=== PATIENT | male | born 1960 | race Caucasian/White ===

== ENCOUNTER 2016-09-17 16:35 | Inpatient (IN) ==
[2016-09-17] MEDS ORDERED: Td (TENIVAC) Vaccine 0.5 ML VIAL IM ONE (18:49)
[2016-09-17] MEDS ORDERED: Ondansetron 4 MG/2 ML VIAL IVP PRN (18:53)
[2016-09-17] MEDS ORDERED: Naloxone 0.4 MG/ML INJ IVP PRN ×2 (18:53→19:52)
[2016-09-17] MEDS ORDERED: NON-FORMULARY MEDICATION 1 EACH EACH (Ranitidine Hcl [Zantac] 150 MG) PO PRN (19:44)
[2016-09-17] MEDS ORDERED: Ibuprofen 800 MG TABLET PO PRN (19:44)
[2016-09-17] MEDS ORDERED: Dextrose Gel 15 GM PO PRN ×2 (19:56)
--- NOTE | 2016-09-17 20:04 | Internal Med History&Physical ---
Date of Encounter: 09/17/16 Time of Encounter: 20:01 Assessment and Plan (1) Sepsis affecting skin Current visit: Yes Status: Acute Discussed case with Dr. boateng podiatry on-call. Supportive care with IV antibiotics vancomycin and Zosyn and clindamycin. IV fluids with boluses. Nothing by mouth for now (2) Gangrene of left foot Current visit: Yes Status: Acute Management as above (3) Diabetes mellitus, insulin dependent (IDDM), controlled Current visit: Yes Status: Acute Insulin sliding scale Internal Medicine - H&P: HPI Chief complaint: Worsening left foot gangrene History of present illness: Mr. Alonso is a 55 year old male with hx of DMII on insulin who presents with worsening Left foot gangrene. It was reported that he stepped on a dirty nail several days ago and was treated with outpatient clindamycin but represents due to failure of therapy. Imaging in the ER suggested gas changes in soft tissue. Was also noted to be toxic and hypotensive. No cx sent prior to antibiotics. Reported hx of drug use or alcohol but unable to accurately verify with patient. Past Med Surg Social Fam HX - Past Medical History Medical history: COPD, diabetes, hypertension, other Psychiatric history: no psych history - Past Surgical History Surgical History: no surgical history - Social History Smoking Status: Current every day smoker Smokeless Tobacco Status: No (UNKNOWN) Alcohol use: occasionally Drug use: opiates, marijuana Internal Medicine - H&P: Meds Insulin NPH/REG 70/30 0 units SQ BID 10/27/15 [History] Metoprolol [Lopressor] 50 mg PO DAILY 10/27/15 [History] Ranitidine HCl [Zantac] 150 mg PO DAILY PRN 08/31/16 [History] Amlodipine Besylate 10 mg PO DAILY #30 tablet 09/09/16 [Rx] Clindamycin HCl 300 mg PO Q6H #40 capsule 09/09/16 [Rx] Doxazosin [Cardura] 4 mg PO HS #30 tablet 09/09/16 [Rx] Magnesium Oxide [Mag-Ox] 400 mg PO BID #14 tablet 09/09/16 [Rx] Ibuprofen 800 mg PO TID PRN #15 tablet 09/16/16 [Rx] Aspirin [Ecotrin] 325 mg PO DAILY 09/17/16 [History] FLUoxetine HCl [PROzac] 20 mg PO DAILY 09/17/16 [History] Lisinopril [Zestril] 10 mg PO DAILY 09/17/16 [History] Multivit-Min/Iron Fum/Folic AC [Wegco-Woysdyu-Pvrgulba Tablet] 1 each PO DAILY 09/17/16 [History] Allergies No Known Allergies Allergy (Verified 10/27/15 15:30) All Systems PM: ROS 14 point review of systems reviewed as best as possible given presentation. Pertinent positive or negative as per HPI or otherwise reviewed as negative - Constitutional Vitals: Temp Pulse Resp BP Pulse Ox 98.3 F 96 40 89/54 100 09/17/16 19:05 09/17/16 19:05 09/17/16 19:20 09/17/16 19:20 09/17/16 19:20 Exam: General - somnolent Eyes - OSIEL. Eye lids intact. No scleral icterus ENT - Oral mucosa pink, dentition intact. External ear clear/dry/intact. No thyromegaly Lymphatics - No cervical/inguinal lympadenopathy Heart - Sinus tachycardia. RRR. S1 and S2 present. No added HS/murmurs appreciated. No elevated JVD appreciated. No calf swellings/erythema Lung - Adequate air entry b/l, No crackes/wheezes appreciated GI - Soft, non-tender. No hepatosplenomegaly/ascities. BS+ - No CVA/suprapubic tenderness or palpable bladder distension Skin - gangrene of left foot MSK - gangrene of left foot with swelling
[2016-09-17] MEDS: 0.9 % Sodium Chloride 1,000 ML IVC SCH ×2 (20:20→23:14)
[2016-09-17] MEDS: Clindamycin 600 MG/50 ML 600 MG/50 ML IV.SOLN IVPB SCH (23:14)
[2016-09-17] MEDS: Piperacillin/Tazobactam 3.375 GM in D5% in Water (Mini-Bag+) 100 ML IVPB SCH (23:14)
--- NOTE | 2016-09-17 23:56 | Podiatry Consult Note ---
Date of Encounter: 09/17/16 Time of Encounter: 23:53 Assessment and Plan (1) Cellulitis Current visit: No Status: Acute The cellulitis is minimal on the patient's foot. The majority of the wound looks as though it is ischemic in nature. The significant ischemia is concerning and for that reason we will order ABIs and consider vascular intervention pending the OMI. At the bedside the wound was debrided to evaluate for any necrotizing fasciitis. A wound debridement at bedside was completed, a 2 cm diameter site was opened on the lateral aspect of the foot to inspect and evaluate for any gas. Cultures were obtained and the site was dressed with Betadine and a dry sterile dressing. At this time we will delay any surgical intervention until the ABIs are back at which time we may need some sort of bypass to increase the patient's blood flow. Qualifiers: Site of cellulitis: extremity Site of cellulitis of extremity: lower extremity Laterality: left Qualified Code(s): L03.116 - Cellulitis of left lower limb History of Present Illness Chief complaint: ischemia left foot HPI: Mr. Alonso is a 55 year old male who stepped on a nail and has an infected wound that has not healed. Patient is relatively unresponsive at this time. Past Med Surg Social Fam HX - Past Medical History Medical history: COPD, diabetes, hypertension, other Psychiatric history: no psych history - Past Surgical History Surgical History: no surgical history - Social History Smoking Status: Current every day smoker Smokeless Tobacco Status: No (UNKNOWN) Alcohol use: occasionally Drug use: opiates, marijuana Medications and Allergies Insulin Aspart Prot/Insuln Asp [Novolog Mix 70-30 Flexpen Syrn] 0 unit SQ BID # 0 10/27/15 [History] Metoprolol [Lopressor] 50 mg PO DAILY 10/27/15 [History] Ranitidine HCl [Zantac] 150 mg PO BID PRN 08/31/16 [History] Amlodipine Besylate 10 mg PO DAILY #30 tablet 09/09/16 [Rx] Doxazosin [Cardura] 4 mg PO HS #30 tablet 09/09/16 [Rx] Magnesium Oxide [Mag-Ox] 400 mg PO BID #14 tablet 09/09/16 [Rx] Ibuprofen 800 mg PO TID PRN #15 tablet 09/16/16 [Rx] Aspirin [Ecotrin] 325 mg PO DAILY 09/17/16 [History] FLUoxetine HCl [PROzac] 20 mg PO DAILY 09/17/16 [History] Lisinopril [Zestril] 20 mg PO DAILY 09/17/16 [History] Multivit-Min/Iron Fum/Folic AC [Lkafr-Aqivorr-Pnvoufuh Tablet] 1 tab PO DAILY [History] Allergies No Known Allergies Allergy (Verified 10/27/15 15:30) All Systems Reviewed: A 10-system review of systems was performed and is negative for pertinent findings except as documented above in the HPI. Physical Exam - Constitutional Vitals: Temp Pulse Resp BP Pulse Ox 97.5 F L 97 26 93/62 100 09/17/16 20:08 09/17/16 21:00 09/17/16 20:15 09/17/16 21:00 09/17/16 20:15 Exam: Left foot ischemia, lateral plantar aspect of the foot and a small amount on the lateral aspect of the foot. The ischemia measures approximately 5 cm in diameter. Pedal pulses difficult to palpate. Will obtain ABIs to further evaluate vascularity. Sensation decreased. The wound was thoroughly explored on the lateral aspect of the foot and opened. It was noted to probe to bone and had a small amount of air under the wound. There did not appear to be gas or necrotizing fasciitis but free air and a wound. Very minimal purulence noted. The wound was more consistent with an ischemic wound. Cultures were obtained. Results - Labs Labs: Abnormal lab results POC Glucose 152 (58-89) H 09/17/16 18:40 All other labs normal. Consult Discharge Plan - Plan Referrals: Mara Kiser WEB PRESS OPERATOR [Primary Care Provider] -
[2016-09-18] MEDS: *HR* Dextrose 50 % in Water (Syg) 50 ML SYRINGE IVP PRN ×2 (00:02→04:46)
[2016-09-18] MEDS: Insulin LISPRO 300 UNITS/3 ML VIAL SQ SCH ×5 (00:02→23:25)
[2016-09-18] MEDS ORDERED: *HR* LORazepam 2 MG/ML VIAL IVP PRN ×3 (02:36)
[2016-09-18 04:10] LABS: Basophils % 0.2 %; Eosinophils # 0.1 K/mcL (0.0-0.6); Eosinophils % 0.4 %; Hematocrit 22.7 % (37.5-50.1); Hemoglobin 7.5 g/dL (12.9-16.9); Immature Granulocytes % 1.1 % (0-4); Lymphocytes # 1.2 K/mcL (0.6-4.6); Lymphocytes % 9.4 %; Mean Corpuscular Hemoglobin 32.8 pg (28.0-33.3); Mean Corpuscular Volume 99.1 fL (83.0-100.0); Mean Platelet Volume 8.9 fL (9.4-12.4); Monocytes # 1.1 K/mcL (0.0-1.3); Monocytes % 8.4 %; Neutrophils # 10.6 K/mcL (1.6-8.9); Platelet Count 311 K/mcL (140-400); Red Blood Count 2.29 M/mcL (4.19-5.50); Red Cell Distribution Width 13.4 % (11.5-14.5); Segmented Neutrophils % 80.5 %
[2016-09-18 04:25] LABS: Calcium 7.2 mg/dL (8.6-10.8); Potassium 3.3 mEq/L (3.5-4.5)
[2016-09-18] MEDS: D5% in Water 1,000 ML IVC PRN (04:44)
[2016-09-18] MEDS: 0.9 % Sodium Chloride 1,000 ML IVC SCH ×4 (04:48→13:52)
[2016-09-18] MEDS: *HR* Enoxaparin 30 MG/0.3 ML SYRINGE SQ SCH (04:48)
[2016-09-18] MEDS: Clindamycin 600 MG/50 ML 600 MG/50 ML IV.SOLN IVPB SCH ×3 (08:17→23:18)
[2016-09-18] MEDS: Pantoprazole 40 MG VIAL IVP SCH (08:18)
[2016-09-18] MEDS ORDERED: Aspirin Enteric Coated 325 MG Tablet PO SCH (09:00)
[2016-09-18] MEDS ORDERED: Vancomycin 0 MG in D5% in Water 250 ML IVPB SCH (09:00)
[2016-09-18] MEDS: Piperacillin/Tazobactam 3.375 GM in D5% in Water (Mini-Bag+) 100 ML IVPB SCH ×3 (09:32→23:19)
[2016-09-18] MEDS: FLUoxetine 20 MG CAPSULE PO SCH (09:35)
[2016-09-18] MEDS ORDERED: Td (TENIVAC) Vaccine 0.5 ML VIAL IM ONE (11:04)
--- NOTE | 2016-09-18 11:48 | Internal Med Progress Note ---
Date of Encounter: 09/18/16 Time of Encounter: 10:00 - Assessment and plan (1) COPD (chronic obstructive pulmonary disease) Current Visit: No Status: Acute Assessment and plan: Patient has wheezes today. Will give him DuoNeb treatment. Will check ABG and chest x-ray. Qualifiers: COPD type: unspecified COPD Qualified Code(s): J44.9 - Chronic obstructive pulmonary disease, unspecified (2) Hypertension Current Visit: No Status: Chronic Assessment and plan: Continue home medications. BP is stable Qualifiers: Hypertension type: essential hypertension Qualified Code(s): I10 - Essential (primary) hypertension (3) Diabetes mellitus, insulin dependent (IDDM), controlled Current Visit: Yes Status: Acute Assessment and plan: Patient has hypoglycemia yesterday. Glucose level [address] patient on sliding-scale coverage only. Closely monitor glucose level. (4) Gangrene of left foot Current Visit: Yes Status: Acute Assessment and plan: We will continue IV fluid, IV antibiotic (cover both aerobic and anaerobic). Lactate level is not high. Podiatry saw patient. Had debridement. Will give patient TD vaccine. Patient is at high risk because he is on vancomycin, need close monitoring. - Time Spent With Patient Greater than 35 minutes - Subjective Interval history: Patient is a 55-year-old male admitted for foot gangrene after step on nails. Past medical history is significant for diabetes, COPD, CKD, hypertension. I saw and examined the patient today. Patient is quite drowsy, very difficult to wake up. Has wheezing. Will order chest x-ray and ABG stat to rule out COPD exacerbation. Vital signs generally stable. Will continue antibiotic, IV fluid, and closely monitor patient. - Constitutional Vitals: Temp Pulse Resp BP Pulse Ox 96.9 F L 97 18 112/64 99 09/18/16 09:36 09/18/16 09:36 09/18/16 09:36 09/18/16 09:36 09/18/16 09:36 General appearance: Present: mild distress Exam: Drowsy, cannot communicate. - Head Head exam: Present: atraumatic, normocephalic - Eye Eye exam: Present: PERRL, conjuntiva pink, sclera anicteric Pupils: Present: PERRL - Neck Neck exam general surgery: Present: supple, trachea midline. Absent: lymphadenopathy - Respiratory Respiratory exam: Present: CTAB. Absent: accessory muscle use, rales, rhonchi, wheezes - Cardiovascular Cardiovascular exam: Present: RRR, +S1, +S2. Absent: diastolic murmur, gallop, rubs, systolic murmur - GI/Abdominal GI/Abdominal exam: Present: normal bowel sounds, soft, no peritoneal signs. Absent: distended, tenderness - Extremities Exam Extremities exam: Present: warm, radial pulses palpable and symetrical. Absent : calf tenderness, cyanotic, pedal edema Additional comments: Left foot gangrene, well dressed. - Neurological Exam Neurological exam: Present: CN II-XII intact, oriented X3, no focal deficits. Absent: pronater drift, facial droop, speech deficit - Skin Skin exam: Present: dry, intact Internal Medicine: Result - Labs CBC & Chem 7: 09/18/16 03:54 09/18/16 03:54 Labs: Short CBC 09/18/16 Range/Units 03:54 WBC 13.2 H (4.3-11.1) K/mcL Hgb 7.5 L (12.9-16.9) g/dL Hct 22.7 L (37.5-50.1) % Plt Count 311 (140-400) K/mcL Neutrophils # 10.6 H (1.6-8.9) K/mcL BMP 09/18/16 03:54 Sodium 137 Potassium 3.3 L Chloride 111 H Carbon Dioxide 16 L BUN 57 H Creatinine 1.77 H Glucose 35 L* Calcium 7.2 L Consult Discharge Plan - Plan Referrals: Mara Kiser, SHIRRING MACHINE OPERATOR AUTOMATIC [Primary Care Provider] -
[2016-09-18] MEDS ORDERED: Ipratropium/Albuterol Neb 3 ML IH PRN (11:54)
[2016-09-18 12:39] LABS: ABG Base Excess -9.4 mEq/L (-2.0 to 3.0); ABG HCO3 14.2 mEQ/L (21-27); ABG Oxygen Saturation 99 % (95-98); ABG PCO2 23 mmHg (35-45); ABG PO2 129 mmHg (85-104); ABG TCO2 14.9 mEq/L (20-26)
[2016-09-18 12:40] LABS: Blood Gas Liter Flow 2 L/MIN
[2016-09-18] MEDS ORDERED: Potassium Chloride 40 MEQ, Lidocaine 1% 2 ML in D5% in Water 500 ML IVPB ONE ×2 (12:53→18:22)
[2016-09-18] MEDS ORDERED: Sodium Bicarbonate 150 MEQ in D5% in Water 1,000 ML IVC SCH (13:00)
--- NOTE | 2016-09-18 13:40 | Event Note ---
Date of Encounter: 09/18/16 Time of Encounter: 12:00 Pt's ABG shows metabolic acidosis and respiratory alkalosis, PH 7.40. BE - 9.0. Pt has no hypoxia or CO2 retention. Will start bicarbonate drip to correct acidosis. Aspirin overdose suspected, will check salicylate level (one item not support aspirin toxicity is that AG is only 11, not increased). Lactate is 0.3. CXR shows right lung pneumonia, pt is on abx Vanco, zosyn, and clindamycin already.
[2016-09-18] MEDS: Ipratropium/Albuterol Neb 3 ML IH SCH ×3 (14:28→20:17)
[2016-09-18] MEDS: Vancomycin 1,000 MG in D5% in Water 250 ML IVPB SCH (15:35)
[2016-09-19] MEDS: Ipratropium/Albuterol Neb 3 ML IH SCH ×7 (00:20→23:52)
[2016-09-19 01:29] LABS: Basophils % 0.3 %; Eosinophils # 0.1 K/mcL (0.0-0.6); Eosinophils % 0.9 %; Hematocrit 24.1 % (37.5-50.1); Hemoglobin 8.1 g/dL (12.9-16.9); Immature Granulocytes % 1.5 % (0-4); Lymphocytes # 1.5 K/mcL (0.6-4.6); Lymphocytes % 11.4 %; Mean Corpuscular HGB Conc 33.6 g/dL (31.6-35.5); Mean Corpuscular Hemoglobin 33.5 pg (28.0-33.3); Mean Corpuscular Volume 99.6 fL (83.0-100.0); Monocytes # 1.2 K/mcL (0.0-1.3); Monocytes % 9.3 %; Neutrophils # 9.9 K/mcL (1.6-8.9); Platelet Count 313 K/mcL (140-400); Red Blood Count 2.42 M/mcL (4.19-5.50); Red Cell Distribution Width 13.7 % (11.5-14.5); Segmented Neutrophils % 76.6 %
[2016-09-19 01:41] LABS: Alanine Aminotransferase 102 Units/L (0-55); Albumin/Globulin Ratio 0.6 (1.1-2.2); Alkaline Phosphatase 269 Units/L (38-126); Aspartate Amino Transferase 257 Units/L (5-34); BUN/Creatinine Ratio 27 (6-26); Calcium 7.2 mg/dL (8.6-10.8); Carbon Dioxide 21 mEq/L (19-29); Chloride 107 mEq/L (98-109); Globulin 3.4 g/dL (2.4-3.5); Glucose 140 mg/dL (70-99); Magnesium 1.9 mg/dL (1.6-2.6); Osmolality,Calculated 292 (280-300); Phosphorous 2.3 mg/dL (2.3-4.7); Potassium 3.2 mEq/L (3.5-4.5); Sodium 135 mEq/L (136-145); Total Protein 5.3 g/dL (6.0-8.3); eGFR For African Americans > 60 (> 60); eGFR For Non-African Americans 51 (> 60)
[2016-09-19 01:42] LABS: Albumin 1.9 g/dL (3.5-5.0); Bilirubin,Total < 0.3 mg/dL (0.2-1.2); Blood Urea Nitrogen 39 mg/dL (8-26)
[2016-09-19 02:03] LABS: Thyroid Stimulating Hormone 1.503 mcIU/mL (0.350-4.840)
[2016-09-19] MEDS ORDERED: Sodium Bicarbonate 150 MEQ in D5% in Water 1,000 ML IVC SCH (06:00)
[2016-09-19] MEDS: Insulin LISPRO 300 UNITS/3 ML VIAL SQ SCH ×3 (06:14→17:20)
[2016-09-19] MEDS: *HR* Enoxaparin 30 MG/0.3 ML SYRINGE SQ SCH (06:14)
[2016-09-19] MEDS: Clindamycin 600 MG/50 ML 600 MG/50 ML IV.SOLN IVPB SCH ×2 (08:49→17:20)
[2016-09-19] MEDS: FLUoxetine 20 MG CAPSULE PO SCH (08:49)
[2016-09-19] MEDS: Pantoprazole 40 MG VIAL IVP SCH (08:49)
[2016-09-19] MEDS ORDERED: *HR* HYDROcodone/Acet 5/325 mg TABLET PO PRN (09:33)
[2016-09-19] MEDS: Piperacillin/Tazobactam 3.375 GM in D5% in Water (Mini-Bag+) 100 ML IVPB SCH ×2 (09:57→17:21)
[2016-09-19] MEDS: 0.9 % Sodium Chloride 1,000 ML IVC SCH (10:07)
--- NOTE | 2016-09-19 11:05 | Arterial Study Report ---
LE Arterial Physiologic Study Patient Name:Isaac Alonso Order Number:[id number] Procedure Date:09/18/2016 Date:1960ge:55 yrs Gender:Male Lt BP:117 / mmHg Rt.BP:115 / mmHgHeart Rate: Location:[facility] Room #: 2N6 Cable Splicer Assistant:Nahomy cMdonald RDCS Referring MD:Pablito Shabazz DPM insulation board back tender:Mara Kiser, BACK SIZER Reading MD:Cali Casey MD , FACS Primary Indications:Ischemia Risk Factors Yes/No Hypertension Yes Diabetes Yes Smoking Current Yes Hypercholesterolemia Yes Anticoagulants Unknown Previous Vascular Surgery Unknown Impressions: 1) Bilateral lower extremities waveform demonstrates moderately diminished hemodynamics. 2) Bilateral Ankle Brachial Index demonstrates moderately occlusive disease. Recommendations: Futher evaluation is recommended. Findings LE Arterial Physiologic Exam: Segmental Pressures: Right: The right posterior tibial pressure is 76 mmHg with an index of 0.65. The right dorsalis pedis pressure is 70 mmHg with an index of 0.6. Left: The left posterior tibial pressure is 71 mmHg with an index of 0.61. The left dorsalis pedis pressure is 80 mmHg with an index of 0.68. PVR: Right: The PVR waveforms are moderately diminished in the right ankle. Left: The PVR waveforms are moderately diminished in the left ankle. Physiologic Test Results: The OMI demonstrates moderate arterial insufficiency on the right and left at rest. Prior Study: No significant change compared to prior study dated: 08/02/2014. PREV RT OMI 0.65 PREV LEFT OMI 0.68. Segmental Pressures Side Location Pressure Index Result Right Posterior Tibial 76 0.65 Moderately Diminished Right Dorsalis Pedis 70 0.60 Moderately Diminished Left Posterior Tibial 71 0.61 Moderately Diminished Left Dorsalis Pedis 80 0.68 Moderately Diminished Ankle Brachial Index Right Systolic Diastolic OMI Brachial 115 0.65 Dorsalis Pedis 70 0.60 Posterior Tibial 76 0.65 Left Systolic Diastolic OMI Brachial 117 0.68 Dorsalis Pedis 80 0.68 Posterior Tibial 71 0.61 Updated by Cali Casey MD, FACS on 09/19/2016 11:02:02 AM with Status of Final Cali Casey MD electronically signed on 09/19/2016 11:02:18 AM with status of Final
--- NOTE | 2016-09-19 14:36 | Internal Med Progress Note ---
Date of Encounter: 09/19/16 Time of Encounter: 10:00 - Assessment and plan (1) COPD (chronic obstructive pulmonary disease) Current Visit: No Status: Acute Assessment and plan: Patient has no wheezes today. Will continue home medication and DuoNeb treatment. Qualifiers: COPD type: unspecified COPD Qualified Code(s): J44.9 - Chronic obstructive pulmonary disease, unspecified (2) Hypertension Current Visit: No Status: Chronic Assessment and plan: Continue home medications. BP is stable Qualifiers: Hypertension type: essential hypertension Qualified Code(s): I10 - Essential (primary) hypertension (3) Diabetes mellitus, insulin dependent (IDDM), controlled Current Visit: Yes Status: Acute Assessment and plan: Place patient on sliding-scale coverage. Closely monitor glucose level. (4) Gangrene of left foot Current Visit: Yes Status: Acute Assessment and plan: We will continue IV fluid, IV antibiotic (cover both aerobic and anaerobic with Vanco, Zosyn, and clindamycin). Lactate level is not high. Podiatry saw patient. Had debridement. Will give patient TD vaccine. Patient is at high risk because he is on vancomycin, need close monitoring. (5) Pneumonia Current Visit: Yes Status: Acute Assessment and plan: Chest x-ray shows pneumonia on the right side. Patient has minimal symptoms. Continue antibiotic treatment. Qualifiers: Pneumonia type: due to Pneumococcus Laterality: right Lung location: unspecified part of lung Qualified Code(s): J13 - Pneumonia due to Streptococcus pneumoniae (6) Ofivx-sn-zpobcra kidney injury Current Visit: Yes Status: Acute Assessment and plan: Will continue hydration and follow up his renal function. Creatinine trended down. Qualifiers: Acute renal failure type: unspecified Chronic kidney disease stage: stage 2 (mild) Qualified Code(s): N17.9 - Acute kidney failure, unspecified; N18.2 - Chronic kidney disease, stage 2 (mild) (7) Elevated liver enzymes Current Visit: Yes Status: Acute Assessment and plan: Probably due to sepsis. However, need to rule out liver disease. We will check US liver and hepatitis panel. Follow-up liver function. (8) Metabolic acidosis Current Visit: Yes Status: Acute Assessment and plan: Improved after treatment. - Time Spent With Patient Greater than 35 minutes - Subjective Interval history: Patient is a 55-year-old male admitted for foot gangrene after step on nails. Past medical history is significant for diabetes, COPD, CKD, hypertension. I saw and examined the patient today. Patient is more awake, alert today. Oriented x 3. Denies cough or SOB. Vitals stable, metabolic acidosis has improved, bicarbonate drip has discontinued. Continue IV antibiotics for pneumonia and foot infection. - Constitutional Vitals: Temp Pulse Resp BP Pulse Ox 97.5 F L 99 18 121/78 100 09/19/16 11:08 09/19/16 11:52 09/19/16 11:08 09/19/16 11:08 09/19/16 11:08 General appearance: Present: mild distress, A&O X 3, no acute distress, answers questions appropriately - Head Head exam: Present: atraumatic, normocephalic - Eye Eye exam: Present: PERRL, conjuntiva pink, sclera anicteric Pupils: Present: PERRL - Neck Neck exam general surgery: Present: supple, trachea midline. Absent: lymphadenopathy - Respiratory Respiratory exam: Present: CTAB. Absent: accessory muscle use, rales, rhonchi, wheezes - Cardiovascular Cardiovascular exam: Present: RRR, +S1, +S2. Absent: diastolic murmur, gallop, rubs, systolic murmur - GI/Abdominal GI/Abdominal exam: Present: normal bowel sounds, soft, no peritoneal signs. Absent: distended, tenderness - Extremities Exam Extremities exam: Present: warm, radial pulses palpable and symetrical. Absent : calf tenderness, cyanotic, pedal edema Additional comments: Left foot wound/infection. - Neurological Exam Neurological exam: Present: CN II-XII intact, oriented X3, no focal deficits. Absent: pronater drift, facial droop, speech deficit - Skin Skin exam: Present: dry, intact Internal Medicine: Result - Labs CBC & Chem 7: 09/19/16 01:16 09/19/16 01:16 Labs: Short CBC 09/19/16 Range/Units 01:16 WBC 13.0 H (4.3-11.1) K/mcL Hgb 8.1 L (12.9-16.9) g/dL Hct 24.1 L (37.5-50.1) % Plt Count 313 (140-400) K/mcL Neutrophils # 9.9 H (1.6-8.9) K/mcL BMP 07/30/17 01:16 Sodium 135 L Potassium 3.2 L Chloride 107 Carbon Dioxide 21 BUN 39 H D Creatinine 1.43 H Glucose 140 H Calcium 7.2 L Liver Function 09/19/16 Range/Units 01:16 Total Bilirubin < 0.3 (0.2-1.2) mg/dL AST 257 H (5-34) Units/L ALT 102 H (0-55) Units/L Alkaline Phosphatase 269 H (38-126) Units/L Albumin 1.9 L D (3.5-5.0) g/dL - ABG Interpretation ABG results: ABG ABG pH 7.40 pH Units (7.32-7.45) 09/18/16 12:30 ABG pCO2 23 mmHg (35-45) L 09/18/16 12:30 ABG pO2 129 mmHg (85-104) H 09/18/16 12:30 ABG O2 Saturation 99 % (95-98) H 09/18/16 12:30 Consult Discharge Plan - Plan Referrals: Mara Kiser, STROKE BELT SANDER OPERATOR [Primary Care Provider] -
[2016-09-19] MEDS: Vancomycin 1,000 MG in D5% in Water 250 ML IVPB SCH (14:42)
[2016-09-19] MEDS: *HR* OxyCODONE/APAP 5/325 TABLET PO PRN ×2 (14:42→20:58)
[2016-09-19] MEDS ORDERED: Insulin LISPRO 300 UNITS/3 ML VIAL SQ SCH (21:00)
[2016-09-20] MEDS: Piperacillin/Tazobactam 3.375 GM in D5% in Water (Mini-Bag+) 100 ML IVPB SCH ×4 (00:03→23:47)
[2016-09-20] MEDS: *HR* HYDROcodone/Acet 5/325 mg TABLET PO PRN ×2 (00:03→21:14)
[2016-09-20] MEDS: Clindamycin 600 MG/50 ML 600 MG/50 ML IV.SOLN IVPB SCH ×4 (00:03→23:47)
[2016-09-20] MEDS: Ipratropium/Albuterol Neb 3 ML IH SCH ×6 (03:52→23:02)
[2016-09-20 04:19] LABS: Basophils % 0.3 %; Eosinophils # 0.2 K/mcL (0.0-0.6); Eosinophils % 1.2 %; Hematocrit 22.3 % (37.5-50.1); Hemoglobin 7.3 g/dL (12.9-16.9); Immature Granulocytes % 1.9 % (0-4); Lymphocytes # 1.9 K/mcL (0.6-4.6); Lymphocytes % 13.3 %; Mean Corpuscular HGB Conc 32.7 g/dL (31.6-35.5); Mean Corpuscular Volume 100.9 fL (83.0-100.0); Mean Platelet Volume 9.1 fL (9.4-12.4); Monocytes # 1.3 K/mcL (0.0-1.3); Monocytes % 9.3 %; Neutrophils # 10.6 K/mcL (1.6-8.9); Platelet Count 347 K/mcL (140-400); Red Blood Count 2.21 M/mcL (4.19-5.50); Red Cell Distribution Width 13.8 % (11.5-14.5)
[2016-09-20 04:39] LABS: Albumin/Globulin Ratio 0.6 (1.1-2.2); Bilirubin,Total 0.3 mg/dL (0.2-1.2); Calcium 7.6 mg/dL (8.6-10.8); Globulin 3.5 g/dL (2.4-3.5); Potassium 4.1 mEq/L (3.5-4.5); Total Protein 5.5 g/dL (6.0-8.3)
[2016-09-20] MEDS: *HR* OxyCODONE/APAP 5/325 TABLET PO PRN ×3 (05:15→17:22)
[2016-09-20] MEDS: *HR* Enoxaparin 30 MG/0.3 ML SYRINGE SQ SCH (05:15)
[2016-09-20] MEDS: Pantoprazole 40 MG VIAL IVP SCH (08:15)
[2016-09-20] MEDS: FLUoxetine 20 MG CAPSULE PO SCH (08:16)
[2016-09-20] MEDS: 0.9 % Sodium Chloride 1,000 ML IVC SCH ×3 (08:16→23:48)
[2016-09-20] MEDS: Lactobacillus 1 EACH CAP.SPRINK PO SCH (08:16)
[2016-09-20] MEDS: Insulin LISPRO 300 UNITS/3 ML VIAL SQ SCH ×3 (08:23→16:44)
[2016-09-20 12:06] LABS: Hepatitis A Antibody IgM Nonreactive (Nonreactive); Hepatitis B Core IgM Nonreactive (Nonreactive); Hepatitis B Surface Antigen Nonreactive (Nonreactive); Hepatitis C Virus Antibody Nonreactive (Nonreactive)
--- NOTE | 2016-09-20 13:40 | Vascular/Endovasc Consult Note ---
Date of Encounter: 09/20/16 Time of Encounter: 13:38 Assessment and Plan (1) PAD (peripheral artery disease) Current Visit: Yes Status: Acute Patient has a two-year history of lower extremity pain suggesting femoral popliteal occlusive disease. The patient now has a significant and limb threatening process involving the left foot due to the infection related to stepping on the nail. Because of the severity of the ischemia and the gross tissue necrosis I recommended an angiogram soon as possible. The patient has eaten lunch and so he is not appropriate candidate for angiogram now so therefore we will try to schedule this for tomorrow afternoon. The patient does have a limb threatening process at this time. (2) COPD (chronic obstructive pulmonary disease) Current Visit: Yes Status: Chronic Patient under medical treatment for chronic COPD Qualifiers: COPD type: unspecified COPD Qualified Code(s): J44.9 - Chronic obstructive pulmonary disease, unspecified (3) Cellulitis Current Visit: Yes Status: Acute Left foot cellulitis and probable deeper tissue involvement. This will be followed by podiatry. Qualifiers: Site of cellulitis: extremity Site of cellulitis of extremity: lower extremity Laterality: left Qualified Code(s): L03.116 - Cellulitis of left lower limb - History of Present Illness Consult date: 09/20/16 Requesting physician: Laura Wright Consult reason: ischemic left foot Chief complaint: left foot wound History of present illness: Mr. Alonso is a 55 year old male Seen today for ischemia of the left foot. The patient states that he had stepped on a nail about 1 month ago. He had been seen at [facility] and was treated there though it is unclear as to the duration or type of treatment he received. The patient freely admits that he was trying to treat the problem by himself and obviously unsuccessfully. He was thus admitted over the weekend and placed on an aggressive course of intravenous antibiotics. He had a debridement performed by the podiatry service. Noninvasive testing was performed which revealed an ankle-brachial index of 0.6 bilaterally. On further review with the patient he states that he has been having bilateral lower extremity pain for the past 2 years. His ambulation distance is less than 1 block when the lower extremity pain causes him to stop and rest. This is been a progressive process for the patient and his walking distance has been dropping over the past 2 years. He denies any ischemic rest pain or nocturnal rest pain. He has not had any previous vascular interventions or lower extremity bypass grafting. The patient does have significant risk factors for vascular disease. Past Med Surg Social Fam HX - Past Medical History Medical history: COPD, diabetes, hypertension, other Psychiatric history: no psych history - Past Surgical History Surgical History: no surgical history - Social History Smoking Status: Current every day smoker Smokeless Tobacco Status: No (UNKNOWN) Alcohol use: occasionally Drug use: opiates, marijuana Medications and Allergies Insulin Aspart Prot/Insuln Asp [Novolog Mix 70-30 Flexpen Syrn] 0 unit SQ BID # 0 10/27/15 [History] Metoprolol [Lopressor] 50 mg PO DAILY 10/27/15 [History] Ranitidine HCl [Zantac] 150 mg PO BID PRN 08/31/16 [History] Amlodipine Besylate 10 mg PO DAILY #30 tablet 09/09/16 [Rx] Doxazosin [Cardura] 4 mg PO HS #30 tablet 09/09/16 [Rx] Magnesium Oxide [Mag-Ox] 400 mg PO BID #14 tablet 09/09/16 [Rx] Ibuprofen 800 mg PO TID PRN #15 tablet 09/16/16 [Rx] Aspirin [Ecotrin] 325 mg PO DAILY 09/17/16 [History] FLUoxetine HCl [PROzac] 20 mg PO DAILY 09/17/16 [History] Lisinopril [Zestril] 20 mg PO DAILY 09/17/16 [History] Multivit-Min/Iron Fum/Folic AC [Ivsde-Azlkirw-Bkkapitv Tablet] 1 tab PO DAILY [History] Allergies No Known Allergies Allergy (Verified 10/27/15 15:30) All Systems Review: A 10-system review of systems was performed and is negative for pertinent findings except as documented above in the HPI. Exam Vital Signs, Last 4 Hours Temp Pulse Resp BP Pulse Ox 09/20/16 12:04 98.6 F 110 18 125/72 98 09/20/16 11:10 108 General: Present: Conversant, No Apparent Distress, Well developed, Well nourished, Other (Disheveled white male.) HEENT: Present: Atraumatic, Normocephaly, Trachea midline Neck: Absent: JVD, Left Carotid bruit, Right Carotid bruit, Midline deformity, Tracheal deviation Cardiac: Present: Reg Rate and Rhythm, Normal S1 and S2, No Murmur Lungs: Present: Normal Breath Sounds Neuro: Present: Alert and responsive, No focal deficits noted Abdomen: Present: Soft, Non-tender. Absent: Hepatosplenomegaly, Masses Vascular: Present: Pulse, absent, Cyanosis, Other (Patient has a black distal plantar surface over the lateral aspect over the fourth and fifth metatarsal region. This also includes the fourth and fifth toes. He is status post a wound on the lateral aspect of the foot from the debridement performed earlier this weekend. Patient also has redness over the dorsum of the foot extending to above the ankle. This area is tender to manipulation. There is no signs of gas or bleb formation however. The patient has hair on the dorsum of his feet and toes. There is a strong odor from the left foot indicating necrotic tissue) Consult Discharge Plan - Plan Referrals: Mara Kiser, LINDERMAN MACHINE OPERATOR [Primary Care Provider] -
[2016-09-20] MEDS: Vancomycin 1,000 MG in D5% in Water 250 ML IVPB SCH (14:55)
--- NOTE | 2016-09-20 17:29 | Internal Med Progress Note ---
Date of Encounter: 09/20/16 Time of Encounter: 10:00 - Assessment and plan (1) COPD (chronic obstructive pulmonary disease) Current Visit: Yes Status: Chronic Assessment and plan: Patient has no wheezes today. Will continue home medication and DuoNeb treatment. Qualifiers: COPD type: unspecified COPD Qualified Code(s): J44.9 - Chronic obstructive pulmonary disease, unspecified (2) Hypertension Current Visit: No Status: Chronic Assessment and plan: Continue home medications. BP is stable Qualifiers: Hypertension type: essential hypertension Qualified Code(s): I10 - Essential (primary) hypertension (3) Diabetes mellitus, insulin dependent (IDDM), controlled Current Visit: Yes Status: Acute Assessment and plan: Place patient on basal and sliding-scale coverage. Closely monitor glucose level. (4) Gangrene of left foot Current Visit: Yes Status: Acute Assessment and plan: We will continue IV fluid, IV antibiotic (cover both aerobic and anaerobic with Vanco, Zosyn, and clindamycin). Lactate level is not high. Podiatry saw patient. Had debridement. Have given patient TD vaccine. WBC is still high. Patient is at high risk because he is on vancomycin, need close monitoring. (5) Pneumonia Current Visit: Yes Status: Acute Assessment and plan: Chest x-ray shows pneumonia on the right side. Patient has minimal symptoms. On broad spectrum antibiotic treatment. Qualifiers: Pneumonia type: due to Pneumococcus Laterality: right Lung location: unspecified part of lung Qualified Code(s): J13 - Pneumonia due to Streptococcus pneumoniae (6) Hbzqd-xp-dtwhaht kidney injury Current Visit: Yes Status: Acute Assessment and plan: Will continue hydration and follow up his renal function. Creatinine trended down but still not reach baseline. Qualifiers: Acute renal failure type: unspecified Chronic kidney disease stage: stage 2 (mild) Qualified Code(s): N17.9 - Acute kidney failure, unspecified; N18.2 - Chronic kidney disease, stage 2 (mild) (7) Elevated liver enzymes Current Visit: Yes Status: Acute Assessment and plan: Probably due to sepsis/aspirin overdose. However, need to rule out liver disease. US liver and hepatitis panel unremarkable. Follow-up liver function shows still high AST/ALT level, cont close monitoring. (8) Metabolic acidosis Current Visit: Yes Status: Acute Assessment and plan: Probably due to aspirin overdose. Improved after treatment. Still on sodium bicarbonate by mouth. (9) Aspirin overdose Current Visit: Yes Status: Acute Assessment and plan: Patient said he take a lot of aspirin to control the pain. In [place] [facility], his salicylate level was 56.5, get down to normal now. Metabolic acidosis has improved. Still has elevated AST and ALT, will continue follow up liver function. Qualifiers: Encounter type: initial encounter Injury intent: accidental or unintentional Qualified Code(s): T39.011A - Poisoning by aspirin, accidental ( unintentional), initial encounter - Time Spent With Patient Greater than 35 minutes - Subjective Interval history: Patient is a 55-year-old male admitted for foot gangrene after step on nails. Past medical history is significant for diabetes, COPD, CKD, hypertension. I saw and examined the patient today. Patient is more awake, alert today. Oriented x 3. No cough or SOB. Vitals stable, metabolic acidosis has improved, on bicarbonate pills. Continue IV antibiotics for pneumonia and foot infection. Vascular consult appreciated. Plan for angiogram tomorrow. - Constitutional Vitals: Temp Pulse Resp BP Pulse Ox 98.4 F 101 18 153/75 96 09/20/16 16:03 09/20/16 16:03 09/20/16 16:03 09/20/16 16:03 09/20/16 16:03 General appearance: Present: mild distress, A&O X 3, no acute distress, answers questions appropriately - Head Head exam: Present: atraumatic, normocephalic - Eye Eye exam: Present: PERRL, conjuntiva pink, sclera anicteric Pupils: Present: PERRL - Neck Neck exam general surgery: Present: supple, trachea midline. Absent: lymphadenopathy - Respiratory Respiratory exam: Present: CTAB. Absent: accessory muscle use, rales, rhonchi, wheezes - Cardiovascular Cardiovascular exam: Present: RRR, +S1, +S2. Absent: diastolic murmur, gallop, rubs, systolic murmur - GI/Abdominal GI/Abdominal exam: Present: normal bowel sounds, soft, no peritoneal signs. Absent: distended, tenderness - Extremities Exam Extremities exam: Present: warm, radial pulses palpable and symetrical. Absent : calf tenderness, cyanotic, pedal edema Additional comments: Left foot injury/infection, well dressed. - Neurological Exam Neurological exam: Present: CN II-XII intact, oriented X3, no focal deficits. Absent: pronater drift, facial droop, speech deficit - Skin Skin exam: Present: dry, intact Internal Medicine: Result - Labs CBC & Chem 7: 09/20/16 04:07 09/20/16 04:07 Labs: Short CBC 09/20/16 Range/Units 04:07 WBC 14.3 H (4.3-11.1) K/mcL Hgb 7.3 L (12.9-16.9) g/dL Hct 22.3 L (37.5-50.1) % Plt Count 347 (140-400) K/mcL Neutrophils # 10.6 H (1.6-8.9) K/mcL BMP 09/20/16 04:07 Sodium 134 L Potassium 4.1 Chloride 105 Carbon Dioxide 21 BUN 25 D Creatinine 1.51 H Glucose 293 H Calcium 7.6 L Liver Function 09/20/16 Range/Units 04:07 Total Bilirubin 0.3 (0.2-1.2) mg/dL AST 231 H (5-34) Units/L ALT 113 H (0-55) Units/L Alkaline Phosphatase 279 H (38-126) Units/L Albumin 2.0 L (3.5-5.0) g/dL - ABG Interpretation ABG results: ABG ABG pH 7.40 pH Units (7.32-7.45) 09/18/16 12:30 ABG pCO2 23 mmHg (35-45) L 09/18/16 12:30 ABG pO2 129 mmHg (85-104) H 09/18/16 12:30 ABG O2 Saturation 99 % (95-98) H 09/18/16 12:30 - Impressions Impressions Abdomen Ultrasound 09/20/16 11:00 IMPRESSION: 1. The common bile duct is just above the upper limits of normal in diameter. No gallstones, gallbladder wall thickening or intrahepatic biliary dilation identified. MRCP could be considered for further evaluation if clinically warranted. 2. Slightly heterogeneous echotexture of the liver is nonspecific. This could be further evaluated by liver MRI if clinically warranted. 3. Incidental hemangioma in the left hepatic lobe. 4. Incidental small right-sided pleural effusion. D/ / Abel Garcia MD / Abel Garcia MD Interpreting Provider: Abel Garcia MD Consult Discharge Plan - Plan Referrals: Mara Kiser, PALLET REPAIRER [Primary Care Provider] -
[2016-09-20] MEDS ORDERED: Insulin LISPRO 300 UNITS/3 ML VIAL SQ SCH (21:00)
[2016-09-20] MEDS ORDERED: Insulin DETEMIR 100 UNIT/ML X5UNITS SQ SCH ×2 (21:00)
[2016-09-21] MEDS: Ipratropium/Albuterol Neb 3 ML IH SCH ×5 (03:48→20:18)
[2016-09-21] MEDS: *HR* OxyCODONE/APAP 5/325 TABLET PO PRN ×2 (04:45→12:06)
[2016-09-21] MEDS: *HR* Enoxaparin 40 MG/0.4 ML SYRINGE SQ SCH (04:45)
[2016-09-21 06:13] LABS: Basophils % 0.2 %; Eosinophils # 0.2 K/mcL (0.0-0.6); Eosinophils % 1.4 %; Hematocrit 21.3 % (37.5-50.1); Hemoglobin 6.9 g/dL (12.9-16.9); Immature Granulocytes % 2.1 % (0-4); Lymphocytes # 1.1 K/mcL (0.6-4.6); Lymphocytes % 8.9 %; Mean Corpuscular HGB Conc 32.4 g/dL (31.6-35.5); Mean Corpuscular Hemoglobin 32.5 pg (28.0-33.3); Mean Corpuscular Volume 100.5 fL (83.0-100.0); Mean Platelet Volume 8.5 fL (9.4-12.4); Monocytes # 1.4 K/mcL (0.0-1.3); Neutrophils # 9.4 K/mcL (1.6-8.9); Platelet Count 421 K/mcL (140-400); Red Blood Count 2.12 M/mcL (4.19-5.50); Red Cell Distribution Width 13.7 % (11.5-14.5); Segmented Neutrophils % 76.4 %
[2016-09-21 06:35] LABS: Alanine Aminotransferase 110 Units/L (0-55); Albumin/Globulin Ratio 0.5 (1.1-2.2); Alkaline Phosphatase 319 Units/L (38-126); Aspartate Amino Transferase 151 Units/L (5-34); BUN/Creatinine Ratio 15 (6-26); Bilirubin,Total 0.4 mg/dL (0.2-1.2); Blood Urea Nitrogen 19 mg/dL (8-26); Calcium 8.1 mg/dL (8.6-10.8); Carbon Dioxide 23 mEq/L (19-29); Chloride 105 mEq/L (98-109); Globulin 3.8 g/dL (2.4-3.5); Glucose 323 mg/dL (70-99); Osmolality,Calculated 293 (280-300); Potassium 3.7 mEq/L (3.5-4.5); Sodium 134 mEq/L (136-145); Total Protein 5.8 g/dL (6.0-8.3); eGFR For African Americans > 60 (> 60); eGFR For Non-African Americans > 60 (> 60)
[2016-09-21] MEDS ORDERED: Vancomycin 750 MG in D5% in Water 250 ML IVPB SCH ×2 (08:00→21:00)
[2016-09-21 08:42] LABS: INR 1.3; Prothrombin Time 14.2 Seconds (9.4-12.1)
[2016-09-21 08:45] LABS: Activated Partial Thrombo Time 33.1 Seconds (26.0-36.0)
[2016-09-21] MEDS: Lactobacillus 1 EACH CAP.SPRINK PO SCH (08:50)
[2016-09-21] MEDS: FLUoxetine 20 MG CAPSULE PO SCH (08:50)
[2016-09-21] MEDS: *HR* HYDROcodone/Acet 5/325 mg TABLET PO PRN (08:50)
[2016-09-21] MEDS: Pantoprazole 40 MG VIAL IVP SCH (08:51)
[2016-09-21] MEDS: Insulin LISPRO 300 UNITS/3 ML VIAL SQ SCH ×3 (09:00→16:26)
[2016-09-21] MEDS: Clindamycin 600 MG/50 ML 600 MG/50 ML IV.SOLN IVPB SCH (09:43)
[2016-09-21] MEDS: Piperacillin/Tazobactam 3.375 GM in D5% in Water (Mini-Bag+) 100 ML IVPB SCH ×3 (09:44→23:20)
[2016-09-21] MEDS: 0.9 % Sodium Chloride 1,000 ML IVC SCH (09:45)
--- NOTE | 2016-09-21 09:48 | Internal Med Progress Note ---
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 but it can be d/c later Consulted ID for further abx management d/c Clindamycin Does need amputation of Left 4th, 5th and MTP joints too will talk to molding press operator about further plan of care Scheduled for angiogram today (3) Salicylate causing adverse effect in therapeutic use Current Visit: No Status: Acute Assessment and plan: resolved..no signs of overdose Qualifiers: Encounter type: initial encounter Qualified Code(s): T39.095A - Adverse effect of salicylates, initial encounter (4) PAD (peripheral artery disease) Current Visit: Yes Status: Acute Assessment and plan: scheduled for angiogram today vascular surgery on board Since pt is going for angiogram - started him on Acetylcystine 600mg BID x 2 days due to his ANAI Nephro consulted (5) Acute kidney failure Current Visit: Yes Status: Acute Assessment and plan: Improving cont IV hdyration Since pt is going for angiogram - started him on Acetylcystine 600mg BID x 2 days Nephro consulted Qualifiers: Qualified Code(s): N17.9 - Acute kidney failure, unspecified (6) Diabetes mellitus, insulin dependent (IDDM), controlled Current Visit: Yes Status: Acute Assessment and plan: on ISS + Levemir HbA1C 8.5 BS still not well controlled Inc ISS to large and Inc Levemir to 20 U QHS (7) Elevated liver enzymes Current Visit: Yes Status: Acute Assessment and plan: Mostly due to sepsis + chronic alcohol dependence Reviewed U/S of Liver No acute concerns.. can have MRI of Liver as an out pt once current problems stabilizes his LFT's trending down Cont monitoring avoid hepatotoxic meds (8) Alcohol dependence Current Visit: Yes Status: Acute Assessment and plan: counseled to quit had last alcohol a week ago no signs of withdrawl cont close monitoring Qualifiers: Qualified Code(s): F10.20 - Alcohol dependence, uncomplicated (9) COPD (chronic obstructive pulmonary disease) Current Visit: Yes Status: Chronic Assessment and plan: Not in exacerbation cont home regimen Qualifiers: COPD type: unspecified COPD Qualified Code(s): J44.9 - Chronic obstructive pulmonary disease, unspecified (10) Hypertension Current Visit: No Status: Chronic Assessment and plan: Continue home medications. BP is stable Qualifiers: Hypertension type: essential hypertension Qualified Code(s): I10 - Essential (primary) hypertension (11) Tobacco dependence Current Visit: Yes Status: Acute Assessment and plan: Counseled to quit smoking placed on nicotine patch (12) DVT prophylaxis Current Visit: Yes Status: Acute Assessment and plan: on Lovenox - Subjective Interval history: This is a 55 y/o M with known PMH of HTN, DM2, COPD, Chronic smoker, chronic alcohol dependent pt who recently admitted at [facility] for left foot gangrene developed after he stepped on a nail. He went back to [place] ER on with worsening Left foot swelling / tenderness and 4th and 5th toe black discoloration. Pt was admitted here for further care. He was seen by molding press operator and performed a debridement, however his left foot cellulutis unchanged. He is still c/o pain, does have swelling and erythema with black discolored left 4th and 5th toe as well as base distal 4th,5th MTP joints - Constitutional Vitals: Temp Pulse Resp BP Pulse Ox 98.2 F 108 18 150/74 93 09/21/16 07:38 09/21/16 07:38 09/21/16 08:09 09/21/16 07:38 09/21/16 08:09 General appearance: Present: A&O X 3, no acute distress, answers questions appropriately - Neck Neck exam general surgery: Present: supple. Absent: tenderness - Respiratory Respiratory exam: Present: decreased breath sounds. Absent: accessory muscle use, rales, rhonchi, wheezes - Cardiovascular Cardiovascular exam: Present: RRR, +S1, +S2. Absent: diastolic murmur, gallop, rubs, systolic murmur - GI/Abdominal GI/Abdominal exam: Present: normal bowel sounds, soft. Absent: distended, rebound, rigid - Extremities Exam Additional comments: swelling and erythema with black discolored left 4th and 5th toe as well as base distal 4th,5th MTP joints. Erythema extending into dorsum of ankle Internal Medicine: Result - Labs CBC & Chem 7: 09/21/16 06:01 09/21/16 06:01 Labs: Short CBC 09/21/16 Range/Units 06:01 WBC 12.3 H (4.3-11.1) K/mcL Hgb 6.9 L (12.9-16.9) g/dL Hct 21.3 L (37.5-50.1) % Plt Count 421 H (140-400) K/mcL Neutrophils # 9.4 H (1.6-8.9) K/mcL BMP 09/21/16 06:01 Sodium 134 L Potassium 3.7 Chloride 105 Carbon Dioxide 23 BUN 19 Creatinine 1.23 Glucose 323 H Calcium 8.1 L Liver Function 09/21/16 Range/Units 06:01 Total Bilirubin 0.4 (0.2-1.2) mg/dL AST 151 H (5-34) Units/L ALT 110 H (0-55) Units/L Alkaline Phosphatase 319 H (38-126) Units/L Albumin 2.0 L (3.5-5.0) g/dL - ABG Interpretation ABG results: ABG ABG pH 7.40 pH Units (7.32-7.45) 09/18/16 12:30 ABG pCO2 23 mmHg (35-45) L 09/18/16 12:30 ABG pO2 129 mmHg (85-104) H 09/18/16 12:30 ABG O2 Saturation 99 % (95-98) H 09/18/16 12:30 PT/INR, D-dimer PT 14.2 Seconds (9.4-12.1) H 09/21/16 07:58 - Impressions Impressions Abdomen Ultrasound 09/20/16 11:00 IMPRESSION: 1. The common bile duct is just above the upper limits of normal in diameter. No gallstones, gallbladder wall thickening or intrahepatic biliary dilation identified. MRCP could be considered for further evaluation if clinically warranted. 2. Slightly heterogeneous echotexture of the liver is nonspecific. This could be further evaluated by liver MRI if clinically warranted. 3. Incidental hemangioma in the left hepatic lobe. 4. Incidental small right-sided pleural effusion. D/ / Abel Garcia MD / Abel Garcia MD Interpreting Provider: Abel Garcia MD Consult Discharge Plan - Plan Referrals: Mara Kiser, VAULT INSTALLER [Primary Care Provider] -
--- NOTE | 2016-09-21 10:30 | Nephrology Consult Note ---
Date of Encounter: 09/21/16 Time of Encounter: 10:25 Assessment and Plan (1) ANAI (acute kidney injury) Current Visit: Yes Status: Acute Acute kidney workup will include: UA, urine culture, urine sodium, urine creatinine, urine eosinophils, CPK, renal ultrasound, serum uric acid levels, protein/creatinine ratio. Mucomyst has already been ordered Continue IV fluids .9 NS Vanco must be dosed by pharmacy (2) Gangrene of left foot Current Visit: Yes Status: Acute per podiatry team (3) PAD (peripheral artery disease) Current Visit: Yes Status: Acute per primary team History of Present Illness - Reason for Consult Consult date: 09/21/16 - Chief Complaint ANAI, sepsis affecting skin, gangrene left foot - History of Present Illness Mr. Alonso is a 55 year old male with hx of DMII on insulin, PAD, COPD who presents with worsening Left foot gangrene. It was reported that he stepped on a dirty nail several days ago and was treated with outpatient clindamycin but represents due to failure of therapy. Imaging in the ER suggested gas changes in soft tissue. Was also noted to be toxic and hypotensive. No cx sent prior to antibiotics. Reported hx of drug use or alcohol. Kidney function on admission showed Scr 1.77 and GFR of 40. Today kidney function is WNL. Patient denies any history of kidney problems other than kidney stones; denies any family history of kidney problems; denies frequent use of NSAIDs and has never seen a collection technician. Patient is scheduled today for an angiogram and nephrology has been consulted to manage kidney function since patient will be given contrast. Past Med Surg Social Fam HX - Past Medical History Medical history: COPD, diabetes, hypertension, other Psychiatric history: no psych history - Past Surgical History Surgical History: no surgical history - Social History Smoking Status: Current every day smoker Smokeless Tobacco Status: No (UNKNOWN) Alcohol use: occasionally Drug use: opiates, marijuana Medications and Allergies Insulin Aspart Prot/Insuln Asp [Novolog Mix 70-30 Flexpen Syrn] 0 unit SQ BID # 0 10/27/15 [History] Metoprolol [Lopressor] 50 mg PO DAILY 10/27/15 [History] Ranitidine HCl [Zantac] 150 mg PO BID PRN 08/31/16 [History] Amlodipine Besylate 10 mg PO DAILY #30 tablet 09/09/16 [Rx] Doxazosin [Cardura] 4 mg PO HS #30 tablet 09/09/16 [Rx] Magnesium Oxide [Mag-Ox] 400 mg PO BID #14 tablet 09/09/16 [Rx] Ibuprofen 800 mg PO TID PRN #15 tablet 09/16/16 [Rx] Aspirin [Ecotrin] 325 mg PO DAILY 09/17/16 [History] FLUoxetine HCl [PROzac] 20 mg PO DAILY 09/17/16 [History] Lisinopril [Zestril] 20 mg PO DAILY 09/17/16 [History] Multivit-Min/Iron Fum/Folic AC [Mztjr-Vkncvox-Swxqdjve Tablet] 1 tab PO DAILY [History] Allergies No Known Allergies Allergy (Verified 10/27/15 15:30) Review of Systems All Systems: reviewed and no additional remarkable complaints except as stated Constitutional: fever(s) Cardiovascular: no chest pain, no dyspnea, no edema Respiratory: wheezing, no dyspnea Gastrointestinal: no diarrhea, no nausea Integumentary: skin ulcer (left foot-in dressing), wounds (left foot, in dressing) Neurological: no confusion Exam - Vital Signs Vital signs: Initial Vital Signs Temp Pulse Resp BP Pulse Ox 98.2 F 95 38 76/50 100 09/17/16 17:58 09/17/16 17:58 09/17/16 17:58 09/17/16 17:58 09/17/16 17:58 Vital Signs - Last 8 Hours Temp Pulse Resp BP Pulse Ox 09/21/16 08:09 18 93 09/21/16 07:38 98.2 F 108 18 150/74 91 09/21/16 04:07 99.2 F 115 18 145/80 91 09/21/16 03:48 18 95 Intake and Output 09/20/16 09/21/16 09/21/16 23:59 07:59 15:59 Intake Total 1270 / 1270 150 / 150 1000 / 1000 Output Total 300 / 300 460 / 460 Balance 970 / 970 -310 / -310 1000 / 1000 Intake: IV Fluids 1150 / 1150 150 / 150 1000 / 1000 0.9 % Sodium Chloride 1, 1000 / 1000 1000 / 1000 000 ML @ 90 mls/hr IVC . [id number] [facility] Rx#:[id number] Cleocin Premix 600 MG/50 50 / 50 50 / 50 ML 600 mg In 50 ml @ 50 mls/hr IVPB Q8HR [facility] Rx#: [id number] Zosyn 3.375 GM In 100 / 100 100 / 100 Dextrose 5% (Minibag+) 100 ML 100 ML @ 25 mls/hr IVPB Q8HR [facility] Rx#: [id number] Oral 120 / 120 Output: Urine 300 / 300 460 / 460 Other: Meal Dinner Percent of Meal Consumed 80% Weight 66 kg Blood Glucose* 310 285 Patient Weight 09/21/16 23:59 Weight 66 kg - General Appearance General appearance: well-developed, well-nourished EENT: ATNC, mucous membranes moist, hearing intact, vision intact Neck: supple Respiratory: wheezing (LESLI) Cardiology: no edema, normal S1, normal S2 Gastrointestinal: no tenderness, no guarding Integumentary: warm and dry Neurologic: alert and oriented x3 Psychiatric: mood/affect appropriate, cooperative Results - Lab Results 09/21/16 06:01 09/21/16 06:01 Most recent lab results ABG pH 7.40 pH Units (7.32-7.45) 09/18/16 12:30 ABG pCO2 23 mmHg (35-45) L 09/18/16 12:30 ABG pO2 129 mmHg (85-104) H 09/18/16 12:30 ABG HCO3 14.2 mEQ/L (21-27) L 09/18/16 12:30 ABG O2 Saturation 99 % (95-98) H 09/18/16 12:30 Calcium 8.1 mg/dL (8.6-10.8) L 09/21/16 06:01 Phosphorus 2.3 mg/dL (2.3-4.7) 09/19/16 01:16 Magnesium 1.9 mg/dL (1.6-2.6) 09/19/16 01:16 Consult Discharge Plan - Plan Referrals: Mara Kiser, CORN COOKER [Primary Care Provider] -
[2016-09-21 11:01] LABS: Uric Acid 4.2 mg/dL (3.5-7.2)
[2016-09-21] MEDS: *HR* Acetylcysteine 20% 600 MG/3 ML ORAL SYRINGE PO SCH ×2 (12:04→21:54)
[2016-09-21 12:27] LABS: Creatine Kinase 3773 Units/L (30-200)
--- NOTE | 2016-09-21 13:10 | Infectious Disease Consult ---
Date of Encounter: 09/21/16 Time of Encounter: 13:01 Assessment and Plan (1) Sepsis Status: Resolved Assessment and plan: Severe sepsis: The patient had two SIRS criteria plus abnormal LFTs and ANAI on admission. Likely secondary to left foot infection. Improved. WBC remains elevated, but trending down. He continues to have tachycardia. He has remained afebrile. LFTs and ANAI are improving. Blood cultures drawn 09/17/16 are NGTD x 2 sets. Qualifiers: Sepsis type: sepsis due to unspecified organism Qualified Code(s): A41.9 - Sepsis, unspecified organism (2) Left foot infection Status: Acute Assessment and plan: Location: Left lateral foot at level of 5th MTP joint. Causative organism: Citrobacter freundii, Proteus vulgaris, and Serratia rubidaea. Concern for anaerobes as well due to soft tissue gas. Likely secondary to previous nail puncture wound. Podiatry consulted and following. Status post bedside bedridement by Dr. Shabazz. Wound probes to bone, but no evidence of necrotizing fasciitis. Recommends holding off on further surgical intervention until arterial workup complete. Wound cultures obtained by podiatry during debridement. No inflammatory markers have been checked. Given that the wound probes to bone, will need to treat as osteomyelitis. Check ESR and CRP. will continue vanc and zosyn for now, consider switching to IV levaquin and flagyl if all cultures are final Duration of treatment depends on the clinical picture. Monitor renal function and dose-adjust antibiotics. (3) Gangrene of left foot Status: Acute Assessment and plan: Etiology unclear: infectious vs. ischemia. Podiatry consulted and following. Status post bedside bedridement by Dr. Shabazz. Wound probes to bone, but no evidence of necrotizing fasciitis. Recommends holding off on further surgical intervention until arterial workup complete. ABIs show moderate bilateral occlusive disease. Vascular surgery consulted and planning to perform angiogram later today. Wound cultures obtained by podiatry during debridement. No inflammatory markers have been checked. Given that the wound probes to bone, will need to treat as osteomyelitis. Wound care and activity restrictions per the podiatry team. Antibiotics as recommended above. (4) Cellulitis Status: Acute Assessment and plan: Location: Left foot. Causative organism likely P. vulgaris, Citrobacter freundii, and Serratia rubidaea. Likely secondary to left foot puncture wound. X-ray of the left foot shows persistent soft tissue gas, but no osteomyelitis. Continue antibiotics as above. Qualifiers: Site of cellulitis: extremity Site of cellulitis of extremity: lower extremity Laterality: left Qualified Code(s): L03.116 - Cellulitis of left lower limb (5) Pneumonia Status: Acute Assessment and plan: Location: Right lower lobe. Causative organism unclear. Given recent AMS and patient's ETOH use, concern for aspiration. Continue Zosyn as above. Continue Vancomycin IV. Pharmacy to dose. Goal trough approximately 15. Duration of treatment depends on the clinical picture. Monitor renal function and for drug toxicity and dose-adjust antibiotics. Qualifiers: Pneumonia type: due to unspecified organism Laterality: right Lung location: unspecified part of lung Qualified Code(s): J18.9 - Pneumonia, unspecified organism (6) ANAI (acute kidney injury) Status: Acute Assessment and plan: Likely secondary to sepsis. Improved. Continue to trend. Nephrology consulted and following. Avoid nephrotoxins as able and dose-adjust antibiotics. (7) PAD (peripheral artery disease) Status: Acute Assessment and plan: ABIs revealed bilateral moderate occlusive disease. Vascular surgery consulted. Plan for angiogram later today. (8) Aspirin overdose Status: Acute Assessment and plan: Unintentional. Management per the primary team. Qualifiers: Encounter type: initial encounter Injury intent: accidental or unintentional Qualified Code(s): T39.011A - Poisoning by aspirin, accidental ( unintentional), initial encounter (9) Alcohol dependence Status: Chronic Assessment and plan: Patient reports drinking 4-6 beers per day. Continue CIWA per primary team's recommendations. Qualifiers: Substance use status: uncomplicated Qualified Code(s): F10.20 - Alcohol dependence, uncomplicated (10) Tobacco dependence Status: Chronic (11) COPD (chronic obstructive pulmonary disease) Status: Chronic Qualifiers: COPD type: unspecified COPD Qualified Code(s): J44.9 - Chronic obstructive pulmonary disease, unspecified (12) Diabetes mellitus, insulin dependent (IDDM), controlled Status: Acute Assessment and plan: Check HgbA1C. Recommend aggressive glucose monitoring and control to promote wound healing and prevent re-infection. Infectious Disease HPI - Data of Consult Patient: new to practice Consult date: 09/21/16 Requesting Physician: Laura Wright MD Primary Care Provider: Mara S Rashel, [employer] - Consult Narrative Reason for consult: Left foot gangrene History of present illness: Mr. Alonso is a 55 year old male past medical history of COPD, diabetes, and hypertension. The patient was admitted to the hospital September 17 for nonhealing wound to the left foot. We are consulted September 21 for further evaluation and treatment recommendations regarding left foot infection. The patient is a 55-year-old male with past medical history as stated above. The patient appears to be somewhat of a poor historian, therefore, most of the information is obtained from the medical record. Apparently, the patient stepped on a nail about a month ago and remove the nail himself. He failed to seek treatment until about 7 days later when he was seen in the emergency department at [facility]. An x-ray showed soft tissue gas at the lateral aspect of the fifth MTP joint. He was discharged home to complete a ten-day course of Augmentin and clindamycin. The patient reports presented to the emergency department on September 06 due to continued pain and worsening of the foot that included a superficial blister turning black on the lateral aspect of his foot. He received a couple days of IV antibiotics and was again discharged on oral Augmentin and clindamycin to complete an additional 10 days. On September 16, the patient went back to the ER seems still having pain. It was noted that the foot looked better and the patient was discharged back home. The patient went back to the emergency department again on September 17 and was noted to have developed necrosis and eschar of the wound. The patient reported taking a large amount of aspirin at home to help control his pain. Upon arrival, the patient was afebrile , but he was tachycardic. Laboratory studies revealed leukocytosis with neutrophilic predominance and in acute kidney injury. Additionally, the patient' s salicylate level was 56.5 and his LFTs were elevated. He was started on empiric IV antibiotics. A chest x-ray was negative. A left foot x-ray again revealed persistent soft tissue gas, but no osteomyelitis. Patient was subsequently transferred here to the [facility] for further evaluation. Since admission, podiatry has been consulted and completed a bedside debridement that revealed an ulcer that probes to the bone. Wound cultures were obtained that grew Citrobacter, Proteus, and Serratia. Based on the clinical picture, there is concern that the patient is ischemic rather than infectious and vascular surgery has been consulted. ABIs were completed that revealed moderate occlusive disease. The vascular surgery team plans on taking the patient for angiogram later today. Further surgical intervention has been put on hold by the podiatry team until vascular studies are complete. Since admission, the patient has remained hemodynamically stable. His white blood cell count remains elevated, but is improved. His LFTs are starting to trend down. A repeat chest x-ray completed September 18 is airspace opacity in the right lung suspicious for pneumonia. Due to the elevated LFTs, an abdominal ultrasound was completed that showed a common bile duct just above the upper limits of normal as well as a left hepatic lobe hemangioma in her right pleural effusion. The patient's acute kidney injury continues to improve. Nephrology has been consulted and is following that. Currently, the patient is on IV vancomycin and IV Zosyn. We've been asked to evaluate and make further recommendations. During my exam today, the patient endorses a history as stated above. He denies any fevers or chills or rigors. He denies any headache or neck pain. He denies any weakness or dizziness. He denies any congestion, earache, or sore throat. He denies chest pain, shortness of breath, or cough. He denies any nausea, vomiting, diarrhea, or constipation. He denies any abdominal pain and states appetite is okay. He complains of pain in the left foot and leg, but states the leg pain is improved since admission. He states that he noticed that the 2 toes on his left foot started to turn black the day prior to coming to the hospital. He denies any drainage or known foul odor. He states he had had some redness streaking up the leg as well. He denies any oral thrush or any other skin lesions. CC: Laura Wright MD Past Med Surg Social Fam HX - Past Medical History Attestation: Yes The following information was validated with the patient. Source: patient, old records reviewed, nursing notes reviewed Medical history: COPD, diabetes, hypertension, other Psychiatric history: no psych history - Past Surgical History Surgical History: no surgical history - Social History Smoking Status: Current every day smoker Packs per day: 1 Smokeless Tobacco Status: No (UNKNOWN) Alcohol use: heavy (4-6 beers/day) Drug use: opiates, marijuana Occupational status: unemployed Current living situation: Home - Independent Activity Level: Independent ambulation Recent Out of Country Travel Within the Last 8 Weeks: No Exposure or Possible Exposure to Illness During Travel: No Infectious Disease-CN:Meds Insulin Aspart Prot/Insuln Asp [Novolog Mix 70-30 Flexpen Syrn] 0 unit SQ BID # 0 10/27/15 [History] Metoprolol [Lopressor] 50 mg PO DAILY 10/27/15 [History] Ranitidine HCl [Zantac] 150 mg PO BID PRN 08/31/16 [History] Amlodipine Besylate 10 mg PO DAILY #30 tablet 09/09/16 [Rx] Doxazosin [Cardura] 4 mg PO HS #30 tablet 09/09/16 [Rx] Magnesium Oxide [Mag-Ox] 400 mg PO BID #14 tablet 09/09/16 [Rx] Ibuprofen 800 mg PO TID PRN #15 tablet 09/16/16 [Rx] Aspirin [Ecotrin] 325 mg PO DAILY 09/17/16 [History] FLUoxetine HCl [PROzac] 20 mg PO DAILY 09/17/16 [History] Lisinopril [Zestril] 20 mg PO DAILY 09/17/16 [History] Multivit-Min/Iron Fum/Folic AC [Cizxe-Waxjcgy-Cnptdijv Tablet] 1 tab PO DAILY [History] Allergies No Known Allergies Allergy (Verified 10/27/15 15:30) All systems: reviewed and no additional remarkable complaints except as stated Exam - Constitutional Vitals: Temp Pulse Resp BP Pulse Ox 97.9 F 105 20 145/71 96 09/21/16 12:33 09/21/16 12:33 09/21/16 12:33 09/21/16 12:33 09/21/16 12:33 General appearance: average body habitus, cooperative, no acute distress - Head Head exam: Present: atraumatic, normal inspection, normocephalic - Eye Eye exam: Present: EOMI, normal appearance, PERRL Pupils: Present: normal accommodation - ENT ENT exam: Present: mucous membranes moist - Neck Neck exam: Present: normal inspection - Respiratory Respiratory exam: Present: wheezes (fine expiratory wheezes throughout). Absent : rales, respiratory distress, rhonchi, tachypnea - Cardiovascular Cardiovascular exam: Present: +S1, +S2, tachycardia. Absent: irregular rhythm - GI/Abdominal GI/Abdominal exam: Present: normal bowel sounds, soft. Absent: distended, tenderness - Extremities Exam Extremities exam: Present: tenderness (Left foot). Absent: joint swelling, pedal edema Additional comments: Left foot edematous, erythema to the dorsal aspect with necrotic lesion to the lateral and plantar aspects. No drainage. Wound bed dry and necrotic. 4th and 5th toes are ischemic. - Back Exam Back exam: Present: normal inspection. Absent: paraspinal tenderness, vertebral tenderness - Neurological Exam Neurological exam: Present: alert, oriented X3, no focal deficits - Psychiatric Psychiatric exam: Present: normal affect, normal mood - Skin Skin exam: Present: dry, intact, normal color, warm Infectious Disease CN: Results - Labs CBC & Chem 7: 09/21/16 06:01 09/21/16 06:01 Cultures: Cultures 09/17/16 22:47 Anaerobic Culture - Preliminary Left Foot At this time, no anaerobic growth is present. The culture will be finalized after 5 days of incubation. 09/17/16 22:47 Wound Culture - Final Left Foot Proteus vulgaris Citrobacter freundii complex Serratia rubidaea 09/17/16 20:52 Blood Culture - Preliminary Peripheral Venipuncture No growth. 09/17/16 20:59 Blood Culture - Preliminary Peripheral Venipuncture No growth. Serology: Serology 09/20/16 Range/Units 04:07 Hepatitis A IgM Ab Nonreactive (Nonreactive) Hep Bs Antigen Nonreactive (Nonreactive) Hep B Core IgM Ab Nonreactive (Nonreactive) Hepatitis C Ab Screen Nonreactive (Nonreactive) Consult Discharge Plan - Plan Referrals: Mara Kiser CNP [Primary Care Provider] - 10/04/16 4:00 pm - Attending Attestation I examined this patient and my medical decision-making was reviewed with the Resident Physician. I agree with the documented findings, disposition and treatment plan as described except to the extent set forth below. This is an addendum to original report dictated by Debra Rob CNP. Please refer to Kathrin man for full day tells. Next Patient is a 55-year-old gentleman admitted to the hospital for nonhealing wound of the left foot and we are consulted for what appears to be left foot gangrene with necrosis. Patient was evaluated by Dr. lyon from podiatry and it seems like the infection is tracking all the way down to the bone with bone involvement. Patient cultures were obtained and are positive so far for Citrobacter, Proteus and Serratia. Keep in mind the patient has been on Augmentin and clindamycin all this time. Patient was also evaluated by Dr. Casey and taken down for angiogram. We were asked to evaluate the patient and make further recommendations. At this point patient will need broad-spectrum antibiotic (vanc and zosy for now ) consider switching to levaquin/flagyl if no signs of MRSA. There was some error on the x-ray but patient did have a puncture wound still not sure if that was introduced or there is some anaerobic activity. Either way we will wait for anaerobic cultures to finalize. We will wait to see what Dr. Casey finds on the angiogram. Monitor kidney function very closely since the patients CK with very elevated and keep the patient well hydrated. If patient does not improve I might have to also cover for MRSA but for now we will just observe.
[2016-09-21] MEDS: *HR* Dextrose 50 % in Water (Syg) 50 ML SYRINGE IVP PRN ×3 (15:20→17:05)
[2016-09-21] MEDS: D5% in Water 1,000 ML IVC PRN (15:47)
[2016-09-21] MEDS ORDERED: Insulin LISPRO 300 UNITS/3 ML VIAL SQ SCH ×3 (16:30→21:00)
[2016-09-21] MEDS ORDERED: *HR* Heparin 10,000 UNIT/10 ML VIAL ONE (17:04)
[2016-09-21] MEDS ORDERED: Heparin 1,000 UNITS/500 mL NS 500 ML ONE (17:04)
[2016-09-21] MEDS ORDERED: 0.9 % Sodium Chloride 1,000 ML ONE ×2 (17:04→18:12)
--- NOTE | 2016-09-21 17:45 | Pre-Sedation Evaluation ---
Pre-sedation evaluation - Pre-sedation checklist Date of procedure: 09/21/16 Procedure: angiogram Recent Vitals: Last Vital Signs Temp 97.4 F L 09/21/16 16:05 Pulse 87 09/21/16 16:05 Resp 18 09/21/16 16:05 BP 162/81 09/21/16 16:05 Pulse Ox 97 09/21/16 16:05 H&P (including ROS) documented in medical record: Yes Dietary Status: NPO after Midnight Dentition: poor dentition Possible difficult airway: No ASA Classification *see protocol: CLASS III-Severe systemic disease Plan of Care: Pt appropriate candidate for procedure/moderate/conscious sedation , Risks/benefits of procedure/sedation discussed w/ patient/family
[2016-09-21] MEDS ORDERED: *HR* FentaNYL (PF) 100 MCG/2 ML VIAL ONE (18:11)
[2016-09-21] MEDS ORDERED: *HR* Midazolam HCl 2 MG/2 ML VIAL ONE (18:37)
--- NOTE | 2016-09-21 19:45 | Invasive Diagnostic Lab Proc ---
Name: Isaac Alonso Date of Study: 09/21/2016 Date: 1960 Ht: 163.1 in Medical Record#: [id number] Age: 55 Wt: 65.27280 lb Gender: Male BSA: 1.71 Order #: [id number] BMI: 24.77 Physicians Performing MD: Cali Casey MD, FACS Referring MD: Referring MD: Staff Name Position Time In Sites, Rosalinda RT (R) Monitor Bean Love RT (R) Scrub Catarina Ryan RN Youth Leader Indications Non-healing Ulcer Procedures Performed AORTOGRAPHY, ABDOMINAL S&I AORTOGRAPHY EXT Bilat S&I FEM/POPL REVAS W/TLA TIB/PER REVASC W/TLA Pre-Procedure Checklist Informed consent is complete signed and on chart. H&P is on chart. ID band is on and ID verified with patient. Patient NPO for procedure The procedure was described for the patient and questions were answered. Blood Pressure: 174/102 ECG is on chart. Rhythm: NSR Plan of Care Patient will tolerate the procedure without complications. Adequate level of comfort will be maintained. Hemodynamics will remain stable Patient will recover from procedure without complications. Respiratory function will be maintained. Cardiac rhythm will remain stable. Patient temperature will be maintained. Patient and/or family have verbalized understanding of the procedure. Patient Education Chief Complaint/Reason for Test: Peripheral angiogram Developmental Category: Adult (18-64 years) Learning Barriers: None Education Needs: Procedure Education Method: Verbal Information Taught: Peripheral angiogram Educational Evaluation: Able to repeat information Intravenous Access Time IV Size Location DC'd Fluid/Drip Rate Units RN 20g 1 1/" Patent On Arrival Lt Hand Packed RBC's infusing Catarina Ryan RN 18g 1 1/" Patent On Arrival Rt Antecubital 0.9NaCl 25 ml/hr Catarina Ryan RN Allergies No Known Allergies Vital Signs Time BP Systolic BP Diastolic HR O2 Sats ASA 06:16 PM 06:16 PM 06:32 PM 06:47 PM 07:02 PM 06:16 PM 174 102 83 95 06:20 PM 158 101 82 95 06:25 PM 164 105 84 95 06:30 PM 160 102 82 95 06:35 PM 162 96 84 95 06:40 PM 174 99 86 95 06:46 PM 176 102 88 94 06:50 PM 178 103 89 94 06:56 PM 175 104 91 93 07:01 PM 197 108 92 94 07:06 PM 174 108 90 93 07:10 PM 185 104 91 94 07:16 PM 189 102 93 94 07:21 PM 180 107 95 93 07:26 PM 176 103 94 92 07:18 PM Procedure Medications Time Medication Dose Units Method Route 05:52 PM Oxygen 2 L/min nasal cannula 06:16 PM Fentanyl 50 mcg Intravenous 06:18 PM Lidocaine 2% 10 ml Subcutaneous 06:37 PM Versed 1 mg Intravenous 06:41 PM Fentanyl 50 mcg Intravenous 06:43 PM Heparin 4000 units Intravenous 06:43 PM 0.9NaCl 25 ml/hr Intravenous 07:12 PM Versed 1 mg Intravenous 07:27 PM Plavix 75 mg Orally ASA Classification: CLASS III- Severe systemic disease (i.e. prior AMI, diabetes with vascular complications, morbid obesity) Marc Score Preprocedure Postprocedure Activity 2- Moves 4 extremities sustained head lift Activity 2- Moves 4 extremities sustained head lift Circulation 2- SBP +/= 20 points of pre-anesthetic level Circulation 2- SBP +/= 20 points of pre-anesthetic level Consciousness 2- Awake and alert oriented x 3 Consciousness 2- Awake and alert oriented x 3 O2 Saturation 2- Able to maintain O2 satruation of 92% on room air O2 Saturation 2- Able to maintain O2 satruation of 92% on room air Respiratory 2- Able to deep breathe and cough well Respiratory 2- Able to deep breathe and cough well Total Score 10 Total Score 10 Contrast: Isovue 300- 150ml Contrast Amount: 98 ml Fluoro Dose: 324 mGy Activated Clotting Time Time Drawn ACT (sec) 07:34 PM 168 Procedure Log Time Note Entered By 05:46 PM Pt arrived to [facility] 1 at 17:46 [email or web address] 05:52 PM Rosalinda Valenzuela RT (R) Position: Monitor Time in: 17:52 tsites 05:52 PM Bean Love RT (R) Position: Scrub Time in: 17:52 tsites 05:52 PM Catarina Ryan RN Position: Youth Leader Time in: 17:52 tsites 05:52 PM Physician paged/called 17:49 tsites 05:52 PM Case delayed: No tsites 05:52 PM 17:52 Oxygen at 2 L/min per nasal cannula by Catarina Ryan RN tsites 05:53 PM Patient charges- Angio tray pack, Pulse Oximetry and ACIST tubing and transducer tsites 05:55 PM Physician paged/called 17:55 tsites 05:58 PM audible wheezes present . respiratory at bedside breathing treatment started tsites 06:01 PM paging center called for Dr. Casey tsites 06:05 PM Physican responded and notified patient is ready 18:05 tsites 06:10 PM Physician arrived 18:10 tsites 06:11 PM Meet and greet completed tsites 06:11 PM Sign in performed according to hospital policy. tsites 06:11 PM Procedure start 18:11 tsites 06:16 PM Hair removed from procedure site in procedure lab using clippers. Bilateral groin prepped with Chloraprep by Nicolas, Rosalinda DAWSON (R), safety strap applied then patient was draped. Skin intact. tsites 06:16 PM 18:16 Fentanyl 50 mcg Intravenous Given by Catarina Ryan RN tsites 06:16 PM Time: 18:16 Is patient comfortable and pain free?: Yes tsites 06:16 PM Time: 18:16LOC: 4 = Oriented but drowsy tsites 06:18 PM Time out perfomed tsites 06:18 PM 18:18 10 ml Lidocaine 2% to right groin Subcutaneous Given By Cali Casey MD, FACS tsites 06:21 PM Access obtained in the right femoral artery by percutaneous puncture. 5 Fr. 10 cm Terumo [place] sheath placed in right femoral artery tsites 06:22 PM 0.035 180cm J-wire wire utilized to assist with catheter placement tsites 06:20 PM venous access abtained wire in place tsites 06:23 PM venous wire pulled . manual pressure held per Dr. Casey tsites 06:23 PM 5Fr Short pigtail catheter inserted over the wire tsites 06:24 PM Isovue 300- 150ml contrast 4 ml given by Cali Casey MD, FACS tsites 06:25 PM Abdominal aorta angiography performed in AP contrast injected 10/25 mls. tsites 06:25 PM repositioning catheter tsites 06:26 PM Setting up for stepping tsites 06:26 PM Abdominal angiogram with runoff completed: 6 ml/sec for a total of 60 mls tsites 06:32 PM Time: 18:16LOC: 4 = Oriented but drowsy tsites 06:32 PM Time: 18:16 Is patient comfortable and pain free?: Yes tsites 06:32 PM Physician reviewing films tsites 06:32 PM wire reinserted catheter removed tsites 06:33 PM 5Fr Omniflush catheter inserted over the wire tsites 06:35 PM Catheter removed tsites 06:35 PM Intervention started at this time tsites 06:35 PM Sheath exchanged for a 6 Fr 45 cm Terumo [place] sheath inserted into right femoral artery tsites 06:36 PM 0.035 Glidewire Angled 260cm guidewire advanced. tsites 06:37 PM 5Fr 100cm Glidecath Angled-Taper guide catheter advanced tsites 06:37 PM 18:37 Versed 1 mg Intravenous Given by Catarina Ryan RN tsites 06:40 PM Isovue 300- 150ml contrast 4 ml given by Cali Casey MD, FACS tsites 06:41 PM 18:41 Fentanyl 50 mcg Intravenous Given by Catarina Ryan RN tsites 06:41 PM Isovue 300- 150ml contrast 4 ml given by Cali Casey MD, FACS tsites 06:43 PM Guide wire removed intact tsites 06:43 PM 18:43 Heparin 4000 units Intravenous by Catarina Ryan RN tsites 06:43 PM 18:43 0.9NaCl 25 ml/hr Intravenous Given by Catarina Ryan RN tsites 06:30 PM blood products finished 164/105 95% 82 HR tsites 06:46 PM 0.018 [place] 14, 18 gram 300cm guidewire advanced. tsites 06:47 PM Time: 18:32 Is patient comfortable and pain free?: Yes tsites 06:47 PM Time: 18:32LOC: 4 = Oriented but drowsy tsites 06:55 PM Inflation device tsites 06:56 PM 2 mm x 220 mm [place] balloon catheter placed into left anterior tibial tsites 06:58 PM Balloon inflated @ 14 leanne for 120 seconds tsites 07:03 PM Balloon removed intact tsites 07:01 PM Guide wire removed intact tsites 07:02 PM 0.014 Journey 300cm guidewire advanced. tsites 07:02 PM Time: 18:47LOC: 4 = Oriented but drowsy tsites 07:02 PM Time: 18:47 Is patient comfortable and pain free?: Yes tsites 07:04 PM 3 mm x 220 mm [place] balloon catheter placed into left anterior tibial tsites 07:06 PM Balloon inflated @ 14 leanne for 120 seconds tsites 07:09 PM Balloon removed intact tsites 07:11 PM Isovue 300- 150ml contrast 4 ml given by Cali Casey MD, FACS tsites 07:11 PM 4 mm x 220 mm [place] balloon catheter placed into left popliteal tsites 07:12 PM 19:12 Versed 1 mg Intravenous Given by Catarina Ryna RN tsites 07:13 PM Balloon inflated @ 12 leanne for 60 seconds tsites 07:15 PM Balloon inflated @ 12 leanne for 60 seconds tsites 07:18 PM Time: 19:02 Is patient comfortable and pain free?: Yes tsites 07:18 PM Time: 19:02LOC: 4 = Oriented but drowsy tsites 07:19 PM Balloon inflated @ 12 leanne for 120 seconds tsites 07:22 PM Balloon inflated @ 12 leanne for 120 seconds tsites 07:26 PM Isovue 300- 150ml contrast 4 ml given by Clai Casey MD, FACS tsites 07:27 PM Isovue 370- 500ml contrast 4 ml given by Cali Casey MD, FACS tsites 07:27 PM Isovue 300- 150ml contrast 4 ml given by Cali Casey MD, FACS tsites 07:28 PM Time: 19:27 Plavix 75 mg Orally Given by Catarina Ryan RN tsites 04:00 PM PVIStat 06:15 PM Vitals capture started with the following parameters, Patient=Adult, Interval=5 min, Initial Vuixmbxz=566 mmHg, Deflation Rate=5 mmHg, Cuff placed on Right Arm 06:15 PM Recorded ECG: HR=82 Condition=Condition 1 06:16 PM HR=83 bpm, PTEH=508/102 mmhg, SpO2=95.0 %, Resp=22 B/min 06:20 PM Pressure channel 2 zeroed. 06:20 PM HR=82 bpm, GBPF=353/101 mmhg, SpO2=95.0 %, Resp=20 B/min 06:24 PM Recorded Pressure: Ao, HR=82, Condition=Condition 1 (Aorta) Ao 169/82/118 06:25 PM HR=84 bpm, DCBY=036/105 mmhg, SpO2=95 %, Resp=17 B/min 06:30 PM HR=82 bpm, MMLN=404/102 mmhg, SpO2=95 %, Resp=20 B/min 06:35 PM HR=84 bpm, GJBB=304/96 mmhg, SpO2=95 %, Resp=21 B/min 06:40 PM HR=86 bpm, OPMM=239/99 mmhg, SpO2=95 %, Resp=22 B/min 06:46 PM HR=88 bpm, NUNF=619/102 mmhg, SpO2=94 %, Resp=19 B/min 06:50 PM HR=89 bpm, DFRS=303/103 mmhg, SpO2=94 %, Resp=20 B/min 06:56 PM HR=91 bpm, LWKC=185/104 mmhg, SpO2=93.0 %, Resp=21 B/min 07:01 PM HR=92 bpm, WCAY=839/108 mmhg, SpO2=94 %, Resp=20 B/min 07:06 PM HR=90 bpm, EUDY=476/108 mmhg, SpO2=93 %, Resp=20 B/min 07:10 PM HR=91 bpm, YFML=774/104 mmhg, SpO2=94 %, Resp=21 B/min 07:16 PM HR=93 bpm, MPCG=227/102 mmhg, SpO2=94 %, Resp=20 B/min 07:21 PM HR=95 bpm, PZNU=308/107 mmhg, SpO2=93 %, Resp=22 B/min 07:26 PM HR=94 bpm, MIEN=516/103 mmhg, SpO2=92 %, Resp=23 B/min 07:29 PM Balloon removed intact tsites 07:29 PM Guide wire removed intact tsites 07:29 PM Procedure completed at 19:29 tsites 07:29 PM Sign Out completed: Radiation Dose 324 mGy Fluoro Time: 10.7 minutes. Isovue 300- 150ml contrast 98 ml given by Cali Casey MD, FACS. Complications: None. Confirmed administered medications:Yes tsites 07:29 PM Isovue 300- 150ml,1 bottle(s) used. tsites 07:29 PM Sheath left in place to be pulled on floor/holding areaV+Pad tsites 07:30 PM Post Blood Pressure: 176/103 tsites 07:30 PM Post EKG: NSR tsites 07:30 PM Information taught: Peripheral angiogram and FACER OPERATOR tsites 07:30 PM Education needs: Procedure, Plan of Care, and Responsibilities of Patient in Care tsites 07:30 PM Learning barriers: None tsites 07:30 PM Education methods: Verbal tsites 07:30 PM Education evaluation: Able to repeat information tsites 07:30 PM Patient pain level 0/10 tsites 07:30 PM Site status No bleeding/hematoma - Rt Groin as reported by Bean Love RT (R) at 19:30 tsites 07:30 PM ACT drawn tsites 07:30 PM Opsite applied tsites 07:30 PM Delay to floor: No tsites 07:30 PM Pt taken to Room# 6 tsites 07:31 PM no family at this time tsites 07:31 PM Patient out of room 19:31 tsites 07:32 PM Report given to gregg JOHNSON. Pt taken to , Room # 6 19:31 tsites 07:33 PM Time: 19:18LOC: 5 = Fully awake and oriented or at pre-proc level tsites 07:33 PM Time: 19:18 Is patient comfortable and pain free?: Yes tsites 07:34 PM ACT: 168 seconds 19:34 tsites 07:36 PM Diagram Region: Lower Extremity Arteries Anatomical Region: LE-Tbt080% occlusion in Right Superficial Femoral Intervention done: 0 (1=yes, 0=no) RACK WASHER lesion tsites 07:37 PM Diagram Region: Lower Extremity Arteries Anatomical Region: LE-Rhn375% occlusion in Mid Left Superficial Femoral Intervention done: 1 (1=yes, 0=no) tsites 07:38 PM Diagram Region: Lower Extremity Arteries Anatomical Region: LE-Art75% Lesion in Left Popliteal Intervention done: 1 (1=yes, 0=no) tsites 07:39 PM Diagram Region: Lower Extremity Arteries Anatomical Region: LE-Ihd420% occlusion in Left Post. Tibial Intervention done: 0 (1=yes, 0=no) tsites 07:39 PM Diagram Region: Lower Extremity Arteries Anatomical Region: LE-Pvy239% occlusion in Right Post. Tibial Intervention done: 0 (1=yes, 0=no) tsites 07:39 PM Diagram Region: Lower Extremity Arteries Anatomical Region: LE-Art90% Lesion in Distal Left Ant. Tibial Intervention done: 1 (1=yes, 0=no) [facility] medical center Hemodynamic Results Site Systolic Diastolic Mean Location Timing Ao 169 82 118 Peripheral Anatomy Vessel Pathology Lesion Stenosis Aneurysm Diameter Thrombus Type Right Superficial Femoral occlusion 100 Left Superficial Femoral occlusion 100 Left Popliteal Lesion 75 Left Post. Tibial occlusion 100 Right Post. Tibial occlusion 100 Left Ant. Tibial Lesion 90 Peripheral Intervention Anatomical Region:LE-Art Vessel Segment:Undefined Bookmark: [email or web address] Pathology Type:occlusion Pre-Stenosis:100 Peripheral Intervention Anatomical Region:LE-Art Vessel Segment:Undefined Bookmark: [email or web address] Pathology Type:Lesion Pre-Stenosis:75 Peripheral Intervention Anatomical Region:LE-Art Vessel Segment:Undefined Bookmark: [email or web address] Pathology Type:Lesion Pre-Stenosis:90 Post Procedure Information Blood Pressure: 176/103 mmHg Rhythm: NSR Post procedure instructions given Site Checks Time Location Status Staff Sheath In? Note 7:30:00 PM Rt Bean Monahan RT (R) Pulses Time Site Pre Procedure Post Procedure Note Rt DP and PT Doppler Lt DP and PT None un able to assess Updated by [facility] RT (R) on 09/21/2016 7:40:04 PM [facility] RT electronically signed on 09/21/2016 7:41:01 PM with status of Final
--- NOTE | 2016-09-21 19:46 | Procedure Note ---
Date of procedure: 09/21/16 Pre-op diagnosis: PAD?left foot gangrene Post-op diagnosis: same Procedure: Abdominal aortogram Aortogram with runoff Balloon angioplasty of left anterior tibial artery with 2 mm and 3 mm diameter balloons Balloon angioplasty of left popliteal and superficial femoral artery with 4 mm diameter balloon [facility] [facility] Surgeon: Cali Casey Pathology: none sent Condition: other (Patient is agitated and minimally cooperative) Disposition: other (Patient has right superficial femoral artery occlusion and tibial artery occlusions bilaterally. Once he is stabilized he will need to return for further endovascular therapy as an outpatient.)
[2016-09-21] MEDS ORDERED: *HR* Atropine Sulfate 1 MG/10 ML SYRINGE ONE (20:35)
[2016-09-21 20:44] LABS: Bilirubin,Urine Negative (Negative); Blood,Urine Large (Negative); Clarity,Urine Clear (Clear); Color,Urine Yellow (Yellow); Glucose,Urine (UA) >=1000 mg/dL (Normal); Ketones,Urine Negative (Negative); Leukocyte Esterase,Urine Negative (Negative); Nitrite,Urine Negative (Negative); Protein,Urine 100 mg/dL (Neg-Trace); Specific Gravity,Urine > 1.030 (1.010-1.025); Urobilinogen,Urine Normal (Normal)
[2016-09-21 20:48] LABS: Bacteria,Urine None Seen per hpf (None-Few); Hyaline Casts,Urine None Seen per lpf (None-Few); Squamous Epithelial Cell,Urine Many per lpf (None-Few)
[2016-09-21 20:50] LABS: Protein/Creatinine Ratio,Urine 1.26 mg/mg (0-0.20)
[2016-09-21 21:02] LABS: RBC,Urine 0-3 per hpf (0-3)
[2016-09-21] MEDS: Insulin DETEMIR 100 UNIT/ML X5UNITS SQ SCH (21:54)
[2016-09-21] MEDS ORDERED: Furosemide 40 MG/4 ML VIAL IVP ONE (22:06)
[2016-09-21] MEDS ORDERED: Furosemide 20 MG/2 ML VIAL IVP ONE (22:09)
[2016-09-22] MEDS: Ipratropium/Albuterol Neb 3 ML IH SCH ×7 (00:45→23:41)
[2016-09-22] MEDS: *HR* OxyCODONE/APAP 5/325 TABLET PO PRN ×4 (00:52→23:38)
[2016-09-22] MEDS ORDERED: MethylPREDNISolone 40 MG/ML VIAL IVP SCH (01:10)
[2016-09-22] MEDS: Nicotine 21 MG PATCH.TD24 TD PRN (01:24)
[2016-09-22] MEDS: 0.9 % Sodium Chloride 1,000 ML IVC SCH ×2 (01:27→08:20)
[2016-09-22] MEDS: *HR* Enoxaparin 40 MG/0.4 ML SYRINGE SQ SCH (05:15)
[2016-09-22 07:22] LABS: Basophils % 0.2 %; Hematocrit 29.1 % (37.5-50.1); Immature Granulocytes % 1.6 % (0-4); Lymphocytes # 0.3 K/mcL (0.6-4.6); Lymphocytes % 2.5 %; Mean Corpuscular HGB Conc 32.3 g/dL (31.6-35.5); Mean Corpuscular Hemoglobin 31.1 pg (28.0-33.3); Mean Corpuscular Volume 96.4 fL (83.0-100.0); Monocytes # 0.3 K/mcL (0.0-1.3); Monocytes % 2.5 %; Neutrophils # 9.2 K/mcL (1.6-8.9); Platelet Count 453 K/mcL (140-400); Red Blood Count 3.02 M/mcL (4.19-5.50); Red Cell Distribution Width 15.6 % (11.5-14.5); Segmented Neutrophils % 93.2 %
[2016-09-22 07:35] LABS: BUN/Creatinine Ratio 16 (6-26); Blood Urea Nitrogen 19 mg/dL (8-26); Calcium 8.4 mg/dL (8.6-10.8); Carbon Dioxide 25 mEq/L (19-29); Chloride 102 mEq/L (98-109); Glucose 469 mg/dL (70-99); Magnesium 1.5 mg/dL (1.6-2.6); Osmolality,Calculated 299 (280-300); Potassium 4.2 mEq/L (3.5-4.5); Sodium 133 mEq/L (136-145); eGFR For African Americans > 60 (> 60); eGFR For Non-African Americans > 60 (> 60)
[2016-09-22 07:49] LABS: Hemoglobin 9.4 g/dL (12.9-16.9)
[2016-09-22] MEDS: Lactobacillus 1 EACH CAP.SPRINK PO SCH (08:06)
[2016-09-22] MEDS: FLUoxetine 20 MG CAPSULE PO SCH (08:07)
[2016-09-22] MEDS: Pantoprazole 40 MG VIAL IVP SCH (08:07)
[2016-09-22] MEDS: Piperacillin/Tazobactam 3.375 GM in D5% in Water (Mini-Bag+) 100 ML IVPB SCH ×3 (08:08→23:41)
[2016-09-22] MEDS: *HR* Acetylcysteine 20% 600 MG/3 ML ORAL SYRINGE PO SCH ×2 (08:08→20:31)
[2016-09-22] MEDS: Insulin LISPRO 300 UNITS/3 ML VIAL SQ SCH ×4 (08:20→20:33)
--- NOTE | 2016-09-22 09:30 | Nephrology Progress Note ---
Date of Encounter: 09/22/16 Time of Encounter: 09:25 - Assessment and Plan (1) ANAI (acute kidney injury) Current Visit: Yes Status: Acute Non-oliguric and his SCr remains stable today at 1.2. Though he is s/p an angiogram, typically DARLINE is not seen until 24 to 72 hr after exposure, so continue to monitor SCr To finish three days of NAC 600mg po bid (currently day 2 of 3). Reasonable to wean off IVF later today, since he's eating and drinking well Meanwhile continue to avoid any other nephrotoxin exposures, as able. Thank you (2) Metabolic acidosis Current Visit: Yes Status: Acute He's on oral sodium bicarb tablets, which is reasonable to continue. Aim for a goal serum CO2 of 21-26 (3) Hyponatremia Current Visit: Yes Status: Acute Psudohyponatremia from hyperglycemia. Will defer to primary on glycemic control. (4) PAD (peripheral artery disease) Current Visit: Yes Status: Acute As per primary and Vasc surgery (5) Hypomagnesemia Current Visit: No Status: Acute Rec repleting. (6) Hypertension Current Visit: No Status: Chronic Avoid CELESTINO or ARB for today and until about 72 hr after contrast exposure. Qualifiers: Hypertension type: essential hypertension Qualified Code(s): I10 - Essential (primary) hypertension Subjective Principal diagnosis: Left foot wound with PVD and recent ANAI Interval history: He did not affirm N/V/D. He reported feeling sweat today. He did not affirm new major complaints such as CP or confusion. Eating breakfast without diminished appetite, he affirmed. Objective - Vital Signs Vital signs: Vital Signs Temp Pulse Pulse Resp BP Pulse Ox 09/22/16 08:14 16 97 09/22/16 08:10 99 96 09/22/16 07:07 97.4 F L 101 17 143/95 98 09/22/16 04:04 20 96 09/22/16 03:28 98.8 F 92 18 153/94 96 09/22/16 01:00 103 138/102 09/22/16 00:45 20 96 09/22/16 00:00 97 143/74 09/21/16 23:30 98.0 F 96 22 161/93 96 09/21/16 23:00 98 149/75 09/21/16 22:30 94 160/87 09/21/16 22:15 100 168/100 09/21/16 22:00 104 192/108 09/21/16 21:40 15 169/85 95 09/21/16 21:35 96 16 96 09/21/16 21:30 98 17 164/82 97 09/21/16 21:25 99 99 18 155/89 95 09/21/16 21:20 91 91 16 150/89 95 09/21/16 21:15 98 145/74 09/21/16 20:18 24 95 09/21/16 20:02 98.6 F 91 18 164/120 92 09/21/16 17:58 18 97 09/21/16 16:05 97.4 F L 87 18 162/81 97 09/21/16 15:46 97.3 F L 86 18 164/76 97 09/21/16 15:45 97.7 F 86 18 160/72 98 09/21/16 12:33 97.9 F 105 20 145/71 96 09/21/16 12:18 97.3 F L 112 18 173/69 95 09/21/16 11:45 105 09/21/16 11:32 20 145/71 96 09/21/16 11:10 98.0 F 106 22 167/79 97 Intake and Output 09/21/16 09/22/16 09/22/16 23:59 07:59 15:59 Intake Total 100 / 100 400 / 400 237 / 237 Output Total 900 / 900 1100 / 1100 Balance -800 / -800 -700 / -700 237 / 237 Intake: IV Fluids 100 / 100 100 / 100 0.9 % Sodium Chloride 1, 0 / 0 000 ML @ 90 mls/hr IVC . [id number] OLIVIA Rx#:[id number] Zosyn 3.375 GM In 100 / 100 100 / 100 Dextrose 5% (Minibag+) 100 ML 100 ML @ 25 mls/hr IVPB Q8HR OLIVIA Rx#: [id number] Oral 237 / 237 Blood Product 0 / 0 300 / 300 Rbcs Leuko Poor As-1 0 / 0 300 / 300 Unit [id number] Output: Urine 900 / 900 1100 / 1100 Other: Weight 67.3 kg Blood Glucose* 211 Patient Weight 09/22/16 23:59 Weight 67.3 kg - General Appearance General appearance: Present: well-developed, well-nourished, appears started age EENT: Present: ATNC, PERRL, mucous membranes moist Neck: Present: supple Respiratory: Present: clear Cardiology: Present: edema (trace pretibial pitting edema b/l ), normal S1, normal S2 Gastrointestinal: Present: normoactive bowel sounds, no tenderness Additional Comments: Left foot was dressed and was C/D/I Musculoskeletal: Present: no cyanosis, no clubbing Psychiatric: Present: mood/affect appropriate, cooperative - Lab 09/22/16 06:45 09/22/16 06:45 Most recent lab results ABG pH 7.40 pH Units (7.32-7.45) 09/18/16 12:30 ABG pCO2 23 mmHg (35-45) L 09/18/16 12:30 ABG pO2 129 mmHg (85-104) H 09/18/16 12:30 ABG HCO3 14.2 mEQ/L (21-27) L 09/18/16 12:30 ABG O2 Saturation 99 % (95-98) H 09/18/16 12:30 Calcium 8.4 mg/dL (8.6-10.8) L 09/22/16 06:45 Phosphorus 2.3 mg/dL (2.3-4.7) 09/19/16 01:16 Magnesium 1.5 mg/dL (1.6-2.6) L 09/22/16 06:45 Urine Creatinine 70 mg/dL 09/21/16 20:25 Urine Sodium 38.0 mEq/L 09/21/16 20:25 Urine Total Protein 88 mg/dL (1-14) H 09/21/16 20:25 Consult Discharge Plan - Plan Referrals: Mara Kiser ADVERTISING SPECIALIST [Primary Care Provider] - 10/04/16 4:00 pm
[2016-09-22] MEDS ORDERED: Magnesium Sulfate 2 GM in D5% in Water 100 ML IVPB ONE (10:42)
--- NOTE | 2016-09-22 10:50 | Infectious Disease Progress No ---
Date of Encounter: 09/22/16 Time of Encounter: 10:48 - Assessment and Plan (1) Sepsis Current Visit: Yes Status: Resolved Severe sepsis: The patient had two SIRS criteria plus abnormal LFTs and ANAI on admission. Likely secondary to left foot infection. Improved. WBC remains elevated, but trending down. He continues to have tachycardia. He has remained afebrile. LFTs and ANAI are improving. Blood cultures drawn 09/17/16 are NGTD x 2 sets. Qualifiers: Sepsis type: sepsis due to unspecified organism Qualified Code(s): A41.9 - Sepsis, unspecified organism (2) Left foot infection Current Visit: Yes Status: Acute Location: Left lateral foot at level of 5th MTP joint. Causative organism: Citrobacter freundii, Proteus vulgaris, and Serratia rubidaea. Concern for anaerobes as well due to soft tissue gas. Likely secondary to previous nail puncture wound. Podiatry consulted and following. Status post bedside bedridement by Dr. Shabazz. Wound probes to bone, but no evidence of necrotizing fasciitis. Per nursing, plan for TMA possibly tomorrow. If patient goes to surgery, please get intra-operative cultures including aerobic cultures, anaerobic cultures, AFB, and GMS. Wound cultures obtained by podiatry during debridement. No inflammatory markers have been checked. Given that the wound probes to bone, will need to treat as osteomyelitis. Check ESR and CRP.--> pending. Will continue vanc and zosyn for now, consider switching to IV levaquin and flagyl if all cultures are final. Will likely also discontinue Vancomycin post- op. Duration of treatment depends on the clinical picture. Monitor renal function and dose-adjust antibiotics. (3) Gangrene of left foot Current Visit: Yes Status: Acute Likely multifactoria: infectious + ischemia. Podiatry consulted and following. Status post bedside bedridement by Dr. Shabazz. Wound probes to bone, but no evidence of necrotizing fasciitis. ABIs show moderate bilateral occlusive disease. Vascular surgery consulted. Status post Abdominal aortogram, Aortogram with runoff, Balloon angioplasty of left anterior tibial artery with 2 mm and 3 mm diameter balloons, and Balloon angioplasty of left popliteal and superficial femoral artery with 4 mm diameter balloon 09/21/[address] Casey. Per the note, the patient will require additional intervention as an outpatient for right superficial femoral artery occlusion and tibial artery occlusions bilaterally. Wound cultures obtained by podiatry during debridement. No inflammatory markers have been checked. Given that the wound probes to bone, will need to treat as osteomyelitis. Wound care and activity restrictions per the podiatry team. Antibiotics as recommended above. (4) Cellulitis Current Visit: Yes Status: Acute Location: Left foot. Causative organism likely P. vulgaris, Citrobacter freundii, and Serratia rubidaea. Likely secondary to left foot puncture wound. X-ray of the left foot shows persistent soft tissue gas, but no osteomyelitis. Continue antibiotics as above. Qualifiers: Site of cellulitis: extremity Site of cellulitis of extremity: lower extremity Laterality: left Qualified Code(s): L03.116 - Cellulitis of left lower limb (5) Pneumonia Current Visit: Yes Status: Acute Location: Right lower lobe. Causative organism unclear. Given recent AMS and patient's ETOH use, concern for aspiration. Continue Zosyn as above. Continue Vancomycin IV. Pharmacy to dose. Goal trough approximately 15. Duration of treatment depends on the clinical picture. Monitor renal function and for drug toxicity and dose-adjust antibiotics. Qualifiers: Pneumonia type: due to unspecified organism Laterality: right Lung location: unspecified part of lung Qualified Code(s): J18.9 - Pneumonia, unspecified organism (6) ANAI (acute kidney injury) Current Visit: Yes Status: Resolved Likely secondary to sepsis. Resolved. Continue to trend. Nephrology consulted and following. Avoid nephrotoxins as able and dose-adjust antibiotics. (7) Anemia Current Visit: Yes Status: Acute Etiology unclear. No active bleeding noted. Improved. Further workup and management per the primary team. Qualifiers: Anemia type: unspecified type Qualified Code(s): D64.9 - Anemia, unspecified (8) Elevated liver enzymes Current Visit: Yes Status: Acute Likely secondary to aspirin over-use. Improved. Continue to trend. (9) Metabolic acidosis Current Visit: Yes Status: Acute (10) PAD (peripheral artery disease) Current Visit: Yes Status: Acute ABIs revealed bilateral moderate occlusive disease. Vascular surgery consulted. Status post Abdominal aortogram, Aortogram with runoff, Balloon angioplasty of left anterior tibial artery with 2 mm and 3 mm diameter balloons, and Balloon angioplasty of left popliteal and superficial femoral artery with 4 mm diameter balloon 09/21/[address] Casey. Per the note, the patient will require additional intervention as an outpatient for right superficial femoral artery occlusion and tibial artery occlusions bilaterally. (11) Aspirin overdose Current Visit: Yes Status: Acute Unintentional. Management per the primary team. Qualifiers: Encounter type: initial encounter Injury intent: accidental or unintentional Qualified Code(s): T39.011A - Poisoning by aspirin, accidental ( unintentional), initial encounter (12) Alcohol dependence Current Visit: Yes Status: Chronic Patient reports drinking 4-6 beers per day. Continue CIWA per primary team's recommendations. Qualifiers: Substance use status: uncomplicated Qualified Code(s): F10.20 - Alcohol dependence, uncomplicated (13) Tobacco dependence Current Visit: Yes Status: Chronic (14) COPD (chronic obstructive pulmonary disease) Current Visit: Yes Status: Chronic Qualifiers: COPD type: unspecified COPD Qualified Code(s): J44.9 - Chronic obstructive pulmonary disease, unspecified (15) Diabetes mellitus, insulin dependent (IDDM), controlled Current Visit: Yes Status: Acute Check HgbA1C. Recommend aggressive glucose monitoring and control to promote wound healing and prevent re-infection. - Subjective Interval history: Patient seen and examined. No acute events noted overnight. Patient resting quietly in bed. Complains of pain in the right groin and left foot/leg. Denies fevers, chills, or rigors. Denies chest pain, shortness of breath, or cough. Denies nausea, vomiting, diarrhea, or constipation. Denies urinary complaints. Denies abdominal pain and states he ate breakfast this morning. Denies oral thrush or new skin lesions. Status post angiogram 09/21/16. Per patient, podiatry planning for TMA tomorrow. Infect Dis PN-Objective Data - Labs CBC & Chem 7: 09/23/16 04:37 09/23/16 04:37 Labs: Laboratory Results - last 24 hr 09/21/16 09/21/16 09/21/16 06:01 08: 10:16 WBC RBC Hgb Hct MCV MCH MCHC RDW Plt Count MPV Immature Gran % Seg Neutrophils % Lymphocytes % Monocytes % Eosinophils % Basophils % Neutrophils # Lymphocytes # Monocytes # Eosinophils # Basophils # Sodium Potassium Chloride Carbon Dioxide BUN Creatinine Est GFR ( Amer) Est GFR (Non-Af Amer) BUN/Creatinine Ratio Glucose POC Glucose 285 H Calculated Osmolality Uric Acid 4.2 Calcium Magnesium Creatine Kinase 3773 H Urine Color Urine Clarity Urine pH Ur Specific [place] Urine Protein Urine Glucose (UA) Urine Ketones Urine Blood Urine Nitrite Urine Bilirubin Urine Urobilinogen Ur Leukocyte Esterase Urine Microscopic RBC Urine Microscopic WBC Ur Eosinophil Smear Ur Squamous Epith Cells Urine Bacteria Hyaline Casts Urine Yeast Ur Culture Indicated? Urine Creatinine Protein/Creatinin Ratio Urine Sodium Urine Total Protein Vancomycin Trough Blood Type O POSITIVE Antibody Screen NEGATIVE Crossmatch See Detail 09/21/16 09/21/16 09/21/16 11:14 15:22 15:22 WBC RBC Hgb Hct MCV MCH MCHC RDW Plt Count MPV Immature Gran % Seg Neutrophils % Lymphocytes % Monocytes % Eosinophils % Basophils % Neutrophils # Lymphocytes # Monocytes # Eosinophils # Basophils # Sodium Potassium Chloride Carbon Dioxide BUN Creatinine Est GFR ( Amer) Est GFR (Non-Af Amer) BUN/Creatinine Ratio Glucose POC Glucose 199 H 19 L* 18 L* Calculated Osmolality Uric Acid Calcium Magnesium Creatine Kinase Urine Color Urine Clarity Urine pH Ur Specific [place] Urine Protein Urine Glucose (UA) Urine Ketones Urine Blood Urine Nitrite Urine Bilirubin Urine Urobilinogen Ur Leukocyte Esterase Urine Microscopic RBC Urine Microscopic WBC Ur Eosinophil Smear Ur Squamous Epith Cells Urine Bacteria Hyaline Casts Urine Yeast Ur Culture Indicated? Urine Creatinine Protein/Creatinin Ratio Urine Sodium Urine Total Protein Vancomycin Trough Blood Type Antibody Screen Crossmatch 09/21/16 09/21/16 09/21/16 15:35 15:44 16:25 WBC RBC Hgb Hct MCV MCH MCHC RDW Plt Count MPV Immature Gran % Seg Neutrophils % Lymphocytes % Monocytes % Eosinophils % Basophils % Neutrophils # Lymphocytes # Monocytes # Eosinophils # Basophils # Sodium Potassium Chloride Carbon Dioxide BUN Creatinine Est GFR ( Amer) Est GFR (Non-Af Amer) BUN/Creatinine Ratio Glucose POC Glucose 149 H 132 H 74 Calculated Osmolality Uric Acid Calcium Magnesium Creatine Kinase Urine Color Urine Clarity Urine pH Ur Specific [place] Urine Protein Urine Glucose (UA) Urine Ketones Urine Blood Urine Nitrite Urine Bilirubin Urine Urobilinogen Ur Leukocyte Esterase Urine Microscopic RBC Urine Microscopic WBC Ur Eosinophil Smear Ur Squamous Epith Cells Urine Bacteria Hyaline Casts Urine Yeast Ur Culture Indicated? Urine Creatinine Protein/Creatinin Ratio Urine Sodium Urine Total Protein Vancomycin Trough Blood Type Antibody Screen Crossmatch 09/21/16 09/21/16 09/21/16 16:55 17:08 17:38 WBC RBC Hgb Hct MCV MCH MCHC RDW Plt Count MPV Immature Gran % Seg Neutrophils % Lymphocytes % Monocytes % Eosinophils % Basophils % Neutrophils # Lymphocytes # Monocytes # Eosinophils # Basophils # Sodium Potassium Chloride Carbon Dioxide BUN Creatinine Est GFR ( Amer) Est GFR (Non-Af Amer) BUN/Creatinine Ratio Glucose POC Glucose 55 L 191 H 183 H Calculated Osmolality Uric Acid Calcium Magnesium Creatine Kinase Urine Color Urine Clarity Urine pH Ur Specific [place] Urine Protein Urine Glucose (UA) Urine Ketones Urine Blood Urine Nitrite Urine Bilirubin Urine Urobilinogen Ur Leukocyte Esterase Urine Microscopic RBC Urine Microscopic WBC Ur Eosinophil Smear Ur Squamous Epith Cells Urine Bacteria Hyaline Casts Urine Yeast Ur Culture Indicated? Urine Creatinine Protein/Creatinin Ratio Urine Sodium Urine Total Protein Vancomycin Trough Blood Type Antibody Screen Crossmatch 09/21/16 09/21/16 09/21/16 19:57 19:57 20:25 WBC RBC Hgb Hct MCV MCH MCHC RDW Plt Count MPV Immature Gran % Seg Neutrophils % Lymphocytes % Monocytes % Eosinophils % Basophils % Neutrophils # Lymphocytes # Monocytes # Eosinophils # Basophils # Sodium Potassium Chloride Carbon Dioxide BUN Creatinine Est GFR ( Amer) Est GFR (Non-Af Amer) BUN/Creatinine Ratio Glucose POC Glucose 116 H Calculated Osmolality Uric Acid Calcium Magnesium Creatine Kinase Urine Color Yellow Urine Clarity Clear Urine pH 6.0 Ur Specific [place] > 1.030 H Urine Protein 100 H Urine Glucose (UA) >=1000 H Urine Ketones Negative Urine Blood Large H Urine Nitrite Negative Urine Bilirubin Negative Urine Urobilinogen Normal Ur Leukocyte Esterase Negative Urine Microscopic RBC 0-3 Urine Microscopic WBC 3-5 H Ur Eosinophil Smear 0 Ur Squamous Epith Cells Many H Urine Bacteria None Seen Hyaline Casts None Seen Urine Yeast Test Not Performed Ur Culture Indicated? NO Urine Creatinine Protein/Creatinin Ratio Urine Sodium Urine Total Protein Vancomycin Trough 12.0 Blood Type Antibody Screen Crossmatch 09/21/16 09/21/16 09/22/16 20:25 23:12 06:45 WBC 9.9 RBC 3.02 L Hgb 9.4 L D Hct 29.1 L MCV 96.4 MCH 31.1 MCHC 32.3 RDW 15.6 H Plt Count 453 H MPV 9.0 L Immature Gran % 1.6 Seg Neutrophils % 93.2 Lymphocytes % 2.5 Monocytes % 2.5 Eosinophils % 0.0 Basophils % 0.2 Neutrophils # 9.2 H Lymphocytes # 0.3 L Monocytes # 0.3 Eosinophils # 0.0 Basophils # 0.0 Sodium Potassium Chloride Carbon Dioxide BUN Creatinine Est GFR ( Amer) Est GFR (Non-Af Amer) BUN/Creatinine Ratio Glucose POC Glucose 211 H Calculated Osmolality Uric Acid Calcium Magnesium Creatine Kinase Urine Color Urine Clarity Urine pH Ur Specific [place] Urine Protein Urine Glucose (UA) Urine Ketones Urine Blood Urine Nitrite Urine Bilirubin Urine Urobilinogen Ur Leukocyte Esterase Urine Microscopic RBC Urine Microscopic WBC Ur Eosinophil Smear Ur Squamous Epith Cells Urine Bacteria Hyaline Casts Urine Yeast Ur Culture Indicated? Urine Creatinine 70 Protein/Creatinin Ratio 1.26 H Urine Sodium 38.0 Urine Total Protein 88 H Vancomycin Trough Blood Type Antibody Screen Crossmatch 09/22/16 09/22/16 06:45 06:45 WBC RBC Hgb Hct MCV MCH MCHC RDW Plt Count MPV Immature Gran % Seg Neutrophils % Lymphocytes % Monocytes % Eosinophils % Basophils % Neutrophils # Lymphocytes # Monocytes # Eosinophils # Basophils # Sodium 133 L Potassium 4.2 Chloride 102 Carbon Dioxide 25 BUN 19 Creatinine 1.21 Est GFR ( Amer) > 60 Est GFR (Non-Af Amer) > 60 BUN/Creatinine Ratio 16 Glucose 469 H POC Glucose Calculated Osmolality 299 Uric Acid Calcium 8.4 L Magnesium 1.5 L Creatine Kinase Urine Color Urine Clarity Urine pH Ur Specific [place] Urine Protein Urine Glucose (UA) Urine Ketones Urine Blood Urine Nitrite Urine Bilirubin Urine Urobilinogen Ur Leukocyte Esterase Urine Microscopic RBC Urine Microscopic WBC Ur Eosinophil Smear Ur Squamous Epith Cells Urine Bacteria Hyaline Casts Urine Yeast Ur Culture Indicated? Urine Creatinine Protein/Creatinin Ratio Urine Sodium Urine Total Protein Vancomycin Trough 16.4 Blood Type Antibody Screen Crossmatch Cultures: Cultures 09/17/16 22:47 Anaerobic Culture - Final Left Foot No anaerobes were recovered. 09/17/16 22:47 Wound Culture - Final Left Foot Proteus vulgaris Citrobacter freundii complex Serratia rubidaea 09/17/16 20:52 Blood Culture - Preliminary Peripheral Venipuncture No growth. 09/17/16 20:59 Blood Culture - Preliminary Peripheral Venipuncture No growth. Serology 09/21/16 09/21/16 09/20/16 Range/Units 20:25 20:25 04:07 Urine Color Yellow (Yellow) Urine Clarity Clear (Clear) Urine pH 6.0 (5.0-8.0) pH Units Ur Specific [place] > 1.030 H (1.010-1.025) Urine Protein 100 H (Neg-Trace) mg/dL Urine Glucose (UA) >=1000 H (Normal) mg/dL Urine Ketones Negative (Negative) mg/dL Urine Blood Large H (Negative) Urine Nitrite Negative (Negative) Urine Bilirubin Negative (Negative) Urine Urobilinogen Normal (Normal) mg/dL Ur Leukocyte Esterase Negative (Negative) Urine Microscopic RBC 0-3 (0-3) per hpf Urine Microscopic WBC 3-5 H (0-3) per hpf Ur Eosinophil Smear 0 (None Seen) % Ur Squamous Epith Cells Many H (None-Few) per lpf Urine Bacteria None Seen (None-Few) per hpf Hyaline Casts None Seen (None-Few) per lpf Urine Yeast Test Not Performed Ur Culture Indicated? NO (NO) Urine Creatinine 70 mg/dL Protein/Creatinin Ratio 1.26 H (0-0.20) mg/mg Urine Sodium 38.0 mEq/L Urine Total Protein 88 H (1-14) mg/dL Hepatitis A IgM Ab Nonreactive (Nonreactive) Hep Bs Antigen Nonreactive (Nonreactive) Hep B Core IgM Ab Nonreactive (Nonreactive) Hepatitis C Ab Screen Nonreactive (Nonreactive) Exam - Constitutional Vitals: Temp Pulse Resp BP Pulse Ox 97.4 F L 99 16 143/95 97 09/22/16 07:07 09/22/16 08:10 09/22/16 08:14 09/22/16 07:07 09/22/16 08:14 General appearance: average body habitus, cooperative, no acute distress - Head Head exam: Present: atraumatic, normal inspection, normocephalic - Eye Eye exam: Present: EOMI, normal appearance, PERRL Pupils: Present: normal accommodation - ENT ENT exam: Present: mucous membranes moist - Neck Neck exam: Present: normal inspection - Respiratory Respiratory exam: Present: CTAB. Absent: rales, respiratory distress, rhonchi, wheezes - Cardiovascular Cardiovascular exam: Present: RRR, +S1, +S2 - GI/Abdominal GI/Abdominal exam: Present: distended, normal bowel sounds, soft, tenderness ( RLQ) - Extremities Exam Extremities exam: Present: normal inspection, pedal edema (1+ RLE, 2+ LLE), tenderness (left foot, left lower leg). Absent: joint swelling Additional comments: Toes #4 and #5 to the left foot remain cyanotic. Left foot ulcer unchanged from previous. Foul odor noted. No drainage. - Neurological Exam Neurological exam: Present: alert, oriented X3, no focal deficits - Psychiatric Psychiatric exam: Present: normal affect, normal mood - Skin Skin exam: Present: dry, intact, normal color, warm - Additional findings Additional findings: Right groin dressing noted. No drainage. Site soft without hematoma. Consult Discharge Plan - Plan Referrals: Mara Kiser CNP [Primary Care Provider] - 10/04/16 4:00 pm - Attending Attestation I examined this patient and my medical decision-making was reviewed with the Resident Physician. I agree with the documented findings, disposition and treatment plan as described except to the extent set forth below.
[2016-09-22] MEDS ORDERED: 0.9 % Sodium Chloride 1,000 ML IVC SCH (10:54)
--- NOTE | 2016-09-22 10:57 | Internal Med Progress Note ---
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 but it can be d/c later Consulted ID for further abx management Had angiogram 09/21/16 with Balloon angioplasty of left anterior tibial artery with 2 mm and 3 mm diameter balloons Balloon angioplasty of left popliteal and superficial femoral artery with 4 mm diameter balloon Regarding further debridement vs amputation - will f/u with camp assistant may need half-way IV abx (3) Salicylate causing adverse effect in therapeutic use Current Visit: No Status: Acute Assessment and plan: resolved..no signs of overdose Qualifiers: Qualified Code(s): T39.095A - Adverse effect of salicylates, initial encounter (4) PAD (peripheral artery disease) Current Visit: Yes Status: Acute Assessment and plan: s/p Balloon angioplasty of left anterior tibial artery with 2 mm and 3 mm diameter balloons Balloon angioplasty of left popliteal and superficial femoral artery with 4 mm diameter balloon cont Plavix Cont Acetylcysteine and IV fluids for another 24 hrs (5) Acute kidney failure Current Visit: Yes Status: Acute Assessment and plan: Improving cont IV hdyration Since pt went for angiogram - started him on Acetylcystine 600mg BID x 2 days Nephro consulted Qualifiers: Qualified Code(s): N17.9 - Acute kidney failure, unspecified (6) Diabetes mellitus, insulin dependent (IDDM), controlled Current Visit: Yes Status: Acute Assessment and plan: Con ISS + Levemir 20 U QHS HbA1C 8.5 Y/D had hypoglycemic episode mostly due to NPO .. which resolved now (7) Elevated liver enzymes Current Visit: Yes Status: Acute (8) Alcohol dependence Current Visit: Yes Status: Chronic Assessment and plan: counseled to quit had last alcohol a week ago no signs of withdrawl cont close monitoring Qualifiers: Qualified Code(s): F10.20 - Alcohol dependence, uncomplicated (9) COPD (chronic obstructive pulmonary disease) Current Visit: Yes Status: Chronic Assessment and plan: Not in exacerbation cont home regimen Qualifiers: Qualified Code(s): J44.9 - Chronic obstructive pulmonary disease, unspecified (10) Hypertension Current Visit: No Status: Chronic Assessment and plan: Continue home medications. BP is stable Qualifiers: Qualified Code(s): I10 - Essential (primary) hypertension (11) Tobacco dependence Current Visit: Yes Status: Chronic Assessment and plan: Counseled to quit smoking placed on nicotine patch (12) DVT prophylaxis Current Visit: Yes Status: Acute Assessment and plan: on Lovenox - Subjective Interval history: This is a 55 y/o M with known PMH of HTN, DM2, COPD, Chronic smoker, chronic alcohol dependent pt who recently admitted at [facility] for left foot gangrene developed after he stepped on a nail. He went back to [facility] on with worsening Left foot swelling / tenderness and 4th and 5th toe black discoloration. Pt was admitted here for further care. He was seen by camp assistant and performed a debridement, however his left foot cellulites unchanged. He is still c/o pain, does have swelling and erythema with black discolored left 4th and 5th toe as well as base distal 4th,5th MTP joints. He did go for angioplasty on 09/21/16 - Constitutional Vitals: Temp Pulse Resp BP Pulse Ox 97.4 F L 99 16 143/95 97 09/22/16 07:07 09/22/16 08:10 09/22/16 08:14 09/22/16 07:07 09/22/16 08:14 General appearance: Present: A&O X 3, no acute distress, answers questions appropriately - Head Head exam: Present: atraumatic, normal inspection - Neck Neck exam general surgery: Present: supple - Respiratory Respiratory exam: Present: decreased breath sounds, wheezes. Absent: rales, respiratory distress, rhonchi - Cardiovascular Cardiovascular exam: Present: RRR, +S1, +S2. Absent: systolic murmur - GI/Abdominal GI/Abdominal exam: Present: normal bowel sounds, soft, no peritoneal signs. Absent: distended, tenderness - Extremities Exam Additional comments: mild improving discoloration over Left 4th and 5th toes noticed. Still has erythema and swelling over left foot dorsal region - Neurological Exam Neurological exam: Present: alert, oriented X3 - Psychiatric Psychiatric exam: Present: normal affect, normal mood Internal Medicine: Result - Labs CBC & Chem 7: 09/22/16 06:45 09/22/16 06:45 Labs: Short CBC 09/22/16 Range/Units 06:45 WBC 9.9 (4.3-11.1) K/mcL Hgb 9.4 L D (12.9-16.9) g/dL Hct 29.1 L (37.5-50.1) % Plt Count 453 H (140-400) K/mcL Neutrophils # 9.2 H (1.6-8.9) K/mcL BMP 09/22/16 06:45 Sodium 133 L Potassium 4.2 Chloride 102 Carbon Dioxide 25 BUN 19 Creatinine 1.21 Glucose 469 H Calcium 8.4 L Urine 09/21/16 Range/Units 20:25 Urine Color Yellow (Yellow) Urine Clarity Clear (Clear) Urine pH 6.0 (5.0-8.0) pH Units Ur Specific [place] > 1.030 H (1.010-1.025) Urine Protein 100 H (Neg-Trace) mg/dL Urine Glucose (UA) >=1000 H (Normal) mg/dL - ABG Interpretation ABG results: ABG ABG pH 7.40 pH Units (7.32-7.45) 09/18/16 12:30 ABG pCO2 23 mmHg (35-45) L 09/18/16 12:30 ABG pO2 129 mmHg (85-104) H 09/18/16 12:30 ABG O2 Saturation 99 % (95-98) H 09/18/16 12:30 PT/INR, D-dimer PT 14.2 Seconds (9.4-12.1) H 09/21/16 07:58 Consult Discharge Plan - Plan Referrals: Mara Kiser CNP [Primary Care Provider] - 10/04/16 4:00 pm
[2016-09-22] MEDS: *HR* HYDROcodone/Acet 5/325 mg TABLET PO PRN ×2 (11:10→21:41)
[2016-09-22] MEDS ORDERED: Vancomycin 1,000 MG in D5% in Water 250 ML IVPB SCH (17:00)
--- NOTE | 2016-09-22 17:25 | Vascular/Endovas Progress Note ---
Date of Encounter: 09/22/16 Time of Encounter: 17:23 - Assessment and plan (1) PAD (peripheral artery disease) Current Visit: Yes Status: Acute Patent left lower extremity endovascular intervention. Perfusion of left foot is improved. Patient's white blood cell count and hemoglobin are stable. Serum creatinine is stable. Patient is overall clinically stable following intervention. Further debridement of foot is pending. (2) COPD (chronic obstructive pulmonary disease) Current Visit: Yes Status: Chronic Patient under medical treatment for chronic COPD Qualifiers: COPD type: unspecified COPD Qualified Code(s): J44.9 - Chronic obstructive pulmonary disease, unspecified (3) Cellulitis Current Visit: Yes Status: Acute Left foot cellulitis and probable deeper tissue involvement. This will be followed by podiatry. Qualifiers: Site of cellulitis: extremity Site of cellulitis of extremity: lower extremity Laterality: left Qualified Code(s): L03.116 - Cellulitis of left lower limb - Subjective Interval history: Patient is postprocedure day #1 following Adriana Bryan and angioplasty performed last night. Patient complains of pain left lower extremity but no other significant change. Vital Signs, Last 4 Hours Temp Pulse Resp BP Pulse Ox 09/22/16 16:23 16 90 09/22/16 16:15 97.4 F L 103 19 167/86 93 - Physical Examination General: Present: Conversant, No Apparent Distress Vascular: Present: Color/Temperature (Left foot is warm and pink.), Other ( Patient has Doppler signals 3 at the left ankle and also a strong biphasic signal in the first inner digital web space.) Results 09/22/16 06:45 09/22/16 06:45 Lab Results, Last 24 hours 09/22/16 09/22/16 06:45 06:45 WBC 9.9 Hgb 9.4 L D Hct 29.1 L Plt Count 453 H Sodium 133 L Potassium 4.2 Chloride 102 Carbon Dioxide 25 BUN 19 Creatinine 1.21 Glucose 469 H Calcium 8.4 L Magnesium 1.5 L Consult Discharge Plan - Plan Referrals: Mara Kiser, GUIT[employer] [Primary Care Provider] - 10/04/16 4:00 pm
[2016-09-22] MEDS: Insulin DETEMIR 100 UNIT/ML X5UNITS SQ SCH (20:32)
[2016-09-23] MEDS: *HR* HYDROcodone/Acet 5/325 mg TABLET PO PRN ×2 (04:30→11:02)
[2016-09-23] MEDS: Ipratropium/Albuterol Neb 3 ML IH SCH ×6 (05:05→23:13)
[2016-09-23 05:34] LABS: Basophils % 0.2 %; Eosinophils # 0.1 K/mcL (0.0-0.6); Eosinophils % 0.7 %; Hematocrit 28.7 % (37.5-50.1); Hemoglobin 9.2 g/dL (12.9-16.9); Immature Granulocytes % 1.1 % (0-4); Lymphocytes # 1.5 K/mcL (0.6-4.6); Mean Corpuscular HGB Conc 32.1 g/dL (31.6-35.5); Mean Corpuscular Hemoglobin 31.2 pg (28.0-33.3); Mean Corpuscular Volume 97.3 fL (83.0-100.0); Mean Platelet Volume 8.8 fL (9.4-12.4); Monocytes # 1.2 K/mcL (0.0-1.3); Neutrophils # 9.5 K/mcL (1.6-8.9); Platelet Count 459 K/mcL (140-400); Red Blood Count 2.95 M/mcL (4.19-5.50); Red Cell Distribution Width 15.4 % (11.5-14.5)
[2016-09-23 05:48] LABS: BUN/Creatinine Ratio 18 (6-26); Blood Urea Nitrogen 18 mg/dL (8-26); Calcium 8.5 mg/dL (8.6-10.8); Carbon Dioxide 28 mEq/L (19-29); Chloride 101 mEq/L (98-109); Glucose 182 mg/dL (70-99); Osmolality,Calculated 285 (280-300); Potassium 4.2 mEq/L (3.5-4.5); Sodium 134 mEq/L (136-145); eGFR For African Americans > 60 (> 60); eGFR For Non-African Americans > 60 (> 60)
[2016-09-23] MEDS: *HR* Enoxaparin 40 MG/0.4 ML SYRINGE SQ SCH (06:48)
[2016-09-23] MEDS: Insulin LISPRO 300 UNITS/3 ML VIAL SQ SCH ×4 (07:59→21:00)
[2016-09-23 08:36] LABS: Hemoglobin A1C 7.4 %
[2016-09-23] MEDS: FLUoxetine 20 MG CAPSULE PO SCH (08:52)
[2016-09-23] MEDS: MethylPREDNISolone 40 MG/ML VIAL IVP SCH (08:52)
[2016-09-23] MEDS: Lactobacillus 1 EACH CAP.SPRINK PO SCH (08:52)
[2016-09-23] MEDS: *HR* OxyCODONE/APAP 5/325 TABLET PO PRN ×3 (08:52→22:16)
[2016-09-23] MEDS: Piperacillin/Tazobactam 3.375 GM in D5% in Water (Mini-Bag+) 100 ML IVPB SCH ×2 (08:53→16:13)
--- NOTE | 2016-09-23 09:14 | Nephrology Progress Note ---
Date of Encounter: 09/23/16 Time of Encounter: 09:12 - Assessment and Plan (1) ANAI (acute kidney injury) Current Visit: Yes Status: Resolved Kidney function WNL Nephrology signing off case BMP 1 week after discharge Follow up in office with Dr Beltran in 2 months (2) Gangrene of left foot Current Visit: Yes Status: Acute per podiatry team (3) PAD (peripheral artery disease) Current Visit: Yes Status: Acute per primary and vascular surgery teams Subjective Principal diagnosis: Left foot wound with PVD and recent ANAI Interval history: Patient seen and examined. Says he is feeling better. Objective - Vital Signs Vital signs: Vital Signs Temp Pulse Resp BP Pulse Ox 09/23/16 08:16 98.4 F 103 19 144/87 96 09/23/16 07:50 19 98 09/23/16 07:30 98.0 F 90 19 155/79 98 09/23/16 05:07 14 98 09/23/16 04:22 98.7 F 92 135/75 97 09/23/16 04:20 89 09/22/16 23:42 15 139/114 97 09/22/16 23:40 95 09/22/16 23:24 98.4 F 91 139/114 97 09/22/16 20:45 105 09/22/16 20:25 15 100 09/22/16 19:39 98.1 F 101 18 159/76 98 09/22/16 17:22 104 98 09/22/16 16:23 16 90 09/22/16 16:15 97.4 F L 103 19 167/86 93 09/22/16 11:24 16 94 09/22/16 11:10 94 09/22/16 10:59 97.4 F L 93 18 141/75 95 Intake and Output 09/22/16 09/23/16 09/23/16 23:59 07:59 15:59 Intake Total 827 / 827 100 / 100 Output Total 650 / 650 850 / 850 Balance 177 / 177 -750 / -750 Intake: IV Fluids 350 / 350 100 / 100 Zosyn 3.375 GM In 100 / 100 100 / 100 Dextrose 5% (Minibag+) 100 ML 100 ML @ 25 mls/hr IVPB Q8HR [facility] Rx#: [id number] Vancocin 1,000 MG In 250 / 250 Dextrose 5% 250 ML @ 166. 667 mls/hr IVPB Q24H [facility] Rx#:[id number] Oral 477 / 477 Output: Urine 650 / 650 850 / 850 Other: Stool Size Moderate Stool Consistency loose soft Stool Characteristics Normal for Patient Stool Color Brown Weight 73.936 kg 73.936 kg Blood Glucose* 115 156 Patient Weight 09/23/16 23:59 Weight 73.936 kg - General Appearance General appearance: Present: well-developed, well-nourished EENT: Present: ATNC, mucous membranes moist, hearing intact, vision intact Neck: Present: supple Respiratory: Present: clear Cardiology: Present: no edema, normal S1, normal S2 Gastrointestinal: Present: no tenderness, no guarding Neurologic: Present: alert and oriented x3 Psychiatric: Present: mood/affect appropriate, cooperative - Lab 09/23/16 04:37 09/23/16 04:37 Most recent lab results ABG pH 7.40 pH Units (7.32-7.45) 09/18/16 12:30 ABG pCO2 23 mmHg (35-45) L 09/18/16 12:30 ABG pO2 129 mmHg (85-104) H 09/18/16 12:30 ABG HCO3 14.2 mEQ/L (21-27) L 09/18/16 12:30 ABG O2 Saturation 99 % (95-98) H 09/18/16 12:30 Calcium 8.5 mg/dL (8.6-10.8) L 09/23/16 04:37 Phosphorus 2.3 mg/dL (2.3-4.7) 09/19/16 01:16 Magnesium 1.5 mg/dL (1.6-2.6) L 09/22/16 06:45 Urine Creatinine 70 mg/dL 09/21/16 20:25 Urine Sodium 38.0 mEq/L 09/21/16 20:25 Urine Total Protein 88 mg/dL (1-14) H 09/21/16 20:25 Consult Discharge Plan - Plan Referrals: Mara Kiser [employer]CH[employer]IC [Primary Care Provider] - 10/04/16 4:00 pm
[2016-09-23 09:55] LABS: C-Reactive Protein 133 mg/L (Less than 5)
[2016-09-23] MEDS: *HR* Acetylcysteine 20% 600 MG/3 ML ORAL SYRINGE PO SCH (10:04)
[2016-09-23] MEDS: Nicotine 21 MG PATCH.TD24 TD PRN (11:17)
--- NOTE | 2016-09-23 13:34 | Infectious Disease Progress No ---
Date of Encounter: 09/23/16 Time of Encounter: 13:33 - Assessment and Plan (1) Sepsis Current Visit: Yes Status: Resolved Severe sepsis: The patient had two SIRS criteria plus abnormal LFTs and ANAI on admission. Likely secondary to left foot infection. Improved. WBC back up a littel today. He continues to have tachycardia. He has remained afebrile. LFTs and ANAI are improving. Blood cultures drawn 09/17/16 are NGTD x 2 sets. Qualifiers: Sepsis type: sepsis due to unspecified organism Qualified Code(s): A41.9 - Sepsis, unspecified organism (2) Left foot infection Current Visit: Yes Status: Acute Location: Left lateral foot at level of 5th MTP joint. Causative organism: Citrobacter freundii, Proteus vulgaris, and Serratia rubidaea. Concern for anaerobes as well due to soft tissue gas. Likely secondary to previous nail puncture wound. Podiatry consulted and following. Status post bedside bedridement by Dr. Shabazz. Wound probes to bone, but no evidence of necrotizing fasciitis. Possible surgery later today. If patient goes to surgery, please get intra- operative cultures including aerobic cultures, anaerobic cultures, AFB, and GMS. Wound cultures obtained by podiatry during debridement. ESR and CRP are markedly elevated. Given that the wound probes to bone, will need to treat as osteomyelitis. Will continue vanc and zosyn for now, consider switching to IV levaquin and flagyl if all cultures are final. Will likely also discontinue Vancomycin post- op. Duration of treatment depends on the clinical picture. Monitor renal function and for drug toxicity and dose-adjust antibiotics. (3) Gangrene of left foot Current Visit: Yes Status: Acute Likely multifactorial: infectious + ischemia. Podiatry consulted and following. Status post bedside bedridement by Dr. Shabazz. Wound probes to bone, but no evidence of necrotizing fasciitis. ABIs show moderate bilateral occlusive disease. Vascular surgery consulted. Status post Abdominal aortogram, Aortogram with runoff, Balloon angioplasty of left anterior tibial artery with 2 mm and 3 mm diameter balloons, and Balloon angioplasty of left popliteal and superficial femoral artery with 4 mm diameter balloon 09/21/[address] Casey. Per the note, the patient will require additional intervention as an outpatient for right superficial femoral artery occlusion and tibial artery occlusions bilaterally. Wound cultures obtained by podiatry during debridement. Given that the wound probes to bone, will need to treat as osteomyelitis. Wound care and activity restrictions per the podiatry team. Antibiotics as recommended above. (4) Cellulitis Current Visit: Yes Status: Acute Location: Left foot. Causative organism likely P. vulgaris, Citrobacter freundii, and Serratia rubidaea. Likely secondary to left foot puncture wound. X-ray of the left foot shows persistent soft tissue gas, but no osteomyelitis. Continue antibiotics as above. Qualifiers: Site of cellulitis: extremity Site of cellulitis of extremity: lower extremity Laterality: left Qualified Code(s): L03.116 - Cellulitis of left lower limb (5) Pneumonia Current Visit: Yes Status: Acute Location: Right lower lobe. Causative organism unclear. Given recent AMS and patient's ETOH use, concern for aspiration. Continue Zosyn as above. Continue Vancomycin IV. Pharmacy to dose. Goal trough approximately 15. Duration of treatment depends on the clinical picture. Monitor renal function and for drug toxicity and dose-adjust antibiotics. Consider repeating CXR in the AM. Qualifiers: Pneumonia type: due to unspecified organism Laterality: right Lung location: unspecified part of lung Qualified Code(s): J18.9 - Pneumonia, unspecified organism (6) ANAI (acute kidney injury) Current Visit: Yes Status: Resolved Likely secondary to sepsis. Resolved. Continue to trend. Nephrology consulted and following. Avoid nephrotoxins as able and dose-adjust antibiotics. (7) Anemia Current Visit: Yes Status: Acute Etiology unclear. No active bleeding noted. Improved. Further workup and management per the primary team. Qualifiers: Anemia type: unspecified type Qualified Code(s): D64.9 - Anemia, unspecified (8) Elevated liver enzymes Current Visit: Yes Status: Acute Likely secondary to aspirin over-use. Improved. Continue to trend. (9) Metabolic acidosis Current Visit: Yes Status: Acute (10) PAD (peripheral artery disease) Current Visit: Yes Status: Acute ABIs revealed bilateral moderate occlusive disease. Vascular surgery consulted. Status post Abdominal aortogram, Aortogram with runoff, Balloon angioplasty of left anterior tibial artery with 2 mm and 3 mm diameter balloons, and Balloon angioplasty of left popliteal and superficial femoral artery with 4 mm diameter balloon 09/21/[address] Casey. Per the note, the patient will require additional intervention as an outpatient for right superficial femoral artery occlusion and tibial artery occlusions bilaterally. (11) Aspirin overdose Current Visit: Yes Status: Acute Unintentional. Management per the primary team. Qualifiers: Encounter type: initial encounter Injury intent: accidental or unintentional Qualified Code(s): T39.011A - Poisoning by aspirin, accidental ( unintentional), initial encounter (12) Alcohol dependence Current Visit: Yes Status: Chronic Patient reports drinking 4-6 beers per day. Continue CIWA per primary team's recommendations. Qualifiers: Substance use status: uncomplicated Qualified Code(s): F10.20 - Alcohol dependence, uncomplicated (13) Tobacco dependence Current Visit: Yes Status: Chronic (14) COPD (chronic obstructive pulmonary disease) Current Visit: Yes Status: Chronic Qualifiers: COPD type: unspecified COPD Qualified Code(s): J44.9 - Chronic obstructive pulmonary disease, unspecified (15) Diabetes mellitus, insulin dependent (IDDM), controlled Current Visit: Yes Status: Acute HgbA1C 7.4%. Recommend aggressive glucose monitoring and control to promote wound healing and prevent re-infection. - Subjective Interval history: Patient seen and examined. No acute events noted overnight. Patient resting quietly in bed. Complains of pain in the left foot/leg. Denies fevers, chills, or rigors. Denies chest pain, shortness of breath, or cough. Denies nausea, vomiting, diarrhea, or constipation. Denies urinary complaints. Denies abdominal pain. Currently NPO for possible surgery later today. Denies oral thrush or new skin lesions. Status post angiogram 09/21/16. Infect Dis PN-Objective Data - Labs CBC & Chem 7: 09/23/16 04:37 09/23/16 04:37 Labs: Laboratory Results - last 24 hr 09/22/16 09/22/16 09/22/16 08:11 08:13 16:18 WBC RBC Hgb Hct MCV MCH MCHC RDW Plt Count MPV Immature Gran % Seg Neutrophils % Lymphocytes % Monocytes % Eosinophils % Basophils % Neutrophils # Lymphocytes # Monocytes # Eosinophils # Basophils # ESR Sodium Potassium Chloride Carbon Dioxide BUN Creatinine Est GFR ( Amer) Est GFR (Non-Af Amer) BUN/Creatinine Ratio Glucose POC Glucose 403 H* 544 H* 253 H Est Mean Plasma Glucose Hemoglobin A1c Calculated Osmolality Calcium C-Reactive Protein 09/22/16 09/22/16 09/23/16 19:45 23:29 04:37 WBC RBC Hgb Hct MCV MCH MCHC RDW Plt Count MPV Immature Gran % Seg Neutrophils % Lymphocytes % Monocytes % Eosinophils % Basophils % Neutrophils # Lymphocytes # Monocytes # Eosinophils # Basophils # ESR 108 H Sodium Potassium Chloride Carbon Dioxide BUN Creatinine Est GFR ( Amer) Est GFR (Non-Af Amer) BUN/Creatinine Ratio Glucose POC Glucose 265 H 115 H Est Mean Plasma Glucose Hemoglobin A1c Calculated Osmolality Calcium C-Reactive Protein 09/23/16 09/23/16 09/23/16 04:37 04:37 04:37 WBC 12.5 H RBC 2.95 L Hgb 9.2 L Hct 28.7 L MCV 97.3 MCH 31.2 MCHC 32.1 RDW 15.4 H Plt Count 459 H MPV 8.8 L Immature Gran % 1.1 Seg Neutrophils % 76.0 Lymphocytes % 12.0 Monocytes % 10.0 Eosinophils % 0.7 Basophils % 0.2 Neutrophils # 9.5 H Lymphocytes # 1.5 Monocytes # 1.2 Eosinophils # 0.1 Basophils # 0.0 ESR Sodium 134 L Potassium 4.2 Chloride 101 Carbon Dioxide 28 BUN 18 Creatinine 1.01 Est GFR ( Amer) > 60 Est GFR (Non-Af Amer) > 60 BUN/Creatinine Ratio 18 Glucose 182 H POC Glucose Est Mean Plasma Glucose 166 Hemoglobin A1c 7.4 H Calculated Osmolality 285 Calcium 8.5 L C-Reactive Protein 133 H Cultures: Cultures 09/17/16 20:52 Blood Culture - Final Peripheral Venipuncture No growth. 09/17/16 20:59 Blood Culture - Final Peripheral Venipuncture No growth. 09/17/16 22:47 Anaerobic Culture - Final Left Foot No anaerobes were recovered. 09/17/16 22:47 Wound Culture - Final Left Foot Proteus vulgaris Citrobacter freundii complex Serratia rubidaea Serology 09/21/16 09/21/16 09/20/16 Range/Units 20:25 20:25 04:07 Urine Color Yellow (Yellow) Urine Clarity Clear (Clear) Urine pH 6.0 (5.0-8.0) pH Units Ur Specific [place] > 1.030 H (1.010-1.025) Urine Protein 100 H (Neg-Trace) mg/dL Urine Glucose (UA) >=1000 H (Normal) mg/dL Urine Ketones Negative (Negative) mg/dL Urine Blood Large H (Negative) Urine Nitrite Negative (Negative) Urine Bilirubin Negative (Negative) Urine Urobilinogen Normal (Normal) mg/dL Ur Leukocyte Esterase Negative (Negative) Urine Microscopic RBC 0-3 (0-3) per hpf Urine Microscopic WBC 3-5 H (0-3) per hpf Ur Eosinophil Smear 0 (None Seen) % Ur Squamous Epith Cells Many H (None-Few) per lpf Urine Bacteria None Seen (None-Few) per hpf Hyaline Casts None Seen (None-Few) per lpf Urine Yeast Test Not Performed Ur Culture Indicated? NO (NO) Urine Creatinine 70 mg/dL Protein/Creatinin Ratio 1.26 H (0-0.20) mg/mg Urine Sodium 38.0 mEq/L Urine Total Protein 88 H (1-14) mg/dL Hepatitis A IgM Ab Nonreactive (Nonreactive) Hep Bs Antigen Nonreactive (Nonreactive) Hep B Core IgM Ab Nonreactive (Nonreactive) Hepatitis C Ab Screen Nonreactive (Nonreactive) - Impressions Impressions Retroperitoneum Ultrasound 09/22/16 15:00 IMPRESSION: No evidence of hydronephrosis bilaterally. Bilateral pleural effusions. Distended bladder. Findings are suggestive of cellular or proteinaceous debris within the bladder lumen. Suggest correlation with urinalysis. D/ / Diego Crisostomo MD / Diego Crisostomo MD Interpreting Provider: Diego Crisostomo MD Exam - Constitutional Vitals: Temp Pulse Resp BP Pulse Ox 98.1 F 93 15 140/92 94 09/23/16 11:04 09/23/16 11:15 09/23/16 11:14 09/23/16 12:11 09/23/16 12:11 General appearance: average body habitus, cooperative, no acute distress - Head Head exam: Present: atraumatic, normal inspection, normocephalic - Eye Eye exam: Present: EOMI, normal appearance, PERRL Pupils: Present: normal accommodation - ENT ENT exam: Present: mucous membranes moist - Neck Neck exam: Present: normal inspection - Respiratory Respiratory exam: Present: wheezes (Coarse expiratory wheezes throughout). Absent: rales, respiratory distress, rhonchi - Cardiovascular Cardiovascular exam: Present: RRR, +S1, +S2 - GI/Abdominal GI/Abdominal exam: Present: distended, firm, normal bowel sounds. Absent: tenderness - Extremities Exam Extremities exam: Present: pedal edema (2+ LLE, 1+ RLE), tenderness (left foot) Additional comments: Left foot edematous with erythema noted to the dorsal aspect. Dry, necrotic ulcer noted to the lateral aspect of the left foot. Foul odor noted. Toes #4 and #5 remain cyanotic with slight improvement noted to the dorsal aspect of toe #4. - Neurological Exam Neurological exam: Present: alert, oriented X3, no focal deficits - Psychiatric Psychiatric exam: Present: normal affect, normal mood - Skin Skin exam: Present: dry, intact, normal color, warm Consult Discharge Plan - Plan Referrals: Mara Kiser CNP [Primary Care Provider] - 10/04/16 4:00 pm - Attending Attestation I examined this patient and my medical decision-making was reviewed with the Resident Physician. I agree with the documented findings, disposition and treatment plan as described except to the extent set forth below.
--- NOTE | 2016-09-23 16:40 | Internal Med Progress Note ---
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 but it can be d/c later ID is on board for further abx management Had angiogram 09/21/16 with Balloon angioplasty of left anterior tibial artery with 2 mm and 3 mm diameter balloons Balloon angioplasty of left popliteal and superficial femoral artery with 4 mm diameter balloon scheduled for another debridement today by electronic lab technician may need manager intermediate IV abx (3) PAD (peripheral artery disease) Current Visit: Yes Status: Acute Assessment and plan: s/p Balloon angioplasty of left anterior tibial artery with 2 mm and 3 mm diameter balloons Balloon angioplasty of left popliteal and superficial femoral artery with 4 mm diameter balloon cont Plavix Finished Acetylcysteine for renal protection (4) Salicylate causing adverse effect in therapeutic use Current Visit: No Status: Acute Assessment and plan: resolved..no signs of overdose Qualifiers: Encounter type: initial encounter Qualified Code(s): T39.095A - Adverse effect of salicylates, initial encounter (5) Acute kidney failure Current Visit: Yes Status: Acute Assessment and plan: Improved Since pt went for angiogram - finished Acetylcystine 600mg BID x 2 days Nephro is on board Qualifiers: Qualified Code(s): N17.9 - Acute kidney failure, unspecified (6) Diabetes mellitus, insulin dependent (IDDM), controlled Current Visit: Yes Status: Acute Assessment and plan: Con ISS + Levemir 20 U QHS HbA1C 8.5 (7) Elevated liver enzymes Current Visit: Yes Status: Acute Assessment and plan: Mostly due to sepsis + chronic alcohol dependence Reviewed U/S of Liver No acute concerns.. can have MRI of Liver as an out pt once current problems stabilizes his LFT's trending down Cont monitoring avoid hepatotoxic meds (8) Alcohol dependence Current Visit: Yes Status: Chronic Assessment and plan: counseled to quit had last alcohol a week prior to hospitalization no signs of withdrawl cont close monitoring Qualifiers: Substance use status: uncomplicated Qualified Code(s): F10.20 - Alcohol dependence, uncomplicated (9) COPD (chronic obstructive pulmonary disease) Current Visit: Yes Status: Chronic Assessment and plan: Not in exacerbation cont home regimen Qualifiers: COPD type: unspecified COPD Qualified Code(s): J44.9 - Chronic obstructive pulmonary disease, unspecified (10) Hypertension Current Visit: No Status: Chronic Assessment and plan: Continue home medications. BP is stable Qualifiers: Hypertension type: essential hypertension Qualified Code(s): I10 - Essential (primary) hypertension (11) Tobacco dependence Current Visit: Yes Status: Chronic Assessment and plan: Counseled to quit smoking placed on nicotine patch (12) DVT prophylaxis Current Visit: Yes Status: Acute Assessment and plan: on Lovenox - Subjective Interval history: This is a 55 y/o M with known PMH of HTN, DM2, COPD, Chronic smoker, chronic alcohol dependent pt who recently admitted at [facility] for left foot gangrene developed after he stepped on a nail. He went back to [facility] on with worsening Left foot swelling / tenderness and 4th and 5th toe black discoloration. Pt was admitted here for further care. He was seen by electronic lab technician and performed a debridement, however his left foot cellulites unchanged. He is still c/o pain, does have swelling and erythema with black discolored left 4th and 5th toe as well as base distal 4th,5th MTP joints. He did go for angioplasty on 09/21/16. Pain is tolerable with medications. Currently on 2 lit O2 NC - Constitutional Vitals: Temp Pulse Resp BP Pulse Ox 98.1 F 93 15 140/92 92 09/23/16 11:04 09/23/16 11:15 09/23/16 16:21 09/23/16 12:11 09/23/16 16:21 General appearance: Present: A&O X 3, no acute distress, answers questions appropriately - Head Head exam: Present: atraumatic, normal inspection - Neck Neck exam general surgery: Present: supple - Respiratory Respiratory exam: Present: decreased breath sounds, rales (mild), wheezes. Absent: respiratory distress, rhonchi - Cardiovascular Cardiovascular exam: Present: RRR, +S1, +S2. Absent: diastolic murmur, gallop, rubs, systolic murmur - GI/Abdominal GI/Abdominal exam: Present: soft. Absent: distended, firm, guarding, tenderness - Extremities Exam Extremities exam: Absent: calf tenderness, pedal edema Additional comments: mild improving discoloration over Left 4th and 5th toes noticed. Still has erythema and swelling over left foot dorsal region - Psychiatric Psychiatric exam: Present: normal affect, normal mood Internal Medicine: Result - Labs CBC & Chem 7: 09/23/16 04:37 09/23/16 04:37 Labs: Short CBC 09/23/16 Range/Units 04:37 WBC 12.5 H (4.3-11.1) K/mcL Hgb 9.2 L (12.9-16.9) g/dL Hct 28.7 L (37.5-50.1) % Plt Count 459 H (140-400) K/mcL Neutrophils # 9.5 H (1.6-8.9) K/mcL BMP 09/23/16 04:37 Sodium 134 L Potassium 4.2 Chloride 101 Carbon Dioxide 28 BUN 18 Creatinine 1.01 Glucose 182 H Calcium 8.5 L - ABG Interpretation ABG results: ABG ABG pH 7.40 pH Units (7.32-7.45) 09/18/16 12:30 ABG pCO2 23 mmHg (35-45) L 09/18/16 12:30 ABG pO2 129 mmHg (85-104) H 09/18/16 12:30 ABG O2 Saturation 99 % (95-98) H 09/18/16 12:30 PT/INR, D-dimer PT 14.2 Seconds (9.4-12.1) H 09/21/16 07:58 - Impressions Impressions Retroperitoneum Ultrasound 09/22/16 15:00 IMPRESSION: No evidence of hydronephrosis bilaterally. Bilateral pleural effusions. Distended bladder. Findings are suggestive of cellular or proteinaceous debris within the bladder lumen. Suggest correlation with urinalysis. D/ / Diego Crisostomo MD / Diego Crisostomo MD Interpreting Provider: Diego Crisostomo MD Consult Discharge Plan - Plan Referrals: Rashel,Mara S, SIGNAL TESTER [Primary Care Provider] - 10/04/16 4:00 pm
--- NOTE | 2016-09-23 16:49 | Anesthesia Evaluation PreOp ---
Date of Encounter: 09/23/16 Time of Encounter: 16:47 - Past History Planned Operation: Resections #3,4,5 toes L-foot Cardiac History: HTN (maintained on Metoprolol, Norvasc, Cardura, Zestril) Pulmonary History: Smoker (1-1/2 ppd x 40yrs), COPD (maintained on Symbicort) CARPET FLOOR LAYER APPRENTICE History: Other (Anxiety/Depression maintained on Prozac) Other Medical History: Diabetes Type II (maintained on Insulin), GERD ( maintained on Zantac), Other (Gangrene L-foot this admission.) Anesthesia History: Past Anesthesia (No prior GA) Alcohol Use: heavy (6+ beers/day) Drug use: opiates, marijuana Medications and Allergies Insulin Aspart Prot/Insuln Asp [Novolog Mix 70-30 Flexpen Syrn] 0 unit SQ BID # 0 10/27/15 [History] Metoprolol [Lopressor] 50 mg PO DAILY 10/27/15 [History] Ranitidine HCl [Zantac] 150 mg PO BID PRN 08/31/16 [History] Amlodipine Besylate 10 mg PO DAILY #30 tablet 09/09/16 [Rx] Doxazosin [Cardura] 4 mg PO HS #30 tablet 09/09/16 [Rx] Magnesium Oxide [Mag-Ox] 400 mg PO BID #14 tablet 09/09/16 [Rx] Ibuprofen 800 mg PO TID PRN #15 tablet 09/16/16 [Rx] Aspirin [Ecotrin] 325 mg PO DAILY 09/17/16 [History] FLUoxetine HCl [PROzac] 20 mg PO DAILY 09/17/16 [History] Lisinopril [Zestril] 20 mg PO DAILY 09/17/16 [History] Multivit-Min/Iron Fum/Folic AC [Itxnl-Glvxqwl-Kivakhdy Tablet] 1 tab PO DAILY [History] Allergies No Known Allergies Allergy (Verified 10/27/15 15:30) - Meds/Allergy Pre-op Review Medications Reviewed: Yes Allergies Reviewed: Yes Beta Blockers on Current Med List: Yes (Metoprolol) If Beta Blockers taken, Date/Time (Last Dose taken): 09/23/2016 @ 0852 Anesthesia Results - Labs 09/23/16 04:37 09/23/16 04:37 Laboratory Tests 09/19/16 09/21/1609/22/17 01:16 07:58 06:45 PT 14.2 H INR 1.3 APTT 33.1 Est GFR (Non-Af Amer) Glucose Est Mean Plasma Glucose Hemoglobin A1c Calcium Phosphorus 2.3 Magnesium 1.5 L 09/23/16 09/23/16 04:37 04:37 PT INR APTT Est GFR (Non-Af Amer) > 60 Glucose 182 H Est Mean Plasma Glucose 166 Hemoglobin A1c 7.4 H Calcium 8.5 L Phosphorus Magnesium Laboratory Results Impressions Chest X-Ray 09/18/16 11:40 IMPRESSION: New 3.4 cm airspace opacity in the right lung suspicious for pneumonia. D/ / Geena Brown MD / Geena Brown MD Interpreting Provider: Geena Brown MD Abdomen Ultrasound 09/20/16 11:00 IMPRESSION: 1. The common bile duct is just above the upper limits of normal in diameter. No gallstones, gallbladder wall thickening or intrahepatic biliary dilation identified. MRCP could be considered for further evaluation if clinically warranted. 2. Slightly heterogeneous echotexture of the liver is nonspecific. This could be further evaluated by liver MRI if clinically warranted. 3. Incidental hemangioma in the left hepatic lobe. 4. Incidental small right-sided pleural effusion. D/ / Abel Garcia MD / Abel Garcia MD Interpreting Provider: Abel Gracia MD Retroperitoneum Ultrasound 09/22/16 15:00 IMPRESSION: No evidence of hydronephrosis bilaterally. Bilateral pleural effusions. Distended bladder. Findings are suggestive of cellular or proteinaceous debris within the bladder lumen. Suggest correlation with urinalysis. D/ / Diego Crisostomo MD / Diego Crisostomo MD Interpreting Provider: Diego Crisostomo MD - Imaging EKG: image reviewed (104bpm ST, possible LAE, moderate ST depression) Anesthesia Exam Vital Signs Temp Pulse Resp BP Pulse Ox 09/23/16 16:40 93 09/23/16 16:21 15 92 09/23/16 14:54 92 09/23/16 12:11 140/92 94 09/23/16 11:15 93 09/23/16 11:14 15 97 09/23/16 11:04 98.1 F 93 15 173/89 97 09/23/16 08:52 96 09/23/16 08:16 98.4 F 103 19 144/87 96 09/23/16 07:50 19 98 09/23/16 07:30 98.0 F 90 19 155/79 98 09/23/16 05:07 14 98 09/23/16 04:22 98.7 F 92 135/75 97 09/23/16 04:20 89 09/22/16 23:42 15 139/114 97 09/22/16 23:40 95 09/22/16 23:24 98.4 F 91 139/114 97 09/22/16 20:45 105 09/22/16 20:25 15 100 09/22/16 19:39 98.1 F 101 18 159/76 98 09/22/16 17:22 104 98 Intake and Output 09/23/16 09/23/16 09/23/16 07:59 15:59 23:59 Intake Total 100 / 100 130 / 130 Output Total 850 / 850 650 / 650 Balance -750 / -750 130 / 130 -650 / -650 Intake: IV Fluids 100 / 100 100 / 100 Zosyn 3.375 GM In 100 / 100 100 / 100 Dextrose 5% (Minibag+) 100 ML 100 ML @ 25 mls/hr IVPB Q8HR [facility] Rx#: [id number] Oral 30 / 30 Output: Urine 850 / 850 650 / 650 Other: Stool Size Moderate Stool Consistency soft Stool Color Brown # Bowel Movements 1 Weight 73.936 kg Blood Glucose* 156 180 Patient Weight 09/23/16 23:59 Weight 73.936 kg Height: 5'4" Weight: 163# BMI = 28 NPO (# of Hours): MNoc - HEENT Pupil (Motor): Pupils equal, EOMI Mallampati: II Teeth: Normal, Missing, Edentulous (Blackened broken off upper front teeth, otherwise upper edentulous), Poor dentition Oral Opening: Greater than 3 - 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 Deyvi Rodriguez MD
--- NOTE | 2016-09-23 16:49 | Vascular/Endovas Progress Note ---
Date of Encounter: 09/23/16 Time of Encounter: 16:46 - Assessment and plan (1) PAD (peripheral artery disease) Current Visit: Yes Status: Acute Patent left lower extremity endovascular intervention. Perfusion of left foot is improved. Patient's white blood cell count and hemoglobin are stable. Serum creatinine is stable. Patient is overall clinically stable following intervention. Further debridement of foot is pending. (2) COPD (chronic obstructive pulmonary disease) Current Visit: Yes Status: Chronic Patient under medical treatment for chronic COPD Qualifiers: COPD type: unspecified COPD Qualified Code(s): J44.9 - Chronic obstructive pulmonary disease, unspecified (3) Cellulitis Current Visit: Yes Status: Acute Left foot cellulitis and probable deeper tissue involvement. This will be followed by podiatry. Qualifiers: Site of cellulitis: extremity Site of cellulitis of extremity: lower extremity Laterality: left Qualified Code(s): L03.116 - Cellulitis of left lower limb - Subjective Interval history: Patient is postprocedure day #2 following Angiogram and angioplasty performed Tuesday. Patient complains of pain left lower extremity but no other significant change. Pt for OR today for left foot debridement. Vital Signs, Last 4 Hours Resp Pulse Ox 09/23/16 16:21 15 92 09/23/16 14:54 92 - Physical Examination Vascular: Present: Other (+ left DP. PT, and Peroneal doppler signals. Gangrene of distal lateral foot and toes 4 and 5.) Results 09/23/16 04:37 09/23/16 04:37 Lab Results, Last 24 hours 09/23/16 09/23/16 04:37 04:37 WBC 12.5 H Hgb 9.2 L Hct 28.7 L Plt Count 459 H Sodium 134 L Potassium 4.2 Chloride 101 Carbon Dioxide 28 BUN 18 Creatinine 1.01 Glucose 182 H Calcium 8.5 L Consult Discharge Plan - Plan Referrals: Mara Kiser, SECURITY INTELLIGENCE ANALYST [Primary Care Provider] - 10/04/16 4:00 pm
[2016-09-23] MEDS ORDERED: Vancomycin 750 MG in D5% in Water 250 ML IVPB SCH (17:00)
[2016-09-23] MEDS ORDERED: Metoclopramide 10 MG/2 ML VIAL ONE (17:05)
[2016-09-23] MEDS ORDERED: Acetaminophen IV 1,000 MG/100 ML INFUS..BTL ONE (17:05)
[2016-09-23] MEDS ORDERED: Famotidine 20 MG/2 ML VIAL ONE (17:06)
[2016-09-23] MEDS ORDERED: *HR* Midazolam HCl 2 MG/2 ML VIAL ONE (17:08)
[2016-09-23] MEDS ORDERED: *HR* Propofol 200 MG/20 ML VIAL IVP ONE (17:08)
[2016-09-23] MEDS ORDERED: Lidocaine -MPF 2% 2 ML VIAL ONE (17:08)
[2016-09-23] MEDS ORDERED: *HR* FentaNYL (PF) 100 MCG/2 ML VIAL ONE (17:08)
[2016-09-23] MEDS ORDERED: Bupivacaine/Clonidine Syringe 1 EACH SYRINGE ONE (17:10)
[2016-09-23] MEDS ORDERED: *HR* Promethazine 25 MG/ML VIAL IVP PRN (17:22)
[2016-09-23] MEDS ORDERED: *HR* Labetalol 20 MG/4 ML SYRINGE IVP PRN (17:22)
[2016-09-23] MEDS ORDERED: *HR* HYDROmorphone (PF) 1 MG/ML SYRINGE IVP PRN (17:22)
[2016-09-23] MEDS ORDERED: Dexamethasone 4 MG/ML VIAL ONE (17:30)
[2016-09-23] MEDS ORDERED: Ondansetron 4 MG/2 ML VIAL ONE (17:30)
--- NOTE | 2016-09-23 17:47 | Podiatry Progress Note ---
Date of Encounter: 09/23/16 Time of Encounter: 15:44 - Assessment and Plan (1) Cellulitis Current Visit: No Status: Acute The patient was instructed that we need to remove the ischemic tissue from the lateral aspect of his foot. Patient was instructed that this would be a staged procedure. Patient was instructed that we will remove the ischemic portions of his foot and use a wound VAC for a period of time after which we will close the site if possible or perform a transmetatarsal amputation if needed for closure. The patient was instructed that his tissue could turn ischemic and he might need a more proximal amputation at a later time. Patient was agreeable to proceed with surgical intervention.Patient was informed of the risks and complications of surgery. These may include but are not limited to the following ; nerve damage, numbness, tingling, RSD/CRPS, loss of motor function, loss of toe, loss of limb, loss of life, ischemia, wound healing issues, infection, scarring, keloid formation, continued pain, arthritis, non-union, mal-union, prominent hardware, displaced hardware, reaction to hardware, the need to remove hardware, bruising, continued limp, the need for future surgery, over correction, under correction, chronic swelling, the need for physical therapy, stiffness of joints, ulceration, slow healing, wound dehiscence, reaction to implant, reaction to sutures. The patient was informed of the possible conservative treatments available which may include but are not limited to the following: Orthotics, bracing, non -weight bearing, physical therapy, padding, taping, steroid injections, NSAIDS, casting. The patient was given the option to seek a second opinion. It was explained that surgery is an art and not an exact science therefore results cannot be guaranteed. All the patients questions and concerns were addressed. Patient agrees to have the surgery despite the possible risks and complications. Absolutely no guarantees were given or implied. Qualifiers: Site of cellulitis: extremity Site of cellulitis of extremity: lower extremity Laterality: left Qualified Code(s): L03.116 - Cellulitis of left lower limb Subjective Principal diagnosis: Left foot wound with PVD and recent ANAI Interval history: Patient agrees with surgery and we will proceed with removing the ischemic tissue from his left foot. Objective - Vital Signs Vital Signs: Vital Signs Temp Pulse Resp BP Pulse Ox 09/23/16 16:40 93 09/23/16 16:21 15 92 09/23/16 14:54 92 09/23/16 12:11 140/92 94 09/23/16 11:15 93 09/23/16 11:14 15 97 09/23/16 11:04 98.1 F 93 15 173/89 97 09/23/16 08:52 96 09/23/16 08:16 98.4 F 103 19 144/87 96 09/23/16 07:50 19 98 09/23/16 07:30 98.0 F 90 19 155/79 98 09/23/16 05:07 14 98 09/23/16 04:22 98.7 F 92 135/75 97 09/23/16 04:20 89 09/22/16 23:42 15 139/114 97 09/22/16 23:40 95 09/22/16 23:24 98.4 F 91 139/114 97 09/22/16 20:45 105 09/22/16 20:25 15 100 09/22/16 19:39 98.1 F 101 18 159/76 98 Intake and Output 09/23/16 09/23/16 09/23/16 07:59 15:59 23:59 Intake Total 100 / 100 130 / 130 Output Total 850 / 850 650 / 650 Balance -750 / -750 130 / 130 -650 / -650 Intake: IV Fluids 100 / 100 100 / 100 Zosyn 3.375 GM In 100 / 100 100 / 100 Dextrose 5% (Minibag+) 100 ML 100 ML @ 25 mls/hr IVPB Q8HR [facility] Rx#: [id number] Oral 30 / 30 Output: Urine 850 / 850 650 / 650 Other: Stool Size Moderate Stool Consistency soft Stool Color Brown # Bowel Movements 1 Weight 73.936 kg Blood Glucose* 156 180 Patient Weight 09/23/16 23:59 Weight 73.936 kg - Exam Exam: Consistent with prior exam except more ischemic than before. There are changes noted to the viable skin consistent with a bypass performed. - Lab Result Diagrams: 09/23/16 04:37 09/23/16 04:37 Labs: Abnormal lab results WBC 12.5 K/mcL (4.3-11.1) H 09/23/16 04:37 RBC 2.95 M/mcL (4.19-5.50) L 09/23/16 04:37 Hgb 9.2 g/dL (12.9-16.9) L 09/23/16 04:37 Hct 28.7 % (37.5-50.1) L 09/23/16 04:37 RDW 15.4 % (11.5-14.5) H 09/23/16 04:37 Plt Count 459 K/mcL (140-400) H 09/23/16 04:37 MPV 8.8 fL (9.4-12.4) L 09/23/16 04:37 Neutrophils # 9.5 K/mcL (1.6-8.9) H 09/23/16 04:37 ESR 108 mm/hr (0-10) H 09/23/16 04:37 PT 14.2 Seconds (9.4-12.1) H 09/21/16 07:58 ABG pCO2 23 mmHg (35-45) L 09/18/16 12:30 ABG pO2 129 mmHg (85-104) H 09/18/16 12:30 ABG HCO3 14.2 mEQ/L (21-27) L 09/18/16 12:30 ABG Total CO2 14.9 mEq/L (20-26) L 09/18/16 12:30 ABG O2 Saturation 99 % (95-98) H 09/18/16 12:30 ABG Base Excess -9.4 mEq/L (-2.0 to 3.0) L 09/18/16 12:30 Sodium 134 mEq/L (136-145) L 09/23/16 04:37 Glucose 182 mg/dL (70-99) H 09/23/16 04:37 POC Glucose 115 (58-89) H 09/22/16 23:29 Hemoglobin A1c 7.4 % (-5.6) H 09/23/16 04:37 Calcium 8.5 mg/dL (8.6-10.8) L 09/23/16 04:37 Magnesium 1.5 mg/dL (1.6-2.6) L 09/22/16 06:45 AST 151 Units/L (5-34) H 09/21/16 06:01 ALT 110 Units/L (0-55) H 09/21/16 06:01 Alkaline Phosphatase 319 Units/L (38-126) H 09/21/16 06:01 Creatine Kinase 3773 Units/L (30-200) H 09/21/16 06:01 C-Reactive Protein 133 mg/L (Less than 5) H 09/23/16 04:37 Serum Total Protein 5.8 g/dL (6.0-8.3) L 09/21/16 06:01 Albumin 2.0 g/dL (3.5-5.0) L 09/21/16 06:01 Globulin 3.8 g/dL (2.4-3.5) H 09/21/16 06:01 Albumin/Globulin Ratio 0.5 (1.1-2.2) L 09/21/16 06:01 Ur Specific [place] > 1.030 (1.010-1.025) H 09/21/16 20:25 Urine Protein 100 mg/dL (Neg-Trace) H 09/21/16 20:25 Urine Glucose (UA) >=1000 mg/dL (Normal) H 09/21/16 20:25 Urine Blood Large (Negative) H 09/21/16 20:25 Urine Microscopic WBC 3-5 per hpf (0-3) H 09/21/16 20:25 Ur Squamous Epith Cells Many per lpf (None-Few) H 09/21/16 20:25 Protein/Creatinin Ratio 1.26 mg/mg (0-0.20) H 09/21/16 20:25 Urine Total Protein 88 mg/dL (1-14) H 09/21/16 20:25 Vancomycin Trough 9.2 mcg/mL (10-20) L 09/23/16 15:52 Microbiology, Last 48 Hours 09/17/16 20:52 Blood Culture - Final Peripheral Venipuncture No growth. 09/17/16 20:59 Blood Culture - Final Peripheral Venipuncture No growth. 09/17/16 22:47 Anaerobic Culture - Final Left Foot No anaerobes were recovered. Consult Discharge Plan - Plan Referrals: Mara Kiser CNP [Primary Care Provider] - 10/04/16 4:00 pm
[2016-09-23] MEDS ORDERED: Insulin Human Regular 10 UNIT in 0.9 % Sodium Chloride 10 ML IV ONE (18:43)
--- NOTE | 2016-09-23 19:50 | Anesthesia Evaluation Post Op ---
Date of Encounter: 09/23/16 Time of Encounter: 19:48 - Vital Signs Vital Signs: Vital Signs/O2 Sat/Glucose, Most Recent Temp Pulse Resp BP Pulse Ox 98.2 F 94 14 124/66 97 09/23/16 19:32 09/23/16 19:32 09/23/16 19:32 09/23/16 19:32 09/23/16 19:32 Blood Glucose* 373 - Lungs Lungs: Clear Ascult./Percussion - Airway Airway: Non-obstructed - Cardiovascular Regular Rate - Mental Status Mental Status: Alert & Oriented, Answers Appropriately - Pain Pain Scale: 0 Pain Scale used: Numeric (1 - 10) - Nausea Vomiting Nausea Vomiting: Not Present - Hydration Hydration: NPO, Has not voided Notes: 09/23/16 19:48 Contacted hospitalist in regards to patients blood sugar and hospitalist will follow it on the floor. - Discharge PostOp Status: Transfer Patient to floor
[2016-09-23] MEDS: Insulin DETEMIR 100 UNIT/ML X5UNITS SQ SCH (21:01)
--- NOTE | 2016-09-23 22:30 | Operative Note ---
Date of procedure: 09/23/16 Pre-op diagnosis: Left foot infection with ischemia 4th and 5th digit/metatarsal Post-op diagnosis: same Procedure: Incision and drainage of left foot infection, resection of 4th and 5th metatarsal with amputation of digits 4,5. Bone biopsy. application of wound vac. Anest[place]: [facility] [place] Surgeon: Pablito Shabazz Estimated blood loss (cc): 1 Specimen: bone cultures sent for culture and sensitivity Condition: stable Disposition: PACU Procedure in Detail: The patient was administered IV antibiotics. The patient was transported to the operative room and placed on operating table. Following anesthesia the extremity was scrubbed prepped and draped in the usual aseptic fashion. A timeout was performed. An incision was made and deepened through subcutaneous tissue with care taken to identify and retract all vital neurovascular structures. The incision encompassed the area of ischemic tissue which included the fourth and fifth metatarsals. After the initial incision the purulence was drained which was noted to be minimal. Bone biopsy was performed and cultures were obtained., After the initial incision and drainage amputation of digits 4 and 5 was performed. The fourth and fifth metatarsals were also resected due to the significant amounts of ischemic tissue. The resection was a partial resection extending to the base of the fourth and fifth metatarsals but not the entire metatarsals. The incision site was irrigated with copious amounts of normal saline and a wound VAC was applied. The wound in entirety measured approximately 7 cm in length and 5 cm in width and was full-thickness in nature and the tissue excised included bone, fascia, subcutaneous, epidermal, and tendon. After the wound VAC was applied a light dressing of Kerlix was also applied. The patient tolerated the procedure and anesthesia well and was transported to the recovery room with vital signs stable and vascular status intact to both feet. The patient will be admitted to the floor per anesthesia. The patient will keep the dressings clean, dry, intact until the follow-up appointment in 1- 2 weeks. The patient will minimize weightbearing. The patient will likely need a few weeks of IV antibiotics per infectious disease. The wound VAC will likely need to remain intact for a few weeks until a definitive type of procedure could be performed or we will wait for healing. Most likely will need to wait until the wound demarcates and consider performing a transmetatarsal amputation. The transmetatarsal amputation may or may not work, it depends on the patient's vascularity and how well it could heal. If the transmetatarsal amputation is ineffective patient will need to consider possible below the knee amputation. The patient related understanding.
[2016-09-24] MEDS: Piperacillin/Tazobactam 3.375 GM in D5% in Water (Mini-Bag+) 100 ML IVPB SCH ×4 (00:11→23:54)
[2016-09-24] MEDS: *HR* HYDROcodone/Acet 5/325 mg TABLET PO PRN ×3 (00:47→15:49)
[2016-09-24] MEDS: *HR* OxyCODONE/APAP 5/325 TABLET PO PRN ×3 (03:37→20:10)
[2016-09-24] MEDS: Ipratropium/Albuterol Neb 3 ML IH SCH ×6 (04:27→23:09)
[2016-09-24] MEDS ORDERED: *HR* HYDROmorphone (PF) 1 MG/ML SYRINGE IVP ONE (04:52)
[2016-09-24] MEDS: *HR* Enoxaparin 40 MG/0.4 ML SYRINGE SQ SCH (05:08)
[2016-09-24 06:26] LABS: Basophils % 0.1 %; Hematocrit 28.8 % (37.5-50.1); Hemoglobin 9.3 g/dL (12.9-16.9); Immature Granulocytes % 1.1 % (0-4); Lymphocytes % 6.3 %; Mean Corpuscular HGB Conc 32.3 g/dL (31.6-35.5); Mean Corpuscular Hemoglobin 31.7 pg (28.0-33.3); Mean Corpuscular Volume 98.3 fL (83.0-100.0); Mean Platelet Volume 8.8 fL (9.4-12.4); Monocytes # 1.1 K/mcL (0.0-1.3); Platelet Count 486 K/mcL (140-400); Red Blood Count 2.93 M/mcL (4.19-5.50); Segmented Neutrophils % 85.5 %
[2016-09-24 06:41] LABS: BUN/Creatinine Ratio 23 (6-26); Blood Urea Nitrogen 27 mg/dL (8-26); Calcium 8.6 mg/dL (8.6-10.8); Carbon Dioxide 26 mEq/L (19-29); Chloride 99 mEq/L (98-109); Glucose 338 mg/dL (70-99); Magnesium 1.7 mg/dL (1.6-2.6); Osmolality,Calculated 292 (280-300); Sodium 132 mEq/L (136-145); eGFR For African Americans > 60 (> 60); eGFR For Non-African Americans > 60 (> 60)
[2016-09-24] MEDS: Insulin LISPRO 300 UNITS/3 ML VIAL SQ SCH ×4 (08:19→20:57)
[2016-09-24] MEDS: Vancomycin 750 MG in D5% in Water 250 ML IVPB SCH ×2 (08:22→20:56)
[2016-09-24] MEDS: FLUoxetine 20 MG CAPSULE PO SCH (08:23)
[2016-09-24] MEDS: MethylPREDNISolone 40 MG/ML VIAL IVP SCH (08:23)
[2016-09-24] MEDS: Lactobacillus 1 EACH CAP.SPRINK PO SCH (08:23)
--- NOTE | 2016-09-24 10:35 | Infectious Disease Progress No ---
Date of Encounter: 09/24/16 Time of Encounter: 10:33 - Assessment and Plan (1) Sepsis Current Visit: Yes Status: Resolved Severe sepsis: The patient had two SIRS criteria plus abnormal LFTs and ANAI on admission. Likely secondary to left foot infection. Improved. WBC back up today, but likely reactive from surgery. He continues to have intermittent tachycardia. He has remained afebrile. LFTs and ANAI are improving. Blood cultures drawn 09/17/16 are NGTD x 2 sets. Qualifiers: Sepsis type: sepsis due to unspecified organism Qualified Code(s): A41.9 - Sepsis, unspecified organism (2) Left foot infection Current Visit: Yes Status: Acute Location: Left lateral foot at level of 5th MTP joint. Causative organism: Citrobacter freundii, Proteus vulgaris, and Serratia rubidaea. Concern for anaerobes as well due to soft tissue gas. Likely secondary to previous nail puncture wound. Podiatry consulted and following. Status post bedside bedridement by Dr. Shabazz. Wound probes to bone, but no evidence of necrotizing fasciitis. Status post I & D with amputation of toes #4 & #5 with resection of metatarsals #4 & #5 with bone biopsy and application of wound VAC 09/23/[address] Shabazz. Cultures and pathology pending. Called lab and histology and requested to add fungal cultures and GMS stain. ESR and CRP are markedly elevated. Given that the wound probes to bone, will need to treat as osteomyelitis regardless of bone biopsy results. Continue Vancomycin IV for now. Pharmacy to dose. Goal trough ~15. Continue Zosyn 3.375 grams IV Q8H for now. Plan of de-escalating once we have intra-op cultures back. Duration of treatment depends on the clinical picture. Monitor renal function and for drug toxicity and dose-adjust antibiotics. (3) Gangrene of left foot Current Visit: Yes Status: Acute Likely multifactorial: infectious + ischemia. Podiatry consulted and following. Status post bedside bedridement by Dr. Shabazz. Wound probes to bone, but no evidence of necrotizing fasciitis. ABIs show moderate bilateral occlusive disease. Vascular surgery consulted. Status post Abdominal aortogram, Aortogram with runoff, Balloon angioplasty of left anterior tibial artery with 2 mm and 3 mm diameter balloons, and Balloon angioplasty of left popliteal and superficial femoral artery with 4 mm diameter balloon 09/21/[address] Casey. Per the note, the patient will require additional intervention as an outpatient for right superficial femoral artery occlusion and tibial artery occlusions bilaterally. Status post I & D with amputation of toes #4 and 5, resection of metatarsals #4 and 5, bone biopsy, and application of wound VAC 09/23/[address] Shabazz. Will review full operative report once available. Wound care and activity restrictions per the podiatry team. Antibiotics as recommended above. (4) Cellulitis Current Visit: Yes Status: Acute Location: Left foot. Causative organism likely P. vulgaris, Citrobacter freundii, and Serratia rubidaea. Likely secondary to left foot puncture wound. X-ray of the left foot shows persistent soft tissue gas, but no osteomyelitis. Continue antibiotics as above. Qualifiers: Site of cellulitis: extremity Site of cellulitis of extremity: lower extremity Laterality: left Qualified Code(s): L03.116 - Cellulitis of left lower limb (5) Pneumonia Current Visit: Yes Status: Acute Location: Right lower lobe. Causative organism unclear. Given recent AMS and patient's ETOH use, concern for aspiration. Continue Zosyn as above. Continue Vancomycin IV. Pharmacy to dose. Goal trough approximately 15. Duration of treatment depends on the clinical picture. Monitor renal function and for drug toxicity and dose-adjust antibiotics. Consider repeating CXR in the AM. Qualifiers: Pneumonia type: due to unspecified organism Laterality: right Lung location: unspecified part of lung Qualified Code(s): J18.9 - Pneumonia, unspecified organism (6) ANAI (acute kidney injury) Current Visit: Yes Status: Resolved Likely secondary to sepsis. Resolved. Continue to trend. Nephrology consulted and following. Avoid nephrotoxins as able and dose-adjust antibiotics. (7) Anemia Current Visit: Yes Status: Acute Etiology unclear. No active bleeding noted. Improved. Further workup and management per the primary team. Qualifiers: Anemia type: unspecified type Qualified Code(s): D64.9 - Anemia, unspecified (8) Elevated liver enzymes Current Visit: Yes Status: Acute Likely secondary to aspirin over-use. Improved. Continue to trend. (9) Metabolic acidosis Current Visit: Yes Status: Resolved (10) PAD (peripheral artery disease) Current Visit: Yes Status: Acute ABIs revealed bilateral moderate occlusive disease. Vascular surgery consulted. Status post Abdominal aortogram, Aortogram with runoff, Balloon angioplasty of left anterior tibial artery with 2 mm and 3 mm diameter balloons, and Balloon angioplasty of left popliteal and superficial femoral artery with 4 mm diameter balloon 09/21/[address] Casey. Per the note, the patient will require additional intervention as an outpatient for right superficial femoral artery occlusion and tibial artery occlusions bilaterally. (11) Alcohol dependence Current Visit: Yes Status: Chronic Patient reports drinking 4-6 beers per day. Continue CIWA per primary team's recommendations. Qualifiers: Substance use status: uncomplicated Qualified Code(s): F10.20 - Alcohol dependence, uncomplicated (12) Tobacco dependence Current Visit: Yes Status: Chronic (13) COPD (chronic obstructive pulmonary disease) Current Visit: Yes Status: Chronic Qualifiers: COPD type: unspecified COPD Qualified Code(s): J44.9 - Chronic obstructive pulmonary disease, unspecified (14) Diabetes mellitus, insulin dependent (IDDM), controlled Current Visit: Yes Status: Acute HgbA1C 7.4%. Recommend aggressive glucose monitoring and control to promote wound healing and prevent re-infection. - Subjective Interval history: Patient seen and examined. No acute events noted overnight. Status post I & D left lateral foot with amputation of digits 4 & 5, resection of digits 4 & 5, bone biopsy, and application of wound vac. Patient resting quietly in bed. Complains of pain in the left foot/leg, worse since surgery. Denies fevers, chills, or rigors. Denies chest pain, shortness of breath, or cough. Denies nausea, vomiting, diarrhea, or constipation. Denies urinary complaints. Denies abdominal pain. States he just finished breakfast. Denies oral thrush or new skin lesions. Infect Dis PN-Objective Data - Labs CBC & Chem 7: 09/24/16 05:40 09/24/16 05:40 Labs: Laboratory Results - last 24 hr 09/23/16 09/23/16 09/23/16 07:39 11:13 15:52 WBC RBC Hgb Hct MCV MCH MCHC RDW Plt Count MPV Immature Gran % Seg Neutrophils % Lymphocytes % Monocytes % Eosinophils % Basophils % Neutrophils # Lymphocytes # Monocytes # Eosinophils # Basophils # Sodium Potassium Chloride Carbon Dioxide BUN Creatinine Est GFR ( Amer) Est GFR (Non-Af Amer) BUN/Creatinine Ratio Glucose POC Glucose 156 H 180 H Calculated Osmolality Calcium Magnesium Vancomycin Trough 9.2 L 09/23/16 09/24/16 09/24/16 20:40 05:40 05:40 WBC 16.3 H RBC 2.93 L Hgb 9.3 L Hct 28.8 L MCV 98.3 MCH 31.7 MCHC 32.3 RDW 15.0 H Plt Count 486 H MPV 8.8 L Immature Gran % 1.1 Seg Neutrophils % 85.5 Lymphocytes % 6.3 Monocytes % 7.0 Eosinophils % 0.0 Basophils % 0.1 Neutrophils # 14.0 H Lymphocytes # 1.0 Monocytes # 1.1 Eosinophils # 0.0 Basophils # 0.0 Sodium 132 L Potassium 5.0 H Chloride 99 Carbon Dioxide 26 BUN 27 H Creatinine 1.18 Est GFR ( Amer) > 60 Est GFR (Non-Af Amer) > 60 BUN/Creatinine Ratio 23 Glucose 338 H POC Glucose 383 H Calculated Osmolality 292 Calcium 8.6 Magnesium 1.7 Vancomycin Trough Cultures: Cultures 09/17/16 20:52 Blood Culture - Final Peripheral Venipuncture No growth. 09/17/16 20:59 Blood Culture - Final Peripheral Venipuncture No growth. 09/17/16 22:47 Anaerobic Culture - Final Left Foot No anaerobes were recovered. 09/17/16 22:47 Wound Culture - Final Left Foot Proteus vulgaris Citrobacter freundii complex Serratia rubidaea Serology 09/21/16 09/21/16 09/20/16 Range/Units 20:25 20:25 04:07 Urine Color Yellow (Yellow) Urine Clarity Clear (Clear) Urine pH 6.0 (5.0-8.0) pH Units Ur Specific [place] > 1.030 H (1.010-1.025) Urine Protein 100 H (Neg-Trace) mg/dL Urine Glucose (UA) >=1000 H (Normal) mg/dL Urine Ketones Negative (Negative) mg/dL Urine Blood Large H (Negative) Urine Nitrite Negative (Negative) Urine Bilirubin Negative (Negative) Urine Urobilinogen Normal (Normal) mg/dL Ur Leukocyte Esterase Negative (Negative) Urine Microscopic RBC 0-3 (0-3) per hpf Urine Microscopic WBC 3-5 H (0-3) per hpf Ur Eosinophil Smear 0 (None Seen) % Ur Squamous Epith Cells Many H (None-Few) per lpf Urine Bacteria None Seen (None-Few) per hpf Hyaline Casts None Seen (None-Few) per lpf Urine Yeast Test Not Performed Ur Culture Indicated? NO (NO) Urine Creatinine 70 mg/dL Protein/Creatinin Ratio 1.26 H (0-0.20) mg/mg Urine Sodium 38.0 mEq/L Urine Total Protein 88 H (1-14) mg/dL Hepatitis A IgM Ab Nonreactive (Nonreactive) Hep Bs Antigen Nonreactive (Nonreactive) Hep B Core IgM Ab Nonreactive (Nonreactive) Hepatitis C Ab Screen Nonreactive (Nonreactive) Exam - Constitutional Vitals: Temp Pulse Resp BP Pulse Ox 98.2 F 100 20 123/85 100 09/24/16 07:36 09/24/16 08:41 09/24/16 07:36 09/24/16 07:36 09/24/16 07:36 General appearance: average body habitus, cooperative, no acute distress - Head Head exam: Present: atraumatic, normal inspection, normocephalic - Eye Eye exam: Present: EOMI, normal appearance, PERRL Pupils: Present: normal accommodation - ENT ENT exam: Present: mucous membranes moist - Neck Neck exam: Present: normal inspection - Respiratory Respiratory exam: Present: CTAB. Absent: rales, respiratory distress, rhonchi, wheezes - Cardiovascular Cardiovascular exam: Present: RRR, +S1, +S2 - GI/Abdominal GI/Abdominal exam: Present: normal bowel sounds, soft. Absent: distended, tenderness - Extremities Exam Extremities exam: Present: pedal edema (2+ LLE, 1+ RLE), tenderness (left foot, left lower leg) Additional comments: Left foot surgical site with wound VAC dressing intact and sponge well- compressed. Unable to assess the wound bed. Small amount of sanguinous drainage noted in the wound VAC canister. Erythema noted of the skin surrounding the surgical site. Mild erythema noted up to the middle of the calf. - Neurological Exam Neurological exam: Present: alert, oriented X3, no focal deficits - Psychiatric Psychiatric exam: Present: normal affect, normal mood - Skin Skin exam: Present: dry, intact, normal color, warm - VTE Documentation of Mechanical Device: Intermittent pneumatic compression device Consult Discharge Plan - Plan Referrals: Mara Kiser FLANGE TURNER [Primary Care Provider] - 10/04/16 4:00 pm - Attending Attestation I examined this patient and my medical decision-making was reviewed with the Resident Physician. I agree with the documented findings, disposition and treatment plan as described except to the extent set forth below.
--- NOTE | 2016-09-24 11:15 | Internal Med Progress Note ---
Date of Encounter: 09/24/16 Time of Encounter: 11:13 - Assessment and plan (1) Gangrene of left foot Current Visit: Yes Status: Acute Assessment and plan: Had Incision and drainage of left foot infection, resection of 4th and 5th metatarsal with amputation of digits 4,5. Bone biopsy - POD #1 application of wound vac + Wound cx from is growing Proterus, Serratia, Citrobacter - all of them sensitive to Zosyn will follow up on tissues cx from 09/23/16 debridement Since he had h/o MRSA will cont Vanco for now.. but it can be d/c later ID is on board for further abx management may need salesperson meats IV abx (2) Sepsis Current Visit: Yes Status: Resolved Assessment and plan: Due to Left foot gangrenous cellulites improving Qualifiers: Sepsis type: sepsis due to unspecified organism Qualified Code(s): A41.9 - Sepsis, unspecified organism (3) PAD (peripheral artery disease) Current Visit: Yes Status: Acute Assessment and plan: s/p Balloon angioplasty of left anterior tibial artery with 2 mm and 3 mm diameter balloons Balloon angioplasty of left popliteal and superficial femoral artery with 4 mm diameter balloon cont Plavix Finished Acetyl cysteine for renal protection (4) Salicylate causing adverse effect in therapeutic use Current Visit: No Status: Acute Assessment and plan: resolved..no signs of overdose Qualifiers: Encounter type: initial encounter Qualified Code(s): T39.095A - Adverse effect of salicylates, initial encounter (5) Acute kidney failure Current Visit: Yes Status: Acute Assessment and plan: Improved Since pt went for angiogram - finished Acetylcystine 600mg BID x 2 days Nephro is on board Qualifiers: Qualified Code(s): N17.9 - Acute kidney failure, unspecified (6) Diabetes mellitus, insulin dependent (IDDM), controlled Current Visit: Yes Status: Acute Assessment and plan: Con ISS + Levemir 20 U QHS HbA1C 8.5 (7) Elevated liver enzymes Current Visit: Yes Status: Acute Assessment and plan: Mostly due to sepsis + chronic alcohol dependence Reviewed U/S of Liver No acute concerns.. can have MRI of Liver as an out pt once current problems stabilizes his LFT's trending down Cont monitoring avoid hepatotoxic meds (8) Alcohol dependence Current Visit: Yes Status: Chronic Assessment and plan: counseled to quit had last alcohol a week prior to hospitalization no signs of withdrawl cont close monitoring Qualifiers: Substance use status: uncomplicated Qualified Code(s): F10.20 - Alcohol dependence, uncomplicated (9) COPD (chronic obstructive pulmonary disease) Current Visit: Yes Status: Chronic Assessment and plan: Not in exacerbation cont home regimen Qualifiers: COPD type: unspecified COPD Qualified Code(s): J44.9 - Chronic obstructive pulmonary disease, unspecified (10) Hypertension Current Visit: No Status: Chronic Assessment and plan: Continue home medications. BP is stable Qualifiers: Hypertension type: essential hypertension Qualified Code(s): I10 - Essential (primary) hypertension (11) Tobacco dependence Current Visit: Yes Status: Chronic Assessment and plan: Counseled to quit smoking placed on nicotine patch (12) DVT prophylaxis Current Visit: Yes Status: Acute Assessment and plan: on Lovenox - Subjective Interval history: This is a 55 y/o M with known PMH of HTN, DM2, COPD, Chronic smoker, chronic alcohol dependent pt who recently admitted at [facility] for left foot gangrene developed after he stepped on a nail. He went back to [facility] on with worsening Left foot swelling / tenderness and 4th and 5th toe black discoloration. Pt was admitted here for further care. He was seen by assistant technician and performed a debridement, however his left foot cellulites unchanged. He was still c/o pain, does have swelling and erythema with black discolored left 4th and 5th toe as well as base distal 4th,5th MTP joints. He did go for angioplasty on 09/21/16. He did have I & D and resection of Left 4th and 5th toes done on 09/23/16. Pain is not well controlled with current medications, he is asking for more pain meds. Currently on 2 lit O2 NC - Constitutional Vitals: Temp Pulse Resp BP Pulse Ox 98.2 F 100 20 123/85 100 09/24/16 07:36 09/24/16 08:41 09/24/16 07:36 09/24/16 07:36 09/24/16 07:36 General appearance: Present: A&O X 3, no acute distress, answers questions appropriately - Head Head exam: Present: atraumatic, normal inspection - Respiratory Respiratory exam: Present: decreased breath sounds, wheezes. Absent: respiratory distress, rhonchi, stridor - Cardiovascular Cardiovascular exam: Present: RRR, +S1, +S2. Absent: systolic murmur - GI/Abdominal GI/Abdominal exam: Present: normal bowel sounds, soft. Absent: distended, guarding, rebound, rigid - Extremities Exam Additional comments: s/p Left 4th and 5th toe resected, metatarsal amputation at 4th and 5th - with wound vac bag. mild edema + - Psychiatric Psychiatric exam: Present: normal affect, normal mood Internal Medicine: Result - Labs CBC & Chem 7: 09/24/16 05:40 09/24/16 05:40 Labs: Short CBC 09/24/16 Range/Units 05:40 WBC 16.3 H (4.3-11.1) K/mcL Hgb 9.3 L (12.9-16.9) g/dL Hct 28.8 L (37.5-50.1) % Plt Count 486 H (140-400) K/mcL Neutrophils # 14.0 H (1.6-8.9) K/mcL BMP 09/24/16 05:40 Sodium 132 L Potassium 5.0 H Chloride 99 Carbon Dioxide 26 BUN 27 H Creatinine 1.18 Glucose 338 H Calcium 8.6 - ABG Interpretation ABG results: ABG ABG pH 7.40 pH Units (7.32-7.45) 09/18/16 12:30 ABG pCO2 23 mmHg (35-45) L 09/18/16 12:30 ABG pO2 129 mmHg (85-104) H 09/18/16 12:30 ABG O2 Saturation 99 % (95-98) H 09/18/16 12:30 PT/INR, D-dimer PT 14.2 Seconds (9.4-12.1) H 09/21/16 07:58 - VTE Documentation of Mechanical Device: Intermittent pneumatic compression device Consult Discharge Plan - Plan Referrals: Mara Kiser CNP [Primary Care Provider] - 10/04/16 4:00 pm
--- NOTE | 2016-09-24 16:48 | Podiatry Progress Note ---
Date of Encounter: 09/24/16 Time of Encounter: 16:00 - Assessment and Plan (1) Cellulitis Current Visit: Yes Status: Acute Continue antibiotic treatment Wound cx from growing Proterus, Serratia, Citrobacter - sensitive to Zosyn Cultures were also obtained in OR Due to hx of MRSA will remain on Vanc at this time per internal med ID please continue to follow Qualifiers: Site of cellulitis: extremity Site of cellulitis of extremity: lower extremity Laterality: left Qualified Code(s): L03.116 - Cellulitis of left lower limb (2) Gangrene of left foot Current Visit: Yes Status: Acute Continue wound vac therapy with changes as ordered Patient states he is to go to LTCF- patient may leave whenever medically cleared Patient will need discharged on antibiotic therapy per ID recommendations Patient will need post op shoe Patient will need to be seen in clinic per .Sessions next week after discharge, please make patient appointment prior to discharge Will contact internal medicine regarding pain control Will plan for revisit to OR in 2-3 week depending on clinical picture for TMA Subjective Principal diagnosis: Left foot wound with PVD and recent ANAI Interval history: Patient is s/p Incision and drainage of left foot infection, resection of 4th and 5th metatarsal with amputation of digits 4,5. Bone biopsy. application of wound vac. Post op day #1. Patient resting comfortably on arrival. Patient states he is in pain 7/10. Patient denies any issues. States he believes he will be going to LTCF within the next few days. Patient denies any fevers, chills, n/v or flu like symptoms Objective - Vital Signs Vital Signs: Vital Signs Temp Pulse Resp BP Pulse Ox 09/24/16 16:05 97.8 F 98 16 169/87 96 09/24/16 15:27 94 16 132/58 94 09/24/16 13:02 95 09/24/16 11:46 98.0 F 91 18 146/80 100 09/24/16 11:18 20 99 09/24/16 08:41 100 09/24/16 08:13 20 95 09/24/16 07:36 98.2 F 97 20 123/85 100 09/24/16 04:27 16 97 09/24/16 03:32 99.1 F 99 14 154/83 98 09/24/16 00:56 98.8 F 91 16 127/80 97 09/24/16 00:00 98.7 F 90 17 118/70 95 09/23/16 23:13 16 98 09/23/16 23:00 98.8 F 89 18 116/68 94 09/23/16 22:00 98.6 F 86 17 125/68 92 09/23/16 21:30 98.6 F 85 18 128/80 97 09/23/16 21:00 98.8 F 85 16 129/66 97 09/23/16 20:45 98.6 F 18 137/75 97 09/23/16 20:34 15 97 09/23/16 20:30 98.7 F 100 16 124/86 100 09/23/16 20:15 98.6 F 89 18 137/71 99 09/23/16 20:00 98.6 F 93 17 144/72 98 09/23/16 19:55 94 09/23/16 19:46 98.6 F 97 18 137/74 98 09/23/16 19:32 98.2 F 94 14 124/66 97 09/23/16 19:22 93 16 103/83 98 09/23/16 19:13 93 16 121/59 92 09/23/16 19:02 92 16 110/65 93 09/23/16 18:57 90 18 118/66 98 09/23/16 18:47 90 16 125/79 96 09/23/16 18:37 93 15 121/67 99 09/23/16 18:27 98.2 F 100 16 120/68 96 Intake and Output 09/24/16 09/24/16 09/24/16 07:59 15:59 23:59 Intake Total 580 / 580 710 / 710 Output Total 1250 / 1250 975 / 975 Balance -670 / -670 -265 / -265 Intake: IV Fluids 100 / 100 350 / 350 Zosyn 3.375 GM In 100 / 100 100 / 100 Dextrose 5% (Minibag+) 100 ML 100 ML @ 25 mls/hr IVPB Q8HR [facility] Rx#: [id number] Vancocin 750 MG In 250 / 250 Dextrose 5% 250 ML @ 250 mls/hr IVPB Q12H [facility] Rx#: [id number] Oral 480 / 480 360 / 360 Output: Urine 1250 / 1250 925 / 925 Wound Drainage 50 / 50 Left Foot 50 / 50 Other: Meal Lunch Percent of Meal Consumed 100% Stool Size Moderate Stool Consistency loose Stool Color Brown # Voids 1 Weight 74.5 kg Blood Glucose* 327 273 Patient Weight 09/24/16 23:59 Weight 74.5 kg - Exam Exam: Podiatry General Exam: General appearance: alert awake oriented X 3. Calm and pleasant, no acute distress.. Vascular: Pedal pulses faint DP/PT , No evidence of cyanosis, pallor or rubor, Edema graded at 0+/4, Skin Temperature warm, No calf pain with manual compression. capillary refill time is immediate to digits. Neurologic: Sensation intact with moderate touch Postop Exam: S/PIncision and drainage of left foot infection, resection of 4th and 5th metatarsal with amputation of digits 4,5. Bone biopsy. application of wound vac. There is a wound vac in place to lateral aspect of left foot. There is absence of toes #4 #5. Wound vac is on and running without issue. Black granufoam in place covered with kerlex. There is bloody drainage to canister 70cc. There is no noted leak. - Lab Result Diagrams: 09/24/16 05:40 09/24/16 05:40 Labs: Abnormal lab results WBC 16.3 K/mcL (4.3-11.1) H 09/24/16 05:40 RBC 2.93 M/mcL (4.19-5.50) L 09/24/16 05:40 Hgb 9.3 g/dL (12.9-16.9) L 09/24/16 05:40 Hct 28.8 % (37.5-50.1) L 09/24/16 05:40 RDW 15.0 % (11.5-14.5) H 09/24/16 05:40 Plt Count 486 K/mcL (140-400) H 09/24/16 05:40 MPV 8.8 fL (9.4-12.4) L 09/24/16 05:40 Neutrophils # 14.0 K/mcL (1.6-8.9) H 09/24/16 05:40 ESR 108 mm/hr (0-10) H 09/23/16 04:37 PT 14.2 Seconds (9.4-12.1) H 09/21/16 07:58 ABG pCO2 23 mmHg (35-45) L 09/18/16 12:30 ABG pO2 129 mmHg (85-104) H 09/18/16 12:30 ABG HCO3 14.2 mEQ/L (21-27) L 09/18/16 12:30 ABG Total CO2 14.9 mEq/L (20-26) L 09/18/16 12:30 ABG O2 Saturation 99 % (95-98) H 09/18/16 12:30 ABG Base Excess -9.4 mEq/L (-2.0 to 3.0) L 09/18/16 12:30 Sodium 132 mEq/L (136-145) L 09/24/16 05:40 Potassium 5.0 mEq/L (3.5-4.5) H 09/24/16 05:40 BUN 27 mg/dL (8-26) H 09/24/16 05:40 Glucose 338 mg/dL (70-99) H 09/24/16 05:40 POC Glucose 273 (58-89) H 09/24/16 15:28 Hemoglobin A1c 7.4 % (-5.6) H 09/23/16 04:37 AST 151 Units/L (5-34) H 09/21/16 06:01 ALT 110 Units/L (0-55) H 09/21/16 06:01 Alkaline Phosphatase 319 Units/L (38-126) H 09/21/16 06:01 Creatine Kinase 3773 Units/L (30-200) H 09/21/16 06:01 C-Reactive Protein 133 mg/L (Less than 5) H 09/23/16 04:37 Serum Total Protein 5.8 g/dL (6.0-8.3) L 09/21/16 06:01 Albumin 2.0 g/dL (3.5-5.0) L 09/21/16 06:01 Globulin 3.8 g/dL (2.4-3.5) H 09/21/16 06:01 Albumin/Globulin Ratio 0.5 (1.1-2.2) L 09/21/16 06:01 Ur Specific [place] > 1.030 (1.010-1.025) H 09/21/16 20:25 Urine Protein 100 mg/dL (Neg-Trace) H 09/21/16 20:25 Urine Glucose (UA) >=1000 mg/dL (Normal) H 09/21/16 20:25 Urine Blood Large (Negative) H 09/21/16 20:25 Urine Microscopic WBC 3-5 per hpf (0-3) H 09/21/16 20:25 Ur Squamous Epith Cells Many per lpf (None-Few) H 09/21/16 20:25 Protein/Creatinin Ratio 1.26 mg/mg (0-0.20) H 09/21/16 20:25 Urine Total Protein 88 mg/dL (1-14) H 09/21/16 20:25 Vancomycin Trough 9.2 mcg/mL (10-20) L 09/23/16 15:52 Microbiology, Last 48 Hours 09/23/16 18:08 Wound Culture - Preliminary Left Foot Proteus vulgaris 09/17/16 20:52 Blood Culture - Final Peripheral Venipuncture No growth. 09/17/16 20:59 Blood Culture - Final Peripheral Venipuncture No growth. - VTE Documentation of Mechanical Device: Intermittent pneumatic compression device Consult Discharge Plan - Plan Referrals: Mara Kiser, RECOVERER [Primary Care Provider] - 10/04/16 4:00 pm
--- NOTE | 2016-09-24 17:26 | Vascular/Endovas Progress Note ---
Date of Encounter: 09/24/16 Time of Encounter: 14:00 - Assessment and plan (1) PAD (peripheral artery disease) Current Visit: Yes Status: Acute Patent left lower extremity endovascular intervention. Perfusion of left foot is improved. Patient's white blood cell count and hemoglobin are stable. Serum creatinine is stable. Patient is overall clinically stable following intervention. (2) COPD (chronic obstructive pulmonary disease) Current Visit: Yes Status: Chronic Patient under medical treatment for chronic COPD Qualifiers: COPD type: unspecified COPD Qualified Code(s): J44.9 - Chronic obstructive pulmonary disease, unspecified (3) Cellulitis Current Visit: Yes Status: Acute Left foot cellulitis and probable deeper tissue involvement. This will be followed by podiatry. Qualifiers: Site of cellulitis: extremity Site of cellulitis of extremity: lower extremity Laterality: left Qualified Code(s): L03.116 - Cellulitis of left lower limb - Subjective Interval history: Patient is postprocedure day #3 following Angiogram and angioplasty performed Tuesday. Patient complains of pain left lower extremity but no other significant change. Patient is status post fourth and fifth metatarsal amputations and 2 amputations yesterday. A wound VAC was applied Vital Signs, Last 4 Hours Temp Pulse Resp BP Pulse Ox 09/24/16 16:05 97.8 F 98 16 169/87 96 09/24/16 15:51 20 97 09/24/16 15:27 94 16 132/58 94 - Physical Examination General: Present: Conversant, No Apparent Distress Vascular: Present: Other (The patient has Doppler signals 3 at the left ankle. The left first and second and third toes are warm and pink. The wound VAC device is intact and functioning well on the left foot.) - VTE Documentation of Mechanical Device: Intermittent pneumatic compression device Results 09/24/16 05:40 09/24/16 05:40 Lab Results, Last 24 hours 09/24/16 09/24/16 05:40 05:40 WBC 16.3 H Hgb 9.3 L Hct 28.8 L Plt Count 486 H Sodium 132 L Potassium 5.0 H Chloride 99 Carbon Dioxide 26 BUN 27 H Creatinine 1.18 Glucose 338 H Calcium 8.6 Magnesium 1.7 Consult Discharge Plan - Plan Referrals: Mara Kiser, DIGITAL MARKETING APPRENTICE [Primary Care Provider] - 10/04/16 4:00 pm Cali Caesy MD [Partnered Physician] - (Follow-up with Dr. Casey 3 weeks following discharge)
[2016-09-24] MEDS: Insulin DETEMIR 100 UNIT/ML X5UNITS SQ SCH (20:57)
[2016-09-24] MEDS: Nicotine 21 MG PATCH.TD24 TD PRN (22:44)
[2016-09-25] MEDS: *HR* OxyCODONE/APAP 5/325 TABLET PO PRN ×4 (02:02→22:10)
[2016-09-25 03:29] LABS: Basophils % 0.3 %; Eosinophils % 0.2 %; Hemoglobin 9.2 g/dL (12.9-16.9); Immature Granulocytes % 1.4 % (0-4); Lymphocytes # 1.9 K/mcL (0.6-4.6); Lymphocytes % 15.1 %; Mean Corpuscular HGB Conc 31.7 g/dL (31.6-35.5); Mean Corpuscular Hemoglobin 31.9 pg (28.0-33.3); Mean Corpuscular Volume 100.7 fL (83.0-100.0); Mean Platelet Volume 8.6 fL (9.4-12.4); Neutrophils # 9.7 K/mcL (1.6-8.9); Platelet Count 404 K/mcL (140-400); Red Blood Count 2.88 M/mcL (4.19-5.50)
[2016-09-25 03:44] LABS: BUN/Creatinine Ratio 20 (6-26); Blood Urea Nitrogen 27 mg/dL (8-26); Calcium 8.7 mg/dL (8.6-10.8); Carbon Dioxide 24 mEq/L (19-29); Chloride 101 mEq/L (98-109); Glucose 174 mg/dL (70-99); Magnesium 1.6 mg/dL (1.6-2.6); Osmolality,Calculated 285 (280-300); Sodium 133 mEq/L (136-145); eGFR For African Americans > 60 (> 60); eGFR For Non-African Americans 56 (> 60)
[2016-09-25] MEDS: Ipratropium/Albuterol Neb 3 ML IH SCH ×6 (04:40→23:00)
[2016-09-25] MEDS: *HR* Morphine 2 MG/ML SYRINGE IVP PRN ×2 (05:43→20:09)
[2016-09-25] MEDS: Lactobacillus 1 EACH CAP.SPRINK PO SCH (08:16)
[2016-09-25] MEDS: FLUoxetine 20 MG CAPSULE PO SCH (08:16)
[2016-09-25] MEDS: predniSONE 10 MG TABLET PO SCH (08:16)
[2016-09-25] MEDS: Piperacillin/Tazobactam 3.375 GM in D5% in Water (Mini-Bag+) 100 ML IVPB SCH ×3 (08:21→23:47)
[2016-09-25] MEDS: Vancomycin 750 MG in D5% in Water 250 ML IVPB SCH (08:21)
[2016-09-25] MEDS: *HR* Enoxaparin 40 MG/0.4 ML SYRINGE SQ SCH (08:22)
[2016-09-25] MEDS: Insulin LISPRO 300 UNITS/3 ML VIAL SQ SCH ×4 (08:23→22:05)
--- NOTE | 2016-09-25 13:31 | Internal Med Progress Note ---
Date of Encounter: 09/25/16 Time of Encounter: 13:28 - Assessment and plan (1) Gangrene of left foot Current Visit: Yes Status: Acute Assessment and plan: Had Incision and drainage of left foot infection, resection of 4th and 5th metatarsal with amputation of digits 4,5. Bone biopsy - POD #2 application of wound vac + Wound cx from is growing Proterus, Serratia, Citrobacter - all of them sensitive to Zosyn tissues cx from 09/23/16 growing Proteus and G-ve rods d/c Vancomycin ID is on board for further abx management may need intermediate IV abx (2) Sepsis Current Visit: Yes Status: Resolved Assessment and plan: Due to Left foot gangrenous cellulites improving Qualifiers: Sepsis type: sepsis due to unspecified organism Qualified Code(s): A41.9 - Sepsis, unspecified organism (3) PAD (peripheral artery disease) Current Visit: Yes Status: Acute Assessment and plan: s/p Balloon angioplasty of left anterior tibial artery with 2 mm and 3 mm diameter balloons Balloon angioplasty of left popliteal and superficial femoral artery with 4 mm diameter balloon cont Plavix Finished Acetyl cysteine for renal protection (4) Acute kidney failure Current Visit: Yes Status: Acute Assessment and plan: Resolved initially and his Cr started trending up again due to spesis and abx induced mostly d/c Vancomycin started him gentle hydration Since pt went for angiogram - finished Acetylcystine 600mg BID x 2 days Nephro is on board Qualifiers: Qualified Code(s): N17.9 - Acute kidney failure, unspecified (5) Salicylate causing adverse effect in therapeutic use Current Visit: No Status: Inactive Assessment and plan: resolved..no signs of overdose Qualifiers: Encounter type: initial encounter Qualified Code(s): T39.095A - Adverse effect of salicylates, initial encounter (6) Diabetes mellitus, insulin dependent (IDDM), controlled Current Visit: Yes Status: Acute Assessment and plan: Con ISS + Levemir 20 U QHS HbA1C 8.5 (7) Elevated liver enzymes Current Visit: Yes Status: Acute Assessment and plan: Mostly due to sepsis + chronic alcohol dependence Reviewed U/S of Liver No acute concerns.. can have MRI of Liver as an out pt once current problems stabilizes his LFT's trending down Cont monitoring avoid hepatotoxic meds (8) Alcohol dependence Current Visit: Yes Status: Chronic Assessment and plan: counseled to quit had last alcohol a week prior to hospitalization no signs of withdrawl cont close monitoring Qualifiers: Substance use status: uncomplicated Qualified Code(s): F10.20 - Alcohol dependence, uncomplicated (9) COPD (chronic obstructive pulmonary disease) Current Visit: Yes Status: Chronic Assessment and plan: Not in exacerbation cont home regimen Qualifiers: COPD type: unspecified COPD Qualified Code(s): J44.9 - Chronic obstructive pulmonary disease, unspecified (10) Hypertension Current Visit: No Status: Chronic Assessment and plan: Continue home medications. BP is stable Qualifiers: Hypertension type: essential hypertension Qualified Code(s): I10 - Essential (primary) hypertension (11) Tobacco dependence Current Visit: Yes Status: Chronic Assessment and plan: Counseled to quit smoking placed on nicotine patch (12) DVT prophylaxis Current Visit: Yes Status: Acute Assessment and plan: on Lovenox - Subjective Interval history: This is a 55 y/o M with known PMH of HTN, DM2, COPD, Chronic smoker, chronic alcohol dependent pt who recently admitted at [facility] for left foot gangrene developed after he stepped on a nail. He went back to [facility] on with worsening Left foot swelling / tenderness and 4th and 5th toe black discoloration. Pt was admitted here for further care. He was seen by hand packer/packager and performed a debridement, however his left foot cellulites unchanged. He was still c/o pain, does have swelling and erythema with black discolored left 4th and 5th toe as well as base distal 4th,5th MTP joints. He did go for angioplasty on 09/21/16. He did have I & D and resection of Left 4th and 5th toes done on 09/23/16. Pain is not well controlled with current medications, he is asking for more pain meds. Denied any CP / SOB. Breathing comfortably on RA - Constitutional Vitals: Temp Pulse Resp BP Pulse Ox 98.0 F 80 17 161/88 99 09/25/16 11:22 09/25/16 11:59 09/25/16 11:22 09/25/16 11:22 09/25/16 11:22 General appearance: Present: A&O X 3, no acute distress, answers questions appropriately - Head Head exam: Present: atraumatic, normal inspection - Neck Neck exam general surgery: Present: supple. Absent: lymphadenopathy - Respiratory Respiratory exam: Present: decreased breath sounds, wheezes. Absent: rales, respiratory distress, rhonchi - Cardiovascular Cardiovascular exam: Present: RRR, +S1, +S2. Absent: systolic murmur - GI/Abdominal GI/Abdominal exam: Present: soft. Absent: rebound, tenderness - Extremities Exam Additional comments: Improving swelling in Left ankle and foot. s/p left 4th and 5ht toe amputation, Dressing placed on with wound vac + over left foot - Neurological Exam Neurological exam: Present: alert, oriented X3 - Psychiatric Psychiatric exam: Present: normal affect, normal mood Internal Medicine: Result - Labs CBC & Chem 7: 09/25/16 03:19 09/25/16 03:19 Labs: Short CBC 09/25/16 Range/Units 03:19 WBC 12.9 H (4.3-11.1) K/mcL Hgb 9.2 L (12.9-16.9) g/dL Hct 29.0 L (37.5-50.1) % Plt Count 404 H (140-400) K/mcL Neutrophils # 9.7 H (1.6-8.9) K/mcL BMP 09/25/16 03:19 Sodium 133 L Potassium 5.0 H Chloride 101 Carbon Dioxide 24 BUN 27 H Creatinine 1.32 H Glucose 174 H Calcium 8.7 - ABG Interpretation ABG results: ABG ABG pH 7.40 pH Units (7.32-7.45) 09/18/16 12:30 ABG pCO2 23 mmHg (35-45) L 09/18/16 12:30 ABG pO2 129 mmHg (85-104) H 09/18/16 12:30 ABG O2 Saturation 99 % (95-98) H 09/18/16 12:30 PT/INR, D-dimer PT 14.2 Seconds (9.4-12.1) H 09/21/16 07:58 - VTE Documentation of Mechanical Device: Intermittent pneumatic compression device Consult Discharge Plan - Plan Referrals: Mara Kiser CNP [Primary Care Provider] - 10/04/16 4:00 pm Cali Casey MD [Partnered Physician] - (Follow-up with Dr. Casey 3 weeks following discharge)
[2016-09-25] MEDS: 0.9 % Sodium Chloride 1,000 ML IVC SCH (13:45)
[2016-09-25 21:50] LABS: BUN/Creatinine Ratio 21 (6-26); Blood Urea Nitrogen 29 mg/dL (8-26); Calcium 8.6 mg/dL (8.6-10.8); Carbon Dioxide 28 mEq/L (19-29); Chloride 101 mEq/L (98-109); Creatine Kinase 151 Units/L (30-200); Glucose 187 mg/dL (70-99); Magnesium 1.4 mg/dL (1.6-2.6); Osmolality,Calculated 293 (280-300); Sodium 136 mEq/L (136-145); eGFR For African Americans > 60 (> 60); eGFR For Non-African Americans 54 (> 60)
[2016-09-25] MEDS: Insulin DETEMIR 100 UNIT/ML X5UNITS SQ SCH (22:05)
[2016-09-25] MEDS: Nicotine 21 MG PATCH.TD24 TD PRN (22:09)
[2016-09-25] MEDS ORDERED: Magnesium Sulfate 2 GM in D5% in Water 100 ML IVPB ONE (23:01)
[2016-09-25] MEDS ORDERED: 0.9 % Sodium Chloride 500 ML IVC ONE (23:01)
[2016-09-25] MEDS ORDERED: Calcium Gluconate 1,000 MG in D5% in Water 100 ML IVPB ONE (23:01)
[2016-09-26] MEDS: *HR* Morphine 2 MG/ML SYRINGE IVP PRN ×4 (00:13→22:19)
[2016-09-26] MEDS: *HR* OxyCODONE/APAP 5/325 TABLET PO PRN ×4 (03:08→20:00)
[2016-09-26 03:28] LABS: Basophils % 0.3 %; Eosinophils # 0.1 K/mcL (0.0-0.6); Eosinophils % 0.6 %; Hemoglobin 8.5 g/dL (12.9-16.9); Immature Granulocytes % 1.9 % (0-4); Lymphocytes # 1.8 K/mcL (0.6-4.6); Lymphocytes % 15.7 %; Mean Corpuscular HGB Conc 31.5 g/dL (31.6-35.5); Mean Corpuscular Hemoglobin 31.5 pg (28.0-33.3); Mean Platelet Volume 8.7 fL (9.4-12.4); Monocytes % 8.1 %; Neutrophils # 8.6 K/mcL (1.6-8.9); Platelet Count 417 K/mcL (140-400); Red Cell Distribution Width 14.6 % (11.5-14.5); Segmented Neutrophils % 73.4 %
[2016-09-26 03:43] LABS: BUN/Creatinine Ratio 23 (6-26); Blood Urea Nitrogen 26 mg/dL (8-26); Calcium 8.4 mg/dL (8.6-10.8); Carbon Dioxide 30 mEq/L (19-29); Chloride 100 mEq/L (98-109); Glucose 211 mg/dL (70-99); Magnesium 1.7 mg/dL (1.6-2.6); Osmolality,Calculated 293 (280-300); Potassium 4.3 mEq/L (3.5-4.5); Sodium 136 mEq/L (136-145); eGFR For African Americans > 60 (> 60); eGFR For Non-African Americans > 60 (> 60)
[2016-09-26] MEDS: Ipratropium/Albuterol Neb 3 ML IH SCH ×6 (04:02→23:28)
[2016-09-26] MEDS: 0.9 % Sodium Chloride 1,000 ML IVC SCH (05:08)
[2016-09-26] MEDS: *HR* Enoxaparin 40 MG/0.4 ML SYRINGE SQ SCH (05:50)
[2016-09-26] MEDS: Lactobacillus 1 EACH CAP.SPRINK PO SCH (07:51)
[2016-09-26] MEDS: predniSONE 10 MG TABLET PO SCH (07:52)
[2016-09-26] MEDS: Piperacillin/Tazobactam 3.375 GM in D5% in Water (Mini-Bag+) 100 ML IVPB SCH ×2 (07:52→16:19)
[2016-09-26] MEDS: FLUoxetine 20 MG CAPSULE PO SCH (07:55)
[2016-09-26] MEDS: Insulin LISPRO 300 UNITS/3 ML VIAL SQ SCH ×4 (07:55→21:59)
--- NOTE | 2016-09-26 09:11 | Internal Med Progress Note ---
Date of Encounter: 09/26/16 Time of Encounter: 09:09 - Assessment and plan (1) Gangrene of left foot Current Visit: Yes Status: Acute Assessment and plan: Had Incision and drainage of left foot infection, resection of 4th and 5th metatarsal with amputation of digits 4,5. Bone biopsy - POD #2 application of wound vac + Wound cx from is growing Proterus, Serratia, Citrobacter - all of them sensitive to Zosyn tissues cx from 09/23/16 growing Proteus and G-ve rods d/c Vancomycin on 09/25/16 ID is on board for further abx management may need jail IV abx Wound care / Wound vac replacement as per Mover Helper recommendations possible d/c to SNF in AM (2) Sepsis Current Visit: Yes Status: Resolved Assessment and plan: Due to Left foot gangrenous cellulites improving Qualifiers: Sepsis type: sepsis due to unspecified organism Qualified Code(s): A41.9 - Sepsis, unspecified organism (3) PAD (peripheral artery disease) Current Visit: Yes Status: Acute Assessment and plan: s/p Balloon angioplasty of left anterior tibial artery with 2 mm and 3 mm diameter balloons Balloon angioplasty of left popliteal and superficial femoral artery with 4 mm diameter balloon cont Plavix Finished Acetyl cysteine for renal protection (4) Acute kidney failure Current Visit: Yes Status: Acute Assessment and plan: Resolved initially and his Cr started trending up again due to spesis and abx induced mostly d/c Vancomycin Cr started trending down again Since pt went for angiogram - finished Acetylcystine 600mg BID x 2 days Nephro is on board Qualifiers: Qualified Code(s): N17.9 - Acute kidney failure, unspecified (5) Salicylate causing adverse effect in therapeutic use Current Visit: No Status: Inactive Assessment and plan: resolved..no signs of overdose Qualifiers: Encounter type: initial encounter Qualified Code(s): T39.095A - Adverse effect of salicylates, initial encounter (6) Diabetes mellitus, insulin dependent (IDDM), controlled Current Visit: Yes Status: Acute Assessment and plan: Con ISS + since his fasting BS are in low 100's and day BS are still uncontrolled will change Levemir to 15 U BID HbA1C 8.5 (7) Elevated liver enzymes Current Visit: Yes Status: Acute Assessment and plan: Mostly due to sepsis + chronic alcohol dependence Reviewed U/S of Liver No acute concerns.. can have MRI of Liver as an out pt once current problems stabilizes his LFT's trending down Cont monitoring avoid hepatotoxic meds (8) Alcohol dependence Current Visit: Yes Status: Chronic Assessment and plan: counseled to quit had last alcohol a week prior to hospitalization no signs of withdrawl cont close monitoring Qualifiers: Substance use status: uncomplicated Qualified Code(s): F10.20 - Alcohol dependence, uncomplicated (9) COPD (chronic obstructive pulmonary disease) Current Visit: Yes Status: Chronic Assessment and plan: Not in exacerbation cont home regimen Qualifiers: COPD type: unspecified COPD Qualified Code(s): J44.9 - Chronic obstructive pulmonary disease, unspecified (10) Hypertension Current Visit: No Status: Chronic Assessment and plan: Continue home medications. BP is stable Qualifiers: Hypertension type: essential hypertension Qualified Code(s): I10 - Essential (primary) hypertension (11) Tobacco dependence Current Visit: Yes Status: Chronic Assessment and plan: Counseled to quit smoking placed on nicotine patch (12) DVT prophylaxis Current Visit: Yes Status: Acute Assessment and plan: on Lovenox - Subjective Interval history: This is a 55 y/o M with known PMH of HTN, DM2, COPD, Chronic smoker, chronic alcohol dependent pt who recently admitted at [facility] for left foot gangrene developed after he stepped on a nail. He went back to [facility] on with worsening Left foot swelling / tenderness and 4th and 5th toe black discoloration. Pt was admitted here for further care. He was seen by granite countertop installer and performed a debridement, however his left foot cellulites unchanged. He was still c/o pain, does have swelling and erythema with black discolored left 4th and 5th toe as well as base distal 4th,5th MTP joints. He did go for angioplasty on 09/21/16. He did have I & D and resection of Left 4th and 5th toes done on 09/23/16. Pain is well controlled with current regimen. Denied any CP / SOB. Breathing comfortably on RA - Constitutional Vitals: Temp Pulse Resp BP Pulse Ox 98.1 F 87 14 173/76 95 09/26/16 06:45 09/26/16 06:45 09/26/16 08:03 09/26/16 06:45 09/26/16 08:03 General appearance: Present: A&O X 3, no acute distress, answers questions appropriately - Head Head exam: Present: atraumatic, normal inspection - Respiratory Respiratory exam: Present: decreased breath sounds, wheezes. Absent: rales, respiratory distress, rhonchi - Cardiovascular Cardiovascular exam: Present: RRR, +S1, +S2. Absent: systolic murmur - GI/Abdominal GI/Abdominal exam: Present: normal bowel sounds, soft. Absent: rebound, rigid, tenderness - Extremities Exam Extremities exam: Present: pedal edema (mild swelling in Left leg distally and left foot ). Absent: tenderness Additional comments: s/p left 4th and 5th toe amputation - dressing an wound vac + on. Mild erythema and swelling noticed in the Left foot - Neurological Exam Neurological exam: Present: alert, oriented X3 - Psychiatric Psychiatric exam: Present: normal affect, normal mood Internal Medicine: Result - Labs CBC & Chem 7: 09/26/16 02:39 09/26/16 02:39 Labs: Short CBC 09/26/16 Range/Units 02:39 WBC 11.7 H (4.3-11.1) K/mcL Hgb 8.5 L (12.9-16.9) g/dL Hct 27.0 L (37.5-50.1) % Plt Count 417 H (140-400) K/mcL Neutrophils # 8.6 (1.6-8.9) K/mcL BMP 09/25/16 09/26/16 21:17 02:39 Sodium 136 136 Potassium 5.0 H 4.3 Chloride 101 100 Carbon Dioxide 28 30 H BUN 29 H 26 Creatinine 1.35 H 1.13 Glucose 187 H 211 H Calcium 8.6 8.4 L Cardiac Enzymes 09/25/16 09/26/16 Range/Units 21:17 02:39 Troponin I 0.00 0.00 (0-0.03) ng/mL - ABG Interpretation ABG results: ABG ABG pH 7.40 pH Units (7.32-7.45) 09/18/16 12:30 ABG pCO2 23 mmHg (35-45) L 09/18/16 12:30 ABG pO2 129 mmHg (85-104) H 09/18/16 12:30 ABG O2 Saturation 99 % (95-98) H 09/18/16 12:30 PT/INR, D-dimer PT 14.2 Seconds (9.4-12.1) H 09/21/16 07:58 - VTE Documentation of Mechanical Device: Intermittent pneumatic compression device Consult Discharge Plan - Plan Referrals: Mara Kiser CNP [Primary Care Provider] - 10/04/16 4:00 pm Cali Casey MD [Partnered Physician] - (Follow-up with Dr. Casey 3 weeks following discharge)
[2016-09-26] MEDS ORDERED: predniSONE 10 MG TABLET PO SCH (09:16)
[2016-09-26] MEDS: Insulin DETEMIR 100 UNIT/ML X5UNITS SQ SCH ×2 (12:26→22:18)
[2016-09-27] MEDS: Piperacillin/Tazobactam 3.375 GM in D5% in Water (Mini-Bag+) 100 ML IVPB SCH ×2 (00:30→08:04)
[2016-09-27 02:03] LABS: Basophils % 0.2 %; Eosinophils # 0.1 K/mcL (0.0-0.6); Eosinophils % 0.6 %; Hematocrit 27.9 % (37.5-50.1); Hemoglobin 8.7 g/dL (12.9-16.9); Immature Granulocytes % 1.7 % (0-4); Lymphocytes # 1.8 K/mcL (0.6-4.6); Lymphocytes % 16.1 %; Mean Corpuscular HGB Conc 31.2 g/dL (31.6-35.5); Mean Corpuscular Hemoglobin 31.2 pg (28.0-33.3); Mean Platelet Volume 8.7 fL (9.4-12.4); Monocytes # 0.9 K/mcL (0.0-1.3); Platelet Count 394 K/mcL (140-400); Red Blood Count 2.79 M/mcL (4.19-5.50); Red Cell Distribution Width 14.6 % (11.5-14.5); Segmented Neutrophils % 73.4 %
[2016-09-27] MEDS: *HR* OxyCODONE/APAP 5/325 TABLET PO PRN ×2 (02:40→11:29)
[2016-09-27] MEDS: Ipratropium/Albuterol Neb 3 ML IH SCH ×4 (03:24→16:42)
[2016-09-27] MEDS: *HR* Enoxaparin 40 MG/0.4 ML SYRINGE SQ SCH (05:54)
[2016-09-27] MEDS: Insulin LISPRO 300 UNITS/3 ML VIAL SQ SCH ×3 (07:58→16:37)
[2016-09-27] MEDS: *HR* Morphine 2 MG/ML SYRINGE IVP PRN ×2 (07:59→16:55)
[2016-09-27] MEDS: FLUoxetine 20 MG CAPSULE PO SCH (08:05)
[2016-09-27] MEDS: Lactobacillus 1 EACH CAP.SPRINK PO SCH (08:06)
[2016-09-27] MEDS: Insulin DETEMIR 100 UNIT/ML X5UNITS SQ SCH (10:53)
--- NOTE | 2016-09-27 13:08 | Podiatry Progress Note ---
Date of Encounter: 09/28/16 Time of Encounter: 11:30 - Assessment and Plan (1) Cellulitis Status: Acute Qualifiers: Site of cellulitis: extremity Site of cellulitis of extremity: lower extremity Laterality: left Qualified Code(s): L03.116 - Cellulitis of left lower limb (2) Diabetes mellitus, insulin dependent (IDDM), controlled Status: Acute (3) Gangrene of left foot Status: Acute Status post I & D with amputation of toes #4 & #5 with resection of metatarsals #4 & #5 with bone biopsy and application of wound VAC 09/23/[address] Shabazz. Wound vac intact to left foot. Wound vac changed at bedside today. Patient will require a wound VAC upon discharge and require dressing changes every Tuesday, Tuesday, and Tuesday. Place small simplace black sponge to the wound of the left foot, connected to 125mmhg continuous suction. Wound cultures of left foot isolated Proteus Vulgaris and Citrobacter Freundii. Antibiotics per ID recommendations. WBC: 10.9, ESR: 48, CRP: 15 Minimize weight bearing to left foot, require post op shoe to left foot. Patient will need to f/u with Dr. Shabazz in clinic with in one week of discharge from hospital. Dr. Shabazz to plan for revisit to OR in 2-3 week depending on clinical picture for a TMA. (4) PAD (peripheral artery disease) Status: Acute (5) Left foot infection Status: Acute Subjective Principal diagnosis: Left foot wound with PVD and recent ANAI Interval history: Patient is status post I & D with amputation of toes #4 & #5 with resection of metatarsals #4 & #5 with bone biopsy and application of wound VAC 09/23/[address] Shabazz. Patient is sitting up in bed with wound vac intact to the right foot. Patient states right foot is sore. No c/o fever, chills, cp, sob or flu like symptoms. Objective - Vital Signs Vital Signs: Vital Signs Temp Pulse Resp BP Pulse Ox 09/27/16 11:43 98.5 F 91 18 165/76 93 09/27/16 11:05 16 94 09/27/16 07:38 16 99 09/27/16 07:13 98.2 F 92 16 165/71 93 09/27/16 03:24 16 97 09/27/16 00:07 98.6 F 88 17 164/71 96 09/26/16 23:28 17 96 09/26/16 20:00 97 09/26/16 19:42 16 97 09/26/16 19:09 98.6 F 92 16 149/65 98 09/26/16 15:27 18 98 09/26/16 15:13 97.9 F 85 16 174/79 98 Intake and Output 09/26/16 09/27/16 09/27/16 23:59 07:59 15:59 Intake Total 580 / 580 100 / 100 40 / 40 Output Total 1325 / 1325 0 / 0 300 / 300 Balance -745 / -745 100 / 100 -260 / -260 Intake: IV Fluids 100 / 100 100 / 100 Zosyn 3.375 GM In 100 / 100 100 / 100 Dextrose 5% (Minibag+) 100 ML 100 ML @ 25 mls/hr IVPB Q8HR [facility] Rx#: [id number] Oral 480 / 480 0 / 0 40 / 40 Output: Urine 1300 / 1300 0 / 0 300 / 300 Wound Drainage 25 / 25 Left Foot 25 / 25 Other: Meal Dinner Breakfast Percent of Meal Consumed 100% 100% Stool Size Small Stool Consistency soft formed Stool Color Brown # Bowel Movements 0 1 Weight 73.6 kg Blood Glucose* 146 42 274 Patient Weight 09/27/16 23:59 Weight 73.6 kg - Exam Exam: General appearance: alert awake oriented X 3. Calm and pleasant, no acute distress.. Vascular: Edema graded at 1+/4, Skin Temperature warm, No calf pain with manual compression. capillary refill time is immediate to digits. Neurologic: Sensation intact with light touch to foot. . Postop Exam: S/P Wound vac intact to left foot with 160 mls of serosanguineous drainage in wound vac canister. Wound vac removed at bedside, full thickness wound measuring 8 cm in length x 3.1 cm in width x 1 cm in depth, base of wound is red with pale wound edges to the plantar aspect, macerated skin to the plantar aspect of the left foot. No pus, no streaking. - Lab Result Diagrams: 09/27/16 01:55 09/26/16 02:39 Labs: Abnormal lab results RBC 2.79 M/mcL (4.19-5.50) L 09/27/16 01:55 Hgb 8.7 g/dL (12.9-16.9) L 09/27/16 01:55 Hct 27.9 % (37.5-50.1) L 09/27/16 01:55 MCHC 31.2 g/dL (31.6-35.5) L 09/27/16 01:55 RDW 14.6 % (11.5-14.5) H 09/27/16 01:55 MPV 8.7 fL (9.4-12.4) L 09/27/16 01:55 ESR 48 mm/hr (0-10) H 09/27/16 01:55 PT 14.2 Seconds (9.4-12.1) H 09/21/16 07:58 ABG pCO2 23 mmHg (35-45) L 09/18/16 12:30 ABG pO2 129 mmHg (85-104) H 09/18/16 12:30 ABG HCO3 14.2 mEQ/L (21-27) L 09/18/16 12:30 ABG Total CO2 14.9 mEq/L (20-26) L 09/18/16 12:30 ABG O2 Saturation 99 % (95-98) H 09/18/16 12:30 ABG Base Excess -9.4 mEq/L (-2.0 to 3.0) L 09/18/16 12:30 Carbon Dioxide 30 mEq/L (19-29) H 09/26/16 02:39 Glucose 211 mg/dL (70-99) H 09/26/16 02:39 POC Glucose 274 (58-89) H 09/27/16 11:45 Hemoglobin A1c 7.4 % (-5.6) H 09/23/16 04:37 Calcium 8.4 mg/dL (8.6-10.8) L 09/26/16 02:39 AST 151 Units/L (5-34) H 09/21/16 06:01 ALT 110 Units/L (0-55) H 09/21/16 06:01 Alkaline Phosphatase 319 Units/L (38-126) H 09/21/16 06:01 C-Reactive Protein 15 mg/L (Less than 5) H 09/27/16 01:55 Serum Total Protein 5.8 g/dL (6.0-8.3) L 09/21/16 06:01 Albumin 2.0 g/dL (3.5-5.0) L 09/21/16 06:01 Globulin 3.8 g/dL (2.4-3.5) H 09/21/16 06:01 Albumin/Globulin Ratio 0.5 (1.1-2.2) L 09/21/16 06:01 Ur Specific [place] > 1.030 (1.010-1.025) H 09/21/16 20:25 Urine Protein 100 mg/dL (Neg-Trace) H 09/21/16 20:25 Urine Glucose (UA) >=1000 mg/dL (Normal) H 09/21/16 20:25 Urine Blood Large (Negative) H 09/21/16 20:25 Urine Microscopic WBC 3-5 per hpf (0-3) H 09/21/16 20:25 Ur Squamous Epith Cells Many per lpf (None-Few) H 09/21/16 20:25 Protein/Creatinin Ratio 1.26 mg/mg (0-0.20) H 09/21/16 20:25 Urine Total Protein 88 mg/dL (1-14) H 09/21/16 20:25 Microbiology, Last 48 Hours 09/23/16 18:08 Anaerobic Culture - Preliminary Left Foot 09/23/16 18:08 Wound Culture - Final Left Foot Proteus vulgaris Citrobacter freundii - VTE Documentation of Mechanical Device: Intermittent pneumatic compression device Consult Discharge Plan - Plan Additional Instructions: Check weekly CBC, BUN/Cr, ESR, CRP every Tuesday for the duration of treatment Weekly EPIV care per protocol Follow up with ID 09/10/16 at 0900 f/u with PCP in one week f/u with hydramatic mechanic Dr. Shabazz in 1 week f/u with vascular surgery Dr. Cali Casey in 2-4 weeks Referrals: Mara Kiser CNP [Primary Care Provider] - 10/04/16 4:00 pm Cali Casey MD [Partnered Physician] - (Follow-up with Dr. Casey 3 weeks following discharge) Prescriptions: OxyCODONE/APAP 5/325 [Percocet 5/325 MG] 1 each PO Q4HR PRN #20 tab PRN Reason: Mild To Moderate Pain Levofloxacin 750 MG/150 ML [Levaquin Premix 750mg/150 mL] 750 mg IVPB DAILY 38 Days metroNIDAZOLE [Flagyl] 500 mg PO TID 38 Days Saccharomyces Boulardii [Florastor] 250 mg PO BID 38 Days
[2016-09-27] MEDS ORDERED: Aminoglycoside Consult 1 EACH MC ONE (13:11)
--- NOTE | 2016-09-27 15:16 | Electrocardiograph Report ---
[place] [id number] Test Date: 2016-09-25 Pat Name: Isaac Alonso Department: 115 Room: 3A44 Gender: M [employer] Driver: [place] : 1960 Requested By: Laura Wright Order Number: [id number] Reading MD: Noris Lew Measurements Intervals [place] Rate: 94 P: 56 PA: 113 QRS: 35 QRSD: 84 T: 45 QT: 323 QTc: 375 Interpretive Statements SINUS RHYTHM WITH SHORT PA INTERVAL Electronically Signed On 09-26-2016 22:22:42 EDT by Noris Lew
[2016-09-27] MEDS ORDERED: metroNIDAZOLE 500 MG TABLET PO SCH (15:53)
--- NOTE | 2016-09-27 15:53 | Infectious Disease Progress No ---
Date of Encounter: 09/27/16 Time of Encounter: 15:51 - Assessment and Plan (1) Sepsis Status: Resolved Severe sepsis: The patient had two SIRS criteria plus abnormal LFTs and ANAI on admission. Likely secondary to left foot infection. Improved. WBC normal. Tachycardia resolved. He has remained afebrile. ANAI has resolved. Blood cultures drawn 09/17/16 are negative x 2 sets. Qualifiers: Sepsis type: sepsis due to unspecified organism Qualified Code(s): A41.9 - Sepsis, unspecified organism (2) Left foot infection Status: Acute Location: Left lateral foot at level of 5th MTP joint. Causative organism: Citrobacter freundii, Proteus vulgaris, and Serratia rubidaea. Concern for anaerobes as well due to soft tissue gas. Likely secondary to previous nail puncture wound. Podiatry consulted and following. Status post bedside bedridement by Dr. Shabazz. Wound probes to bone, but no evidence of necrotizing fasciitis. Status post I & D with amputation of toes #4 & #5 with resection of metatarsals #4 & #5 with bone biopsy and application of wound VAC 09/23/[address] Shabazz. Cultures and pathology pending. Called lab and histology and requested to add fungal cultures and GMS stain. ESR and CRP are markedly elevated. Will need to treat as osteomyelitis. Vanc discontinued by the primary team. Zosyn switched to Cefepime. Discontinue Cefepime. Start Levaquin 750mg IV daily. Start Flagyl 500mg PO TID. Duration of treatment depends on the clinical picture, but likely 6 weeks of IV antibiotics followed by orals. Monitor renal function and for drug toxicity and dose-adjust antibiotics. Check weekly CBC, BUN/Cr, ESR, CRP every Tuesday for the duration of treatment. Weekly EPIV care per protocol. Follow up with ID 09/10/16 at 0900. (3) Gangrene of left foot Status: Acute Likely multifactorial: infectious + ischemia. Podiatry consulted and following. Status post bedside bedridement by Dr. Shabazz. Wound probes to bone, but no evidence of necrotizing fasciitis. ABIs show moderate bilateral occlusive disease. Vascular surgery consulted. Status post Abdominal aortogram, Aortogram with runoff, Balloon angioplasty of left anterior tibial artery with 2 mm and 3 mm diameter balloons, and Balloon angioplasty of left popliteal and superficial femoral artery with 4 mm diameter balloon 09/21/[address] Casey. Per the note, the patient will require additional intervention as an outpatient for right superficial femoral artery occlusion and tibial artery occlusions bilaterally. Status post I & D with amputation of toes #4 and 5, resection of metatarsals #4 and 5, bone biopsy, and application of wound VAC 09/23/[address] Shabazz. Will review full operative report once available. Wound care and activity restrictions per the podiatry team. Antibiotics as recommended above. (4) Cellulitis Status: Inactive Location: Left foot. Causative organism likely P. vulgaris, Citrobacter freundii, and Serratia rubidaea. Likely secondary to left foot puncture wound. X-ray of the left foot shows persistent soft tissue gas, but no osteomyelitis. Continue antibiotics as above. Qualifiers: Site of cellulitis: extremity Site of cellulitis of extremity: lower extremity Laterality: left Qualified Code(s): L03.116 - Cellulitis of left lower limb (5) Pneumonia Status: Acute Location: Right lower lobe. Causative organism unclear. Given recent AMS and patient's ETOH use, concern for aspiration. Duration of treatment depends on the clinical picture. Monitor renal function and for drug toxicity and dose-adjust antibiotics. Has likely received adequate antibiotic coverage, but will require extended ATB therapy for osteomyelitis. Qualifiers: Pneumonia type: due to unspecified organism Laterality: right Lung location: unspecified part of lung Qualified Code(s): J18.9 - Pneumonia, unspecified organism (6) ANAI (acute kidney injury) Status: Resolved Likely secondary to sepsis. Resolved. Continue to trend. Nephrology consulted and following. Avoid nephrotoxins as able and dose-adjust antibiotics. (7) Anemia Status: Acute Etiology unclear. No active bleeding noted. Improved. Further workup and management per the primary team. Qualifiers: Anemia type: unspecified type Qualified Code(s): D64.9 - Anemia, unspecified (8) Elevated liver enzymes Status: Acute Likely secondary to aspirin over-use. Improved. Continue to trend. (9) Metabolic acidosis Status: Resolved (10) PAD (peripheral artery disease) Status: Acute ABIs revealed bilateral moderate occlusive disease. Vascular surgery consulted. Status post Abdominal aortogram, Aortogram with runoff, Balloon angioplasty of left anterior tibial artery with 2 mm and 3 mm diameter balloons, and Balloon angioplasty of left popliteal and superficial femoral artery with 4 mm diameter balloon 09/21/[address] Casey. Per the note, the patient will require additional intervention as an outpatient for right superficial femoral artery occlusion and tibial artery occlusions bilaterally. (11) Aspirin overdose Status: Resolved Unintentional. Management per the primary team. Qualifiers: Encounter type: initial encounter Injury intent: accidental or unintentional Qualified Code(s): T39.011A - Poisoning by aspirin, accidental ( unintentional), initial encounter (12) Alcohol dependence Status: Chronic Patient reports drinking 4-6 beers per day. Continue CIWA per primary team's recommendations. Qualifiers: Substance use status: uncomplicated Qualified Code(s): F10.20 - Alcohol dependence, uncomplicated (13) Tobacco dependence Status: Chronic (14) COPD (chronic obstructive pulmonary disease) Status: Chronic Qualifiers: COPD type: unspecified COPD Qualified Code(s): J44.9 - Chronic obstructive pulmonary disease, unspecified (15) Diabetes mellitus, insulin dependent (IDDM), controlled Status: Acute HgbA1C 7.4%. Recommend aggressive glucose monitoring and control to promote wound healing and prevent re-infection. - Subjective Interval history: Patient seen and examined. Weekend notes reviewed. No acute events noted overnight. Status post I & D left lateral foot with amputation of digits 4 & 5, resection of digits 4 & 5, bone biopsy, and application of wound vac. Patient resting quietly in bed. Complains of pain in the left foot/leg, worse since surgery. Denies fevers, chills, or rigors. Denies chest pain, shortness of breath, or cough. Denies nausea, vomiting, diarrhea, or constipation. Denies urinary complaints. Denies abdominal pain. States his appetite is good. Denies oral thrush or new skin lesions. Infect Dis PN-Objective Data - Labs CBC & Chem 7: 09/27/16 01:55 09/26/16 02:39 Labs: Laboratory Results - last 24 hr 09/26/16 09/26/16 09/26/16 07:54 10:58 16:35 WBC RBC Hgb Hct MCV MCH MCHC RDW Plt Count MPV Immature Gran % Seg Neutrophils % Lymphocytes % Monocytes % Eosinophils % Basophils % Neutrophils # Lymphocytes # Monocytes # Eosinophils # Basophils # ESR POC Glucose 118 H 170 H 217 H C-Reactive Protein 09/26/16 09/27/16 09/27/16 20:59 01:55 01:55 WBC 10.9 RBC 2.79 L Hgb 8.7 L Hct 27.9 L MCV 100.0 MCH 31.2 MCHC 31.2 L RDW 14.6 H Plt Count 394 MPV 8.7 L Immature Gran % 1.7 Seg Neutrophils % 73.4 Lymphocytes % 16.1 Monocytes % 8.0 Eosinophils % 0.6 Basophils % 0.2 Neutrophils # 8.0 Lymphocytes # 1.8 Monocytes # 0.9 Eosinophils # 0.1 Basophils # 0.0 ESR 48 H POC Glucose 146 H C-Reactive Protein 09/27/16 09/27/16 09/27/16 01:55 07:33 07:37 WBC RBC Hgb Hct MCV MCH MCHC RDW Plt Count MPV Immature Gran % Seg Neutrophils % Lymphocytes % Monocytes % Eosinophils % Basophils % Neutrophils # Lymphocytes # Monocytes # Eosinophils # Basophils # ESR POC Glucose 38 L* 42 L* C-Reactive Protein 15 H 09/27/16 09/27/16 08:08 11:45 WBC RBC Hgb Hct MCV MCH MCHC RDW Plt Count MPV Immature Gran % Seg Neutrophils % Lymphocytes % Monocytes % Eosinophils % Basophils % Neutrophils # Lymphocytes # Monocytes # Eosinophils # Basophils # ESR POC Glucose 70 274 H C-Reactive Protein Cultures: Cultures 09/23/16 18:08 Anaerobic Culture - Preliminary Left Foot 09/23/16 18:08 Wound Culture - Final Left Foot Proteus vulgaris Citrobacter freundii 09/17/16 20:52 Blood Culture - Final Peripheral Venipuncture No growth. 09/17/16 20:59 Blood Culture - Final Peripheral Venipuncture No growth. 09/17/16 22:47 Anaerobic Culture - Final Left Foot No anaerobes were recovered. 09/17/16 22:47 Wound Culture - Final Left Foot Proteus vulgaris Citrobacter freundii complex Serratia rubidaea Serology 09/21/16 09/21/16 09/20/16 Range/Units 20:25 20:25 04:07 Urine Color Yellow (Yellow) Urine Clarity Clear (Clear) Urine pH 6.0 (5.0-8.0) pH Units Ur Specific [place] > 1.030 H (1.010-1.025) Urine Protein 100 H (Neg-Trace) mg/dL Urine Glucose (UA) >=1000 H (Normal) mg/dL Urine Ketones Negative (Negative) mg/dL Urine Blood Large H (Negative) Urine Nitrite Negative (Negative) Urine Bilirubin Negative (Negative) Urine Urobilinogen Normal (Normal) mg/dL Ur Leukocyte Esterase Negative (Negative) Urine Microscopic RBC 0-3 (0-3) per hpf Urine Microscopic WBC 3-5 H (0-3) per hpf Ur Eosinophil Smear 0 (None Seen) % Ur Squamous Epith Cells Many H (None-Few) per lpf Urine Bacteria None Seen (None-Few) per hpf Hyaline Casts None Seen (None-Few) per lpf Urine Yeast Test Not Performed Ur Culture Indicated? NO (NO) Urine Creatinine 70 mg/dL Protein/Creatinin Ratio 1.26 H (0-0.20) mg/mg Urine Sodium 38.0 mEq/L Urine Total Protein 88 H (1-14) mg/dL Hepatitis A IgM Ab Nonreactive (Nonreactive) Hep Bs Antigen Nonreactive (Nonreactive) Hep B Core IgM Ab Nonreactive (Nonreactive) Hepatitis C Ab Screen Nonreactive (Nonreactive) Exam - Constitutional Vitals: Temp Pulse Resp BP Pulse Ox 98.5 F 91 18 165/76 93 09/27/16 11:43 09/27/16 11:43 09/27/16 11:43 09/27/16 11:43 09/27/16 11:43 General appearance: average body habitus, cooperative, no acute distress - Head Head exam: Present: atraumatic, normal inspection, normocephalic - Eye Eye exam: Present: EOMI, normal appearance, PERRL Pupils: Present: normal accommodation - ENT ENT exam: Present: mucous membranes moist - Neck Neck exam: Present: normal inspection - Respiratory Respiratory exam: Present: CTAB. Absent: rales, respiratory distress, rhonchi, wheezes - Cardiovascular Cardiovascular exam: Present: RRR, +S1, +S2 - GI/Abdominal GI/Abdominal exam: Present: normal bowel sounds, soft. Absent: distended, tenderness - Extremities Exam Extremities exam: Present: pedal edema (2+ LLE, 1+ RLE), tenderness (left foot) . Absent: joint swelling Additional comments: Left foot wound VAC dressing with sponge well-compressed. Small amount of dark sanguinous drainage noted in the wound VAC canister. - Neurological Exam Neurological exam: Present: alert, oriented X3, no focal deficits - Psychiatric Psychiatric exam: Present: normal affect, normal mood - Skin Skin exam: Present: dry, intact, normal color, warm - Additional findings Additional findings: Mild scrotal and penile swelling noted. - VTE Documentation of Mechanical Device: Intermittent pneumatic compression device Consult Discharge Plan - Plan Additional Instructions: Check weekly CBC, BUN/Cr, ESR, CRP every Tuesday for the duration of treatment Weekly EPIV care per protocol Follow up with ID 09/10/16 at 0900 f/u with PCP in one week f/u with cooler supervisor Sessions in 1 week f/u with vascular surgery Dr. Cali Casey in 2-4 weeks Referrals: Mara Kiser CNP [Primary Care Provider] - 10/04/16 4:00 pm Cali Casey MD [Partnered Physician] - (Follow-up with Dr. Casey 3 weeks following discharge) Prescriptions: OxyCODONE/APAP 5/325 [Percocet 5/325 MG] 1 each PO Q4HR PRN #20 tab PRN Reason: Mild To Moderate Pain Levofloxacin 750 MG/150 ML [Levaquin Premix 750mg/150 mL] 750 mg IVPB DAILY 38 Days metroNIDAZOLE [Flagyl] 500 mg PO TID 38 Days Saccharomyces Boulardii [Florastor] 250 mg PO BID 38 Days - Attending Attestation I examined this patient and my medical decision-making was reviewed with the Resident Physician. I agree with the documented findings, disposition and treatment plan as described except to the extent set forth below.
[2016-09-27 15:57] VITALS: BP 174/52
[2016-09-27] MEDS ORDERED: Levofloxacin 750 MG/150 ML 750 MG/150 ML BAG IVPB SCH (16:00)
--- NOTE | 2016-09-27 17:49 | Discharge Summary ---
Date of Encounter: 09/27/16 Time of Encounter: 15:00 - Discharge Diagnosis (1) Gangrene of left foot Priority: Primary Status: Acute (2) Sepsis Priority: Primary Status: Resolved Qualifiers: Sepsis type: sepsis due to unspecified organism Qualified Code(s): A41.9 - Sepsis, unspecified organism (3) PAD (peripheral artery disease) Priority: Secondary Status: Acute (4) Acute kidney failure Priority: Secondary Status: Acute Qualifiers: Qualified Code(s): N17.9 - Acute kidney failure, unspecified (5) Salicylate causing adverse effect in therapeutic use Priority: Secondary Status: Inactive Qualifiers: Encounter type: initial encounter Qualified Code(s): T39.095A - Adverse effect of salicylates, initial encounter (6) Diabetes mellitus, insulin dependent (IDDM), controlled Priority: Secondary Status: Acute (7) Elevated liver enzymes Priority: Secondary Status: Acute (8) Alcohol dependence Priority: Secondary Status: Chronic Qualifiers: Substance use status: uncomplicated Qualified Code(s): F10.20 - Alcohol dependence, uncomplicated (9) COPD (chronic obstructive pulmonary disease) Priority: Secondary Status: Chronic Qualifiers: COPD type: unspecified COPD Qualified Code(s): J44.9 - Chronic obstructive pulmonary disease, unspecified (10) Hypertension Priority: Secondary Status: Chronic Qualifiers: Hypertension type: essential hypertension Qualified Code(s): I10 - Essential (primary) hypertension (11) Tobacco dependence Priority: Secondary Status: Chronic (12) DVT prophylaxis Priority: Secondary Status: Acute - Discharge Medications Prescriptions: OxyCODONE/APAP 5/325 [Percocet 5/325 MG] 1 each PO Q4HR PRN #20 tab PRN Reason: Mild To Moderate Pain Levofloxacin 750 MG/150 ML [Levaquin Premix 750mg/150 mL] 750 mg IVPB DAILY 38 Days metroNIDAZOLE [Flagyl] 500 mg PO TID 38 Days Saccharomyces Boulardii [Florastor] 250 mg PO BID 38 Days Home Medications: Insulin Aspart Prot/Insuln Asp [Novolog Mix 70-30 Flexpen Syrn] 0 unit SQ BID # 0 10/27/15 [History] Ranitidine HCl [Zantac] 150 mg PO BID PRN 08/31/16 [History] Amlodipine Besylate 10 mg PO DAILY #30 tablet 09/09/16 [Rx] Doxazosin [Cardura] 4 mg PO HS #30 tablet 09/09/16 [Rx] Magnesium Oxide [Mag-Ox] 400 mg PO BID #14 tablet 09/09/16 [Rx] FLUoxetine HCl [Prozac] 20 mg PO DAILY 09/17/16 [History] Lisinopril [Zestril] 20 mg PO DAILY 09/17/16 [History] Multivit-Min/Iron Fum/Folic AC [Gxbzl-Pspiijo-Vxmmiexh Tablet] 1 tab PO DAILY [History] Clopidogrel [Plavix] 75 mg PO DAILY tab 09/27/16 [Rx] Ipratropium/Albuterol Neb [Duoneb] 3 ml IH [id number] PRN inh 09/27/16 [Rx] Levofloxacin 750 MG/150 ML [Levaquin Premix 750mg/150 mL] 750 mg IVPB DAILY 38 Days 09/27/16 [Rx] Metoprolol [Lopressor] 25 mg PO BID tab 09/27/16 [Rx] Nicotine Patch [Nicoderm] 21 mg TD DAILY PRN 09/27/16 [Rx] OxyCODONE/APAP 5/325 [Percocet 5/325 MG] 1 each PO Q4HR PRN #20 tab 09/27/16 [Rx ] Saccharomyces Boulardii [Florastor] 250 mg PO BID 38 Days 09/27/16 [Rx] metroNIDAZOLE [Flagyl] 500 mg PO TID 38 Days 09/27/16 [Rx] predniSONE [PredniSONE] 20 mg PO DAILY tab 09/27/16 [Rx] Allergies/Adverse Reactions: Allergies No Known Allergies Allergy (Verified 10/27/15 15:30) Procedures/tests Complete & Pending: Procedures Performed prior 72 hours Category Date Time Status ECG 12 lead ECG [ECG] Routine Y 09/25/16 20:52 Completed Date of admission: 09/17/16 19:53 Primary care physician: Mara Kiser CNP Consults: 09/17/16 19:57 Consult to Podiatry [CONS] Routine Consulting Provider: [facility] Reason for Consult: gas gangrene. called to Dr Sessions Call Completed: Yes 09/18/16 02:37 Consult to Generating Plant Superintendent [CONS] Routine Reason for SW Consult: Discharge planning 09/19/16 14:52 Consult to Vascular Surgery [CONS] Routine Consulting Provider: Vascular Surgery Rosalia Reason for Consult: OMI 0.65/0.68 with left foot wound Call Completed: No 09/21/16 09:33 Consult to Nephrology [CONS] Routine Consulting Provider: Kidney Janel/RAMESH/RONALD/BERTIN Reason for Consult: ANAI - scheudled for Angiogram Call Completed: Yes 09/21/16 10:46 Consult to Infectious Diseases [CONS] Routine Consulting Provider: Infectious Disease Ajnel Reason for Consult: Called by Dr. Gusman Time Notified: 10:46 Call Completed: Yes 09/24/16 09:41 Consult to Invasive Line Access Team [CONS] Routine Reason for Consult: Penitentiary IV Abx Line Type: EPIV 09/24/16 14:13 Consult to Physical Therapy [CONS] Routine Comment: Evaluate, develop and implement POC Reason for Consult: debilitation 09/24/16 14:14 Consult to Occupational Therapy [CONS] Routine Comment: Evaluate, develop and implement POC Reason for Consult: debilitation - Patient Status Disposition: Transfer SNF Condition: Good Overall status at discharge: patient is back to baseline - Discharge Instructions Follow Up With: Mara Kiser CNP [Primary Care Provider] - 10/04/16 4:00 pm Cali Casey MD [Partnered Physician] - (Follow-up with Dr. Casey 3 weeks following discharge) Additional Instructions: Check weekly CBC, BUN/Cr, ESR, CRP every Tuesday for the duration of treatment Weekly EPIV care per protocol Follow up with ID 09/10/16 at 0900 f/u with PCP in one week f/u with medical instrument cable fabricator Dr. Shabazz in 1 week f/u with vascular surgery Dr. Cali Casey in 2-4 weeks - Diet and Activity Activity: as per physical therapy Diet: low salt diet Hospital course: This is a 55 y/o M with known PMH of HTN, DM2, COPD, Chronic smoker, chronic alcohol dependent pt who recently admitted at [facility] for left foot gangrene developed after he stepped on a nail. [facility] Left foot swelling / tenderness and 4th and 5th toe black discoloration. Pt was admitted here for further care. pt was started on broad spectrum IV abx with Zosyn and Vancomycin. He was seen by medical instrument cable fabricator and performed a debridement at bed side however his left foot cellulites unchanged. He was still c/o pain, does have swelling and erythema with black discolored left 4th and 5th toe as well as base distal 4th,5th MTP joints. He did go for angioplasty with s/p Balloon angioplasty of left anterior tibial artery with 2 mm and 3 mm diameter balloons Balloon angioplasty of left popliteal and superficial femoral artery with 4 mm diameter balloon on 09/21/16. Status post I & D with amputation of toes #4 & #5 with resection of metatarsals #4 & #5 with bone biopsy on 09/23/16. Postoperative he has been doing well. His pain is tolerable with current medication. Pt was evaluated by ID and recommend to put him on 6 week IV Levofloxacin daily, Flagyl 500mg PO TID. Close f/u with ID as an out pt. He is going to f/u with [employer] as an out pt for wound care / wound vac orders. He was also in COPD exacerbation initially which improved with IV steroids and bronchodilators. His steroids were switched to PO and started tapering them slowly. - Time Spent with Patient Total time spent providing and/or coordinating discharge services: Greater than 30 minutes (Spent 45 minutes on this pt's discharge summary due to his prolonged hospitalization and he does required lot of education) - Constitutional Vitals: Temp Pulse Resp BP Pulse Ox 98.7 F 81 18 174/52 96 09/27/16 15:54 09/27/16 15:54 09/27/16 16:42 09/27/16 15:54 09/27/16 16:42 General appearance: Present: A&O X 3, no acute distress, answers questions appropriately - Respiratory Respiratory exam: Present: decreased breath sounds, wheezes. Absent: rales, respiratory distress, rhonchi - Cardiovascular Cardiovascular exam: Present: RRR, +S1, +S2. Absent: diastolic murmur, gallop, rubs, systolic murmur - GI/Abdominal GI/Abdominal exam: Present: normal bowel sounds, soft. Absent: rebound, tenderness - Extremities Exam Additional comments: s/p left 4th and 5th toe amputation - dressing an wound vac + on. Improving erythema and swelling noticed in the Left foot - Psychiatric Psychiatric exam: Present: normal affect, normal mood - VTE Documentation of Mechanical Device: Intermittent pneumatic compression device
--- NOTE | 2016-09-27 17:54 | Physician Discharge Referral ---
ExtendedCare Referral Info Transfer To: ECF Provider in Charge after Transfer: PCP Institutional Level of Care: Skilled (Check weekly CBC, BUN/Cr, ESR, CRP every Tuesday for the duration of treatment Weekly EPIV care per protocol Follow up with ID 09/10/16 at 0900 f/u with PCP in one week f/u with metal dresser Dr. Shabazz in 1 week f/u with vascular surgery Dr. Cali Casey in 2-4 weeks) - Diagnosis (1) Gangrene of left foot Status: Acute (2) Sepsis Status: Resolved (3) PAD (peripheral artery disease) Status: Acute (4) Acute kidney failure Status: Acute (5) Salicylate causing adverse effect in therapeutic use Status: Inactive (6) Diabetes mellitus, insulin dependent (IDDM), controlled Status: Acute (7) Elevated liver enzymes Status: Acute (8) Alcohol dependence Status: Chronic (9) COPD (chronic obstructive pulmonary disease) Status: Chronic (10) Hypertension Status: Chronic (11) Tobacco dependence Status: Chronic (12) DVT prophylaxis Status: Acute - Transfer Medications Prescriptions: OxyCODONE/APAP 5/325 [Percocet 5/325 MG] 1 each PO Q4HR PRN #20 tab PRN Reason: Mild To Moderate Pain Levofloxacin 750 MG/150 ML [Levaquin Premix 750mg/150 mL] 750 mg IVPB DAILY 38 Days metroNIDAZOLE [Flagyl] 500 mg PO TID 38 Days Saccharomyces Boulardii [Florastor] 250 mg PO BID 38 Days Home Medications: Insulin Aspart Prot/Insuln Asp [Novolog Mix 70-30 Flexpen Syrn] 0 unit SQ BID # 0 10/27/15 [History] Ranitidine HCl [Zantac] 150 mg PO BID PRN 08/31/16 [History] Amlodipine Besylate 10 mg PO DAILY #30 tablet 09/09/16 [Rx] Doxazosin [Cardura] 4 mg PO HS #30 tablet 09/09/16 [Rx] Magnesium Oxide [Mag-Ox] 400 mg PO BID #14 tablet 09/09/16 [Rx] FLUoxetine HCl [Prozac] 20 mg PO DAILY 09/17/16 [History] Lisinopril [Zestril] 20 mg PO DAILY 09/17/16 [History] Multivit-Min/Iron Fum/Folic AC [Zxpah-Xlypwki-Refuppmk Tablet] 1 tab PO DAILY [History] Clopidogrel [Plavix] 75 mg PO DAILY tab 09/27/16 [Rx] Ipratropium/Albuterol Neb [Duoneb] 3 ml IH [id number] PRN inh 09/27/16 [Rx] Levofloxacin 750 MG/150 ML [Levaquin Premix 750mg/150 mL] 750 mg IVPB DAILY 38 Days 09/27/16 [Rx] Metoprolol [Lopressor] 25 mg PO BID tab 09/27/16 [Rx] Nicotine Patch [Nicoderm] 21 mg TD DAILY PRN 09/27/16 [Rx] OxyCODONE/APAP 5/325 [Percocet 5/325 MG] 1 each PO Q4HR PRN #20 tab 09/27/16 [Rx ] Saccharomyces Boulardii [Florastor] 250 mg PO BID 38 Days 09/27/16 [Rx] metroNIDAZOLE [Flagyl] 500 mg PO TID 38 Days 09/27/16 [Rx] predniSONE [PredniSONE] 20 mg PO DAILY tab 09/27/16 [Rx] Allergies/Adverse Reactions: Allergies No Known Allergies Allergy (Verified 10/27/15 15:30) - Respiratory Orders Smoking Cessation: Smoking cessation has been advised. For more information, call the [place] Tobacco Quit Line at 8-485-BXTO-NOW. CERTIFICATION: I certify that the transfer of the above named patient to an Extended Care Facility is necessary for the continuing treatment of the diagnosis listed. The above information is true and accurate reflection of patient's current condition. Confidential - Redisclosure prohibited without a patient's written consent.
--- NOTE | 2016-09-29 17:13 | Invasive Diagnostic Lab ---
Name: Isaac Alonso Date of Study: 09/21/2016 Date: 1960 Ht: 163.1 in Medical Record#: [id number] Age: 55 Wt: 65.13671 lb Gender: Male BSA: 1.71 Order #: [id number] Fluoro: 324 mGy BMI: 24.77 Procedure MD: Cali Casey MD, FACS Referring MD: Hannah Aquino MD Referring MD: Pablito Shabazz DPM Procedures Performed: AORTOGRAPHY, ABDOMINAL S&I AORTOGRAPHY EXT Bilat S&I FEM/POPL REVAS W/TLA TIB/PER REVASC W/TLA Indications: Non-healing Ulcer Impressions: The Abdominal aorta is normal in appearance and free of obstructive disease. The bilateral renals have non-significant disease. The Aorta Bifurcation, Left Common Iliac, Right Common Iliac, Left External Iliac, and Right External Iliac have non significant disease. The right Superficial Femoral and left Superficial Femoral are occluded. The left Popliteal has significant, flow limiting disease. The Right Post. Tibial, Left Post. Tibial are occluded. The left Ant. Tibial has a critical stenosis with diffuse distal disease. Intervention including balloon angioplasty was performed successfully on the Left Ant. Tibial. Intervention including balloon angioplasty was performed successfully on the left Superficial Femoral and left Popliteal. Recommendations: Optimize medical therapy of patient's diseases, including aggressive treatment of left foot wounds now that the leg is re-vascularized . 75 mg Plavix PO daily. Aggressive risk factor modification to include, tobacco abuse and diabetes. Patient recommended for percutaneous intervention of Right SFA occlusion in the future as an outpatient. Possible left Post. Tibial endovascular intervention pending patient's vascular and wound response to the therapy rendered today History/ Risk Factors: Diabetes Hypertension Chronic Lung Disease Hx of Tobacco Use Technique: After informed consent was obtained the patient was placed on the angiographic table. The access areas were prepped and draped in the usual sterile fashion. A timeout protocol was observed. Access was obtained in the right femoral artery. The catheter was advanced over a wire to the suprarenal aorta and an abdominal aortogram was obtained. The injection catheter was then repositioned at the distal infrarenal aorta. An aortogram with bilateral lower extremity runoff was then performed. Critical lesions were seen on the angiogram and a decision was made to proceed to intervention. Diagnostic sheath was exchanged for a 6 Fr. 45 cm. A wire was advanced through the sheath and successfully advanced through the lesions. The glide catheter was selectively placed and the following images were obtained: Left SFA, Popliteal, Tibioperoneal Trunk, and Tibials. Heparin was administered. A 2 x 220 mm and then a 3 x 220 mm balloons were advanced over a wire and placed in the left anterior tibial lesions. Several inflations were then made. A completion angiogram was performed which demonstrated successful results. A 4 x 220 mm balloon was placed in the left popliteal and SFA lesions. Several inflations were then made. A completion angiogram was performed which demonstrated successful results. The sheath was removed and hemostasis was achieved with the following measures: Manual Pressure and Closure pad. Vessel Findings: * Lower Extremity Arteries There is an occlusion present in the Right Superficial Femoral. No intervention was performed on this occlusion. There is an occlusion present in the Right Post. Tibial. No intervention was performed on this occlusion. There is an occlusion present in the Mid Left Superficial Femoral. An intervention was performed on the Left Superficial Femoral. There were no complications in the vessel segment during the procedure. There is a lesion present with 75% stenosis, in the Left Popliteal. An intervention was performed on the Left Popliteal. There were no complications in the vessel segment during the procedure. There is a lesion present with 95% stenosis, in the Distal Left Ant. Tibial. An intervention was performed on the Left Ant. Tibial. There were no complications in the vessel segment during the procedure. There is a occlusion present in the Left Post. Tibial. No intervention was performed on this occlusion. Lesions: Right Superficial Femoral Stenosis: 100% Mid Left Superficial Femoral Stenosis: 100% Left Popliteal Stenosis: 75% Left Post. Tibial Stenosis: 100% Right Post. Tibial Stenosis: 100% Distal Left Ant. Tibial Stenosis: 95% Total Contrast: Isovue 300- 150ml 98mls Hemodynamic Data Site Location Systolic Timing Ao 169 Updated by Cali Casey MD, FACS on 09/21/2016 8:30:45 PM Cali Casey MD electronically signed on 09/29/2016 5:08:04 PM with status of Final
== END 2016-09-27 19:10 | DRG 710 ==
LOC: 2ANU → 2NNU 19:51 → SUATTDRO 19:53 → 3ANU 09-25 15:56
PROVIDERS: ADMIT Family Medicine; ATTEND Internal Medicine